=== PATIENT | male | born 1950 | race African-American/Black ===

== ENCOUNTER 2017-08-17 11:58 | Emergency (ER) | payer MEDICARE, BC ==
[~2017-08-17] VITALS: Ht 177.8 cm; Wt 69.8 kg
[~2017-08-17 11:58] MED LIST: ADVAIR HFA115 MCG/21 PO; ALBUTEROL SULFAT2 MG PO; ALBUTEROL2.5 MG/0.5 INH; ALBUTEROL2.5 MG/31 INH; ALDACTONE25 MG PO; ALLERGY MEDICAT25 MG PO; ASPIR 8181 MG PO; ASPIRIN325 PG; ATORVASTATIN CA40 MG PO; BENADRYL25 MG PO; BISACODYL5 MG PO; CALCIUM ACETAT667 MG; CARAFATE 1 GM TA1 G1 PO; CATAPRES0.1 MG PO; CEFUROXIME250 MG PO; CLONIDINE0.1 PO; COLACE100 MG PO; COREG3.125 MG PO; COUMADIN 2 MG TA2 M1 PO; COUMADIN 3 MG TA3 M1 PO; COUMADIN 5 MG TA5 M1; COUMADIN 5 MG TA5 M1 PO; CYCLOBENZAPRINE5 MG PO; DEMADEX20 MG PO; DOCUSATE SODIU100 MG PO; DULCOLAX5 MG PO; DUONEB 2.5-0.5 M3 ML INH; ENOXAPARIN60 MG/0.1; ENOXAPARIN60 MG/0.1 SUBQ; EPOGEN3000 UNIT/ IV; FENTANYL PA12 MCG/H1 TOP; FENTANYL PA25 MCG/HR TOP; HYDRALAZINE 2525 MG PO; HYDROCODONE-AP1 EAC6 PO; ISOSORBIDE MONO60 M1; ISOSORBIDE MONO60 M1 PO; LANTUS100 UNIT/M; LANTUS100 UNIT/M SUBQ; LASIX 40 MG TAB40 M2 PO; LASIX 80 MG TAB80 MG PO; LEVAQUIN 250 M250 MG PO; LEVAQUIN 500 M500 M1 PO; LIPITOR10 MG PO; LISINOPRIL5 MG PO; MAGNESIUM OXID400 MG PO; MELATONIN3 MG PO; MIDODRINE HCL 55 M1 PO; MULTIVITAMIN PO; NEPHROCAPS SOFT1 CAP PO; NORCO 5-325 TA1 EACH PO; NORVASC10 MG PO; NOVOLOG100 UNIT/1; NOVOLOG100 UNIT/1 SUBQ; NYAMYC15 GM TOP; OXYCODONE HCL 55 MG PO; OXYGEN MISCELL; OXYGEN NASAL; PACERONE 200 M200 M1 PO; PEPCID20 MG PO; PHENERGAN 25 MG25 M1 PO; PHOSLO667 MG PO; PREDNISONE 10 M10 MG PO; PREDNISONE 20 M20 M1 PO; PROTONIX40 M1 PO; REGLAN 10 MG TA10 MG PO; SEROQUEL 25 MG25 M2 PO; SINGULAIR 10 MG10 M1 PO; SYMBICORT80 MCG/4.1 INH; TOPROL XL100 MG PO; TYLENOL EXTRA500 MG PO; TYLENOL325 MG PO; VENTOLIN HFA 1818 GM PO; VITAMIN B-1100 M1 PO; VITAMIN D1000 UNI1 PO; XANAX 0.25 MG0.25 MG PO; ZOFRAN ODT4 MG PO
[2017-08-17 12:17] LABS: ABSOLUTE BASOPHILS 0.1 thou/uL (0.0-0.2); ABSOLUTE EOSINOPHILS 0.1 thou/uL (0.0-0.7); ABSOLUTE LYMPHOCYTES 0.7 thou/uL (0.8-5.3); ABSOLUTE MONOCYTES 0.7 thou/uL (0.0-1.2); ABSOLUTE NEUTROPHILS 3.6 thou/uL (1.6-8.1); BASOPHILS 1.4 %; EOSINOPHILS 1.9 %; HEMATOCRIT 35.9 % (42.0-52.0); HEMOGLOBIN 11.7 gm/dL (14.0-18.0); LYMPHOCYTES 14.3 %; MCH 33.5 pg (26.0-34.0); MCHC 32.5 g/dL (28.0-37.0); MCV 102.9 fL (80.0-100.0); MONOCYTES 13.4 %; MPV 8.6 fl. (7.2-11.1); NUCLEATED RBCS 0 /100WBC; PLATELET COUNT* 229 thou/uL (150-400); RBC 3.49 mil/uL (4.50-6.00); RDW-CV 19.1 % (10.5-14.5); WBC 5.2 thou/uL (4.0-11.0)
[2017-08-17 12:25] LABS: CALCIUM 9.1 mg/dL (8.5-10.1); CREATININE 2.9 mg/dL (0.6-1.3); POTASSIUM 4.2 mmol/L (3.5-5.1)
[2017-08-17 12:26] LABS: APTT 38.7 Seconds (25.0-31.3); INR 1.5
[2017-08-17 12:29] LABS: ALBUMIN 2.8 g/dL (3.4-5.0); TOTAL BILIRUBIN 0.4 mg/dL (<0.1-1.0); TOTAL PROTEIN 7.9 g/dL (6.4-8.2)
[2017-08-17 12:51] VITALS: BP 149/86
== END 2017-08-17 12:52 | disposition home or self-care (01) ==
LOC: M.ERS 11:58
PROVIDERS: Family Medicine
DX: Z48.01 Encounter for change or removal of surgical wound dressing (principal); J44.9 Chronic obstructive pulmonary disease, unspecified; E78.00 Pure hypercholesterolemia, unspecified; E11.9 Type 2 diabetes mellitus without complications; I50.9 Heart failure, unspecified; I10 Essential (primary) hypertension; Z79.4 Long term (current) use of insulin; Z88.0 Allergy status to penicillin

== ENCOUNTER → 2017-08-18 | Outpatient (CLI) | payer MEDICARE, BC | LOC: M.ULTRA 08-15 09:00 | DX: K76.0 Fatty (change of) liver, not elsewhere classified (principal); N26.1 Atrophy of kidney (terminal); K76.89 Other specified diseases of liver; I25.10 Atherosclerotic heart disease of native coronary artery without angina pectoris; I42.9 Cardiomyopathy, unspecified; N18.6 End stage renal disease; E11.9 Type 2 diabetes mellitus without complications; E78.00 Pure hypercholesterolemia, unspecified; I48.91 Unspecified atrial fibrillation; J15.6 Pneumonia due to other Gram-negative bacteria; J96.10 Chronic respiratory failure, unspecified whether with hypoxia or hypercapnia; E44.0 Moderate protein-calorie malnutrition; I13.2 Hypertensive heart and chronic kidney disease with heart failure and with stage 5 chronic kidney disease, or end stage renal disease; E11.22 Type 2 diabetes mellitus with diabetic chronic kidney disease; I50.23 Acute on chronic systolic (congestive) heart failure; J44.9 Chronic obstructive pulmonary disease, unspecified; E78.5 Hyperlipidemia, unspecified; E87.5 Hyperkalemia ==

== ENCOUNTER 2017-09-07 11:48 | Emergency (ER) | payer MEDICARE, BC ==
[~2017-09-07] VITALS: Ht 177.8 cm; Wt 70.1 kg
[2017-09-07 11:50] VITALS: BP 147/89
== END 2017-09-07 12:27 | disposition home or self-care (01) ==
LOC: M.ERS 11:48
DX: G97.52 Postprocedural hemorrhage of a nervous system organ or structure following other procedure (principal); J44.9 Chronic obstructive pulmonary disease, unspecified; I25.10 Atherosclerotic heart disease of native coronary artery without angina pectoris; E78.00 Pure hypercholesterolemia, unspecified; E11.22 Type 2 diabetes mellitus with diabetic chronic kidney disease; N18.6 End stage renal disease; I13.2 Hypertensive heart and chronic kidney disease with heart failure and with stage 5 chronic kidney disease, or end stage renal disease; Z99.2 Dependence on renal dialysis; Z79.4 Long term (current) use of insulin; Z88.0 Allergy status to penicillin; Y83.9 Surgical procedure, unspecified as the cause of abnormal reaction of the patient, or of later complication, without mention of misadventure at the time of the procedure; Y92.89 Other specified places as the place of occurrence of the external cause

== ENCOUNTER → 2017-09-15 | Outpatient (CLI) | payer MEDICARE, BC | LOC: M.CT 11:46 → M.RAD 11:46 → M.CT 13:00 | DX: M19.071 Primary osteoarthritis, right ankle and foot (principal); R91.1 Solitary pulmonary nodule; I70.0 Atherosclerosis of aorta; I77.819 Aortic ectasia, unspecified site; N62 Hypertrophy of breast; J43.8 Other emphysema; I25.10 Atherosclerotic heart disease of native coronary artery without angina pectoris; K76.89 Other specified diseases of liver; N20.0 Calculus of kidney; N18.6 End stage renal disease; I42.9 Cardiomyopathy, unspecified ==

== ENCOUNTER → 2017-10-13 | Outpatient (CLI) | payer MEDICARE, BC | LOC: M.LAB 08:52 → M.CT 11:00 | DX: J43.9 Emphysema, unspecified (principal); I71.2 Thoracic aortic aneurysm, without rupture; N18.6 End stage renal disease; K76.89 Other specified diseases of liver ==

== ENCOUNTER → 2017-11-15 | Outpatient (CLI) | payer MEDICARE, BC ==
[2017-11-15 10:32] LABS: ALBUMIN 2.8 g/dL (3.4-5.0); DIRECT BILIRUBIN 0.1 mg/dL (<0.1-0.3)
[2017-11-15 10:47] LABS: TOTAL BILIRUBIN 0.5 mg/dL (<0.1-1.0); TOTAL PROTEIN 8.1 g/dL (6.4-8.2)
== END ==
LOC: M.LAB 10:01
PROVIDERS: Nurse Practitioner
DX: I48.0 Paroxysmal atrial fibrillation (principal); Z79.899 Other long term (current) drug therapy; I13.2 Hypertensive heart and chronic kidney disease with heart failure and with stage 5 chronic kidney disease, or end stage renal disease; E11.22 Type 2 diabetes mellitus with diabetic chronic kidney disease; I50.9 Heart failure, unspecified; N18.6 End stage renal disease; J43.9 Emphysema, unspecified

== ENCOUNTER → 2018-05-23 | Outpatient (CLI) | payer MEDICARE, BC | LOC: M.RAD 11:00 | DX: I51.7 Cardiomegaly (principal); Z79.899 Other long term (current) drug therapy ==

== ENCOUNTER → 2018-07-20 | Outpatient (CLI) | payer MEDICARE | LOC: M.ULTRA 06:48 | DX: Z13.6 Encounter for screening for cardiovascular disorders (principal); I70.0 Atherosclerosis of aorta ==

== ENCOUNTER 2018-07-28 11:53 | Emergency (ER) | payer MEDICARE ==
[~2018-07-28] VITALS: Ht 177.8 cm; Wt 64.9 kg
[2018-07-28] MEDS ORDERED: RENAL CAPS SOFTG1 MG PO (12:01)
[2018-07-28] MEDS ORDERED: STOOL SOFTENER100 MG PO (12:03)
[2018-07-28] MEDS ORDERED: XANAX 0.25 MG0.25 MG PO (12:05)
[2018-07-28 12:58] LABS: HEMATOCRIT 33.2 % (42.0-52.0); MCH 34.3 pg (26.0-34.0); MCHC 33.3 g/dL (28.0-37.0); MPV 8.2 fl. (7.2-11.1); NUCLEATED RBCS 0 /100WBC; PLATELET COUNT* 192 thou/uL (150-400); RBC 3.22 mil/uL (4.50-6.00); RDW-CV 16.5 % (10.5-14.5); WBC 8.4 thou/uL (4.0-11.0)
[2018-07-28 13:06] LABS: CALCIUM 9.4 mg/dL (8.5-10.1); CREATININE 2.8 mg/dL (0.6-1.3)
[2018-07-28 13:08] LABS: APTT 49.7 Seconds (25.0-31.3); INR 1.8; PROTIME 17.9 Seconds (9.20-11.50)
[2018-07-28 13:18] LABS: ALBUMIN 2.6 g/dL (3.4-5.0); TOTAL BILIRUBIN 0.3 mg/dL (<0.1-1.0); TOTAL PROTEIN 8.1 g/dL (6.4-8.2)
[2018-07-28 13:20] LABS: ABSOLUTE LYMPHOCYTES 0.9 thou/uL (0.8-5.3); ABSOLUTE MONOCYTES 0.3 thou/uL (0.0-1.2); ABSOLUTE NEUTROPHILS 7.2 thou/uL (1.6-8.1); ATYPICAL LYMPHS 2 %; PLATELET ESTIMATE ADEQUATE
[2018-07-28 13:29] LABS: POTASSIUM 2.9 mmol/L (3.5-5.1)
[2018-07-28 14:10] VITALS: BP 124/76
== END 2018-07-28 14:11 | disposition home or self-care (01) ==
LOC: M.ERS 11:53
PROVIDERS: Emergency Medicine
DX: T82.838A Hemorrhage due to vascular prosthetic devices, implants and grafts, initial encounter (principal); J44.9 Chronic obstructive pulmonary disease, unspecified; I25.10 Atherosclerotic heart disease of native coronary artery without angina pectoris; E78.00 Pure hypercholesterolemia, unspecified; I13.2 Hypertensive heart and chronic kidney disease with heart failure and with stage 5 chronic kidney disease, or end stage renal disease; E11.22 Type 2 diabetes mellitus with diabetic chronic kidney disease; N18.6 End stage renal disease; I50.9 Heart failure, unspecified; Z99.2 Dependence on renal dialysis; Z79.4 Long term (current) use of insulin; Z88.0 Allergy status to penicillin; Z87.01 Personal history of pneumonia (recurrent); Y84.8 Other medical procedures as the cause of abnormal reaction of the patient, or of later complication, without mention of misadventure at the time of the procedure; Y92.89 Other specified places as the place of occurrence of the external cause

== ENCOUNTER → 2018-08-08 | Outpatient (CLI) | payer MEDICARE, BC ==
[~2018-08-08] VITALS: Ht 177.8 cm; Wt 65.1 kg
[~2018-08-08] MED LIST changes: -LIPITOR10 MG PO; +RENAL CAPS SOFTG1 MG PO; +STOOL SOFTENER100 MG PO
[2018-08-08 12:55] VITALS: BP 113/67
[2018-08-08 12:58] LABS: HEMATOCRIT 33.2 % (42.0-52.0); MCHC 33.1 g/dL (28.0-37.0); MCV 105.6 fL (80.0-100.0); MPV 8.6 fl. (7.2-11.1); RBC 3.14 mil/uL (4.50-6.00); RDW-CV 16.6 % (10.5-14.5); WBC 4.8 thou/uL (4.0-11.0)
[2018-08-08 13:06] LABS: CALCIUM 9.5 mg/dL (8.5-10.1); CREATININE 5.7 mg/dL (0.6-1.3); POTASSIUM 3.1 mmol/L (3.5-5.1)
[2018-08-08 13:08] LABS: APTT 59.8 Seconds (25.0-31.3); INR 2.4
[2018-08-08 13:10] LABS: ALBUMIN 2.5 g/dL (3.4-5.0); TOTAL BILIRUBIN 0.4 mg/dL (<0.1-1.0); TOTAL PROTEIN 7.8 g/dL (6.4-8.2)
[2018-08-08 16:00] VITALS: BP 117/72
[2018-08-08 16:15] VITALS: BP 128/71
--- NOTE | 2018-08-09 07:46 | OP ---
[address] [address] OPERATIVE REPORT Name: BING ALFONSO [id number] Admission: 08/08/18 Attend Phys: Tristin Priest DO Discharge: Date of : 46 Report #: [id number] THIS REPORT FOR: //name// CC: Tristin Kramer DATE OF SERVICE: 08/08/2018 PREOPERATIVE DIAGNOSES: End-stage renal disease with prolonged bleeding after hemodialysis. POSTOPERATIVE DIAGNOSES: End-stage renal disease with prolonged bleeding after hemodialysis. OPERATION: 1. Ultrasound-guided access to the right upper extremity fistula. 2. Right upper extremity fistulogram. 3. Right subclavian vein angioplasty. SURGEON: Tristin Priest DO. BACKPACKERS MANAGER: MAHIN Dalton. ANESTHESIA: Sedation with local. ESTIMATED BLOOD LOSS: 10 mL. FLUIDS: Less than 100 crystalloid. URINE OUTPUT: None. SPECIMENS: None. IMPLANTS: None. COMPLICATIONS: None. FINDINGS: His right upper extremity fistulogram demonstrated patent fistula circuit. There is really no significant anastomotic stenosis. There is really no significant stenosis within the main body of the fistula. There appeared to be mild to possibly moderate stenosis at the subclavian vein at the under section of the first rib and clavicle. Angioplasty of this, there is minimal waist and there is persistent mild residual stenosis. CLINICAL HISTORY: The patient is 68-year-old male with end-stage renal disease. He has been dialyzing through a transposed right brachiobasilic arteriovenous [facility] [address] [place] [address] OPERATIVE REPORT Name: BING ALFONSO Room: [facility] Diane#: [id number] Admission: 08/08/18 Attend Phys: Tristin Priest, Discharge: Date of : 46 Report #: [id number] fistula, has been now with some issues with prolonged bleeding after dialysis. He is therapeutic on anticoagulation for mechanical heart valve. Recommendations were made for fistulogram and possible intervention. DETAILS OF PROCEDURE: After informed consent was obtained, the patient was taken to the angio suite, placed on the angio bed in supine position. His right upper extremity was prepped and draped in usual sterile fashion. A full timeout was performed identifying correct patient and procedure. He was administered sedation by the nurse at my discretion. His right near the antecubital fossa infiltrated with local anesthetic and then accessed the fistula with a micropuncture needle using ultrasound guidance. These images were preserved. Then, using Seldinger technique, a microwire and micro sheath were placed and performed the right upper extremity fistulogram with the findings noted above. I then placed in a Bentson wire and a 6-Yakut sheath, isolated the stenosis in the subclavian vein and then angioplastied this with a 10 mm [place] balloon. Again there was minimal waist and just a persistent mild stenosis. It did not appear to be really hemodynamically significant. At this point, no real further significant stenosis identified. The 4-0 Monocryl pursestring suture was placed around the sheath. The wire and the sheath were removed. Manual pressure was held for a few minutes. Once hemostasis was assured, sterile dressing was applied. All sponge, sharp and instrument counts reported correct as x 2. He tolerated the procedure well and was transferred back to the recovery area in stable condition. We continued to use the fistula for dialysis needs. <ELECTRONICALLY SIGNED> By: Tristin Priest DO 08/09/18 0746 1549 1618Akalina Priest DO /nt
== END | disposition home or self-care (01) ==
LOC: M.INT 12:01
PROVIDERS: Surgery
DX: T82.838A Hemorrhage due to vascular prosthetic devices, implants and grafts, initial encounter (principal); I87.1 Compression of vein; I13.2 Hypertensive heart and chronic kidney disease with heart failure and with stage 5 chronic kidney disease, or end stage renal disease; E11.22 Type 2 diabetes mellitus with diabetic chronic kidney disease; N18.6 End stage renal disease; I50.9 Heart failure, unspecified; I42.9 Cardiomyopathy, unspecified; I25.10 Atherosclerotic heart disease of native coronary artery without angina pectoris; J44.9 Chronic obstructive pulmonary disease, unspecified; Z95.5 Presence of coronary angioplasty implant and graft; Z99.2 Dependence on renal dialysis; Z98.890 Other specified postprocedural states; Z79.899 Other long term (current) drug therapy; Z79.01 Long term (current) use of anticoagulants; Z95.2 Presence of prosthetic heart valve; Z87.891 Personal history of nicotine dependence; Z88.0 Allergy status to penicillin; Z79.4 Long term (current) use of insulin; Z79.891 Long term (current) use of opiate analgesic; Y83.8 Other surgical procedures as the cause of abnormal reaction of the patient, or of later complication, without mention of misadventure at the time of the procedure

== ENCOUNTER → 2018-08-17 | Outpatient (CLI) | payer MEDICARE, BC | LOC: M.NUC 06:41 → EDSTATUS 07:30 → M.NUC 07:30 | DX: K31.84 Gastroparesis (principal); R11.0 Nausea; R11.10 Vomiting, unspecified ==

== ENCOUNTER 2018-08-20 20:57 | Inpatient (IN) | payer MEDICARE, BC ==
[~2018-08-20] VITALS: Ht 177.8 cm; Wt 66.4 kg
[2018-08-20 20:59] VITALS: BP 111/71
[2018-08-20 21:24] LABS: ABSOLUTE BASOPHILS 0.1 thou/uL (0.0-0.2); ABSOLUTE EOSINOPHILS 0.1 thou/uL (0.0-0.7); ABSOLUTE LYMPHOCYTES 1.2 thou/uL (0.8-5.3); ABSOLUTE MONOCYTES 0.4 thou/uL (0.0-1.2); BASOPHILS 1.1 %; EOSINOPHILS 1.9 %; HEMATOCRIT 33.1 % (42.0-52.0); HEMOGLOBIN 10.7 gm/dL (14.0-18.0); LYMPHOCYTES 20.3 %; MCH 34.7 pg (26.0-34.0); MCHC 32.4 g/dL (28.0-37.0); MCV 106.9 fL (80.0-100.0); MONOCYTES 7.4 %; MPV 8.3 fl. (7.2-11.1); NUCLEATED RBCS 0 /100WBC; PLATELET COUNT* 227 thou/uL (150-400); POLYS 69.3 %; RBC 3.09 mil/uL (4.50-6.00); RDW-CV 16.7 % (10.5-14.5); WBC 5.8 thou/uL (4.0-11.0)
[2018-08-20 21:30] LABS: ANION GAP 15 mmol/L (7-16); BUN 34 mg/dL (7-18); CALCIUM 8.9 mg/dL (8.5-10.1); CHLORIDE 93 mmol/L (98-107); CO2 22 mmol/L (21-32); CREATININE 7.2 mg/dL (0.6-1.3); GLUCOSE 211 mg/dL (70-99); SODIUM 130 mmol/L (136-145)
[2018-08-20 21:30] LABS: BE -6.1 mmol/L (-2 to +3); PCO2 47.7 mmHg (35.0-45.0)
[2018-08-20 21:32] LABS: INR 3.4; PROTIME 34.2 Seconds (9.20-11.50)
[2018-08-20 21:34] LABS: pH 7.259 (7.340-7.450)
[2018-08-20 21:37] LABS: ALBUMIN 2.4 g/dL (3.4-5.0); ALKALINE PHOSPHATASE 118 U/L (46-116); SGOT 62 U/L (15-37); SGPT 36 U/L (30-65); TOTAL BILIRUBIN 0.3 mg/dL (<0.1-1.0); TOTAL PROTEIN 7.7 g/dL (6.4-8.2); TROPONIN-I LEVEL <0.06 ng/mL (<0.06)
[2018-08-20 21:39] LABS: POTASSIUM 4.5 mmol/L (3.5-5.1)
[2018-08-21 02:05] VITALS: BP 116/69
[2018-08-21 02:31] LABS: INFLUENZA A ANTIGEN None Detected (None Detect); INFLUENZA B ANTIGEN None Detected (None Detect)
[2018-08-21 03:00] VITALS: BP 126/69
[2018-08-21 08:00] VITALS: BP 128/70
[2018-08-21 09:43] LABS: HEMATOCRIT 26.9 % (42.0-52.0); HEMOGLOBIN 8.8 gm/dL (14.0-18.0); MCHC 32.6 g/dL (28.0-37.0); MCV 107.3 fL (80.0-100.0); MPV 8.2 fl. (7.2-11.1); RBC 2.51 mil/uL (4.50-6.00); RDW-CV 16.7 % (10.5-14.5)
[2018-08-21 09:51] LABS: CALCIUM 8.7 mg/dL (8.5-10.1); POTASSIUM 3.8 mmol/L (3.5-5.1)
--- NOTE | 2018-08-21 11:08 | EKG ---
[place] [id number] ELECTROCARDIOGRAM REPORT Name: BING ALFONSO Room: [address] ADM IN M.R.#: [id number] Admission: 08/20/18 Attend Phys: Johnnie Jeffrey Discharge: Date of : 46 Report #: [id number] THIS REPORT FOR: //name// [facility] ED Test Date: 2018-08-20 Test Time: 21:26:07 Pat Name: BING ALFONSO Department: Room: [facility] Gender: M Senior Software Development Engineer: BOBBI : 1950 Requested By: Sally Gonzalez Order Number: [id number] MD: Eugenio Alexandra Measurements Intervals [place] Rate: 85 P: -21 [place]: 188 QRS: -40 QRSD: 137 T: 122 QT: 433 QTc: 515 Interpretive Statements Sinus rhythm Left bundle branch block Baseline wander in lead(s) II,III,aVR,aVL,aVF Compared to ECG 05/27/2017 13:47:20 No significant changes Electronically Signed On 08-21-2018 11:08:39 SHOE REPAIRMAN by Eugenio Alexandra [email or web address] <ELECTRONICALLY SIGNED> By: Eugenio Alexandra MD, FACC 08/21/18 1108 25 25 Eugenio Alexandra MD, [facility] /EPI
[2018-08-21 13:44] VITALS: BP 133/80
[2018-08-21 17:13] VITALS: BP 100/61
[2018-08-21 20:00] VITALS: BP 106/65
[2018-08-22 00:38] VITALS: BP 126/72
[2018-08-22 04:00] VITALS: BP 101/62
[2018-08-22 05:34] LABS: HEMATOCRIT 26.4 % (42.0-52.0); HEMOGLOBIN 8.8 gm/dL (14.0-18.0); MCH 35.6 pg (26.0-34.0); MCHC 33.4 g/dL (28.0-37.0); MCV 106.6 fL (80.0-100.0); MPV 8.2 fl. (7.2-11.1); RBC 2.48 mil/uL (4.50-6.00); RDW-CV 16.1 % (10.5-14.5); WBC 4.9 thou/uL (4.0-11.0)
[2018-08-22 05:35] LABS: INR 3.6; PROTIME 36.3 Seconds (9.20-11.50)
[2018-08-22 06:14] LABS: ALBUMIN 2.2 g/dL (3.4-5.0); CALCIUM 9.1 mg/dL (8.5-10.1); CREATININE 4.3 mg/dL (0.6-1.3); MAGNESIUM 2.1 mg/dL (1.8-2.4); POTASSIUM 3.1 mmol/L (3.5-5.1); TOTAL BILIRUBIN 0.3 mg/dL (<0.1-1.0); TOTAL PROTEIN 6.1 g/dL (6.4-8.2)
[2018-08-22 08:00] VITALS: BP 105/62
--- NOTE | 2018-08-22 09:59 | CON ---
[address] [address] CONSULTATION Name: JEFF ALFONSO Room: [address] IN M.R.#: [id number] Admission: 08/20/18 Attend Phys: Johnnie Jeffrey Discharge: Date of : 46 Report #: [id number] THIS REPORT FOR: //name// CC: Tanya Meneses DATE OF SERVICE: 08/21/2018 NEPHROLOGY CONSULTATION CONSULTING PHYSICIAN: Jeff Meneses DO. REASON FOR NEPHROLOGY CONSULTATION: End-stage renal disease, for hemodialysis needs. REASON FOR ADMISSION: Confusion and weakness. HISTORY OF PRESENT ILLNESS: This is a 68-year-old male with past medical history of diabetes mellitus type 2, who has been on dialysis for 3 years; COPD with chronic hypoxia, on 3 liters of oxygen at home; congestive heart failure with ejection fraction of 20% back in 2017 and end-stage renal disease, on hemodialysis every Tuesday, Tuesday and Tuesday, who was brought to the Emergency Room because of generalized weakness and confusion. By the time he came to the hospital, his weakness still stayed, but his confusion has gone away. He did not miss any dialysis sessions; his last dialysis was on Tuesday. He is currently just weak. He has a right arm AV fistula. He does not make much urine. He goes to [facility] under the care of Dr. Rachel. ALLERGIES: PENICILLIN. REVIEW OF SYSTEMS: As mentioned above, weakness and confusion and confusion has resolved; otherwise, a 10-point review of systems was done and it was negative. PAST MEDICAL AND SURGICAL HISTORY: Includes COPD; end-stage renal disease, on hemodialysis every Tuesday, Tuesday and Tuesday. He has a right upper arm AV fistula; coronary artery disease, status post one stent; dyslipidemia; pneumonia with sepsis; mitral valve replacement; likely ischemic cardiomyopathy with ejection fraction of 20% back in 2017; diabetes type 2; hypertension and previous tracheostomy. HOME MEDICATIONS: Include magnesium oxide, amiodarone, pantoprazole, metoclopramide, warfarin, oxygen, midodrine, docusate, insulin glargine, furosemide, budesonide, acetaminophen, oxycodone, [place], clonidine, folic acid, alprazolam, atorvastatin [place] [address] CONSULTATION Name: JEFF ALFONSO Room: [address] IN [facility]#: [id number] Admission: 08/20/18 Attend Phys: Johnnie Jeffrey Discharge: Date of : 46 Report #: [id number] FAMILY HISTORY: Noncontributory to current admission. SOCIAL HISTORY: The patient reports not smoking, but he reports drinking 2 drinks of hard liquor every day. No illicit drug use reported. PHYSICAL EXAMINATION: VITAL SIGNS: His blood pressure is 128/70, respiratory rate is 18, pulse rate is 86, temperature 36.7 and pulse ox is 98% on 2 liters of oxygen by nasal cannula. GENERAL: He is awake, alert and oriented x 3. HEAD, EYES, EARS, NOSE AND THROAT: Mucous membranes are moist. NECK: There is no JVD. CHEST: Bilateral diminished breath sounds. CARDIOVASCULAR: S1, S2 normal. No murmurs. ABDOMEN: Soft, nondistended and nontender. Bowel sounds are present. EXTREMITIES: He has right upper arm AV fistula with good bruit and thrill. Lower extremities, there is no edema. NEUROLOGICAL FUNCTION. Gross neurologic function seems to be intact. PSYCHIATRIC: Mood at this point seems to be normal. LABORATORY DATA: Hemoglobin is 10.7, platelet count is 227,000. Sodium is 130 and potassium 4.5 and all other labs were reviewed. ABG was reviewed. IMAGING DATA: Neck CT, head CT, chest x-ray, chest CT and abdominal and pelvic CT were reviewed. ASSESSMENT: 1. End-stage renal disease, on hemodialysis every Tuesday, Tuesday and Tuesday. 2. Hyponatremia due to impaired free water clearance, sodium 130 on admission. 3. Anemia of chronic disease. Hemoglobin 10.7 on admission. 4. Confusion, has resolved. 5. Generalized weakness. 6. Combination of respiratory and metabolic acidosis. 7. Elevated AST and alkaline phosphatase. 8. 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 9. Chronic hypotension, use of midodrine as needed. PLAN: 1. Plan on dialysis today. The patient looks pretty euvolemic at this point, so we will try to bring him down to his dry weight. 2. Treatment for his weakness as per primary. He might need physical therapy. 3. I have stopped his morphine as well as magnesium oxide because of renal insufficiency. Sodium should get better with dialysis. [address] [place] [address] CONSULTATION Name: JEFF ALFONSO Room: [address] IN M.R.#: [id number] Admission: 08/20/18 Attend Phys: Johnnie Jeffrey Discharge: Date of : 46 Report #: [id number] Thank you for the consultation. We will continue to follow along with you for his dialysis needs. <ELECTRONICALLY SIGNED> By: Adela Molina MD 08/22/18 0959 0909 1051Abonilla Molina MD /nt
[2018-08-22 12:14] VITALS: BP 97/60
[2018-08-22 17:32] VITALS: BP 103/63
[2018-08-22 20:00] VITALS: BP 96/63
[2018-08-23 04:12] LABS: HEMATOCRIT 25.6 % (42.0-52.0); HEMOGLOBIN 8.5 gm/dL (14.0-18.0); MCH 35.4 pg (26.0-34.0); MCHC 33.2 g/dL (28.0-37.0); MCV 106.7 fL (80.0-100.0); MPV 8.3 fl. (7.2-11.1); RBC 2.4 mil/uL (4.50-6.00); WBC 4.8 thou/uL (4.0-11.0)
[2018-08-23 04:31] LABS: INR 2.5; PROTIME 25.1 Seconds (9.20-11.50)
[2018-08-23 04:35] LABS: CALCIUM 8.9 mg/dL (8.5-10.1); POTASSIUM 3.6 mmol/L (3.5-5.1)
[2018-08-23 07:50] VITALS: BP 105/64
[2018-08-23 15:30] VITALS: BP 105/63
[2018-08-23 20:30] VITALS: BP 91/58
[2018-08-24 06:20] LABS: ABSOLUTE BASOPHILS 0.1 thou/uL (0.0-0.2); ABSOLUTE EOSINOPHILS 0.1 thou/uL (0.0-0.7); ABSOLUTE LYMPHOCYTES 0.7 thou/uL (0.8-5.3); ABSOLUTE MONOCYTES 0.6 thou/uL (0.0-1.2); ABSOLUTE NEUTROPHILS 2.7 thou/uL (1.6-8.1); BASOPHILS 1.4 %; EOSINOPHILS 2.8 %; HEMATOCRIT 26.8 % (42.0-52.0); HEMOGLOBIN 8.8 gm/dL (14.0-18.0); LYMPHOCYTES 16.3 %; MCH 35.1 pg (26.0-34.0); MCHC 32.8 g/dL (28.0-37.0); MONOCYTES 14.6 %; MPV 8.4 fl. (7.2-11.1); NUCLEATED RBCS 0 /100WBC; PLATELET COUNT* 140 thou/uL (150-400); POLYS 64.9 %; RDW-CV 16.3 % (10.5-14.5); WBC 4.2 thou/uL (4.0-11.0)
[2018-08-24 06:24] LABS: INR 1.7; PROTIME 16.9 Seconds (9.20-11.50)
[2018-08-24 06:38] LABS: ALBUMIN 2.1 g/dL (3.4-5.0); CALCIUM 8.5 mg/dL (8.5-10.1); POTASSIUM 4.1 mmol/L (3.5-5.1); TOTAL BILIRUBIN 0.3 mg/dL (<0.1-1.0); TOTAL PROTEIN 6.4 g/dL (6.4-8.2)
[2018-08-24 06:39] LABS: CREATININE 3.5 mg/dL (0.6-1.3)
[2018-08-24 07:20] VITALS: BP 105/62
[2018-08-24 07:22] LABS: ESR (SEDRATE) 37 mm/hr (0-20)
[2018-08-24] MEDS ORDERED: NORCO 5-325 TA1 EACH PO (08:59)
[2018-08-24] MEDS ORDERED: XANAX 0.25 MG0.25 MG PO (08:59)
[2018-08-24] MEDS ORDERED: BENTYL 20 MG TA20 M1 PO (08:59)
[2018-08-24 10:16] VITALS: BP 105/62
[2018-08-24 13:13] VITALS: BP 105/62
--- NOTE | 2018-08-26 22:50 | CON ---
[address] [address] CONSULTATION Name: BING ALFONSO Room: [address] IN M.R.#: [id number] Admission: 08/20/18 Attend Phys: Johnnie Jeffrey Discharge: 08/24/18 Date of : 46 Report #: [id number] THIS REPORT FOR: //name// CC: Leilani Meneses DATE OF SERVICE: 08/23/2018 REFERRING PHYSICIAN: Dr. Indu Landeros REASON FOR CONSULTATION: Recurrent nausea and vomiting. IMPRESSION: 1. Recurrent nausea and vomiting with a history of gastroparesis, but now with tachygastria by recent gastric emptying scan. 2. End-stage renal disease requiring chronic hemodialysis. 3. Diabetes mellitus with complications. 4. Coronary artery disease, previous non-STEMI and history of congestive heart failure. RECOMMENDATIONS: Since the patient has continued to have problem with nausea and vomiting despite being on Reglan 10 mg q.i.d. a.c. and at bedtime and then dropping the dose down to 5 mg q.i.d. a.c. and at bedtime with his most recent gastric emptying scan revealed relatively fast emptying, we will discontinue the Reglan altogether and begin him on Bentyl 10 mg q.i.d. a.c. and at bedtime and titrate upwards as needed. I have discussed the plans with the patient as well and he is agreeable to the same. HISTORY OF PRESENT ILLNESS: The patient is a pleasant 68-year-old -[place] male who was admitted to the hospital because of problems with weakness and decreased mental status with decreased mobility. We were asked to see him because he has had problems with continued issues related to nausea and vomiting and has been followed by our practice for quite some time. He has had history of gastroparesis with his previous gastric emptying scan revealing up to 15% of retained food at 4 hours, but most recently he was seen in our office by our PA, Nakita Tellez, and underwent a gastric emptying scan on the , which revealed a relatively fast emptying at 1-2 hours and with no residual food noted at 3 and 4 hours. Despite the fact that his dosing was decreased on the Reglan, he continued to have problem with nausea and vomiting. It happens on a fairly daily basis. He denies any regurgitation or reflux issues. He feels he just gets the food down and he starts throwing back up. He has not had any problems with abdominal pain or any problem with his bowels or bowel frequency. His bowels are moving fine. He has undergone endoscopic studies [place] [address] CONSULTATION Name: BING ALFONSO Room: [address] IN M.R.#: [id number] Admission: 08/20/18 Attend Phys: Johnnie Jeffrey Discharge: 08/24/18 Date of : 46 Report #: [id number] the past and not been unrevealing. He has been in the hospital for further evaluation and treatment. ALLERGIES: Not that I know of. MEDICATIONS: Include Symbicort, acetaminophen, oxycodone just intermittently, clonidine, folic acid, alprazolam, amiodarone, pantoprazole once daily, metoclopramide 10 mg q.i.d. a.c. and at bedtime and now down to 5, warfarin, midodrine, docusate sodium, insulin, furosemide and atorvastatin. PAST MEDICAL HISTORY: Remarkable for coronary artery disease, he has history of CHF, he has history of chronic kidney disease and end-stage renal disease requiring chronic hemodialysis. He has a right upper extremity fistula. He has a history of gastroparesis, diabetes, hypertension and hyperlipidemia. He has had previous mitral valve replacement as well. SOCIAL HISTORY: The patient quit smoking over a year ago, previously had about a 53 pack year history. Drinks alcohol on a regular basis. FAMILY HISTORY: Negative. PHYSICAL EXAMINATION: GENERAL: Revealed appearing 68-year-old -[place] male who is awake and alert. CARDIOPULMONARY: Revealed a regular rate and rhythm. LUNGS: Clear. ABDOMEN: Soft and not distended. No rebound or guarding noted. LABORATORY DATA: His laboratory tests today revealed a white count of 4.8, hemoglobin 8.5, platelet count 138,000, MCV is 106.7 and RDW 16.0. His sodium 134, potassium 3.6, chloride 99, bicarbonate is 30, BUN 36 and creatinine 6.0. On admission, his bilirubin is 0.3, alkaline phosphatase is 92, AST 30 and ALT 29. His albumin is 2.2. The patient had a CT scan of the abdomen and pelvis without IV contrast yesterday, which revealed a prominent liver of about 17.5 with some cysts. Spleen appeared normal. Gallbladder and biliary system appeared normal. Pancreas appears normal. There was no evidence for any fluid within the abdominal cavity such as any ascites. His stomach, small and large bowel appeared to be unremarkable. No evidence for any ileus or any other issues. DISCUSSION: At the present time, the patient [place] [address] CONSULTATION Name: BING ALFONSO Room: [address] IN [facility].#: [id number] Admission: 08/20/18 Attend Phys: Johnnie Jeffrey Discharge: 08/24/18 Date of : 46 Report #: [id number] nausea and vomiting. We will make adjustments with his medications and monitor for response to the same. <ELECTRONICALLY SIGNED> By: Ascencion Monique DO 08/26/18 2250 1639 0527Ascencion Monique DO /nt
== END 2018-08-24 13:08 | DRG 291 ==
LOC: M.ERS 20:57 → M.TBA-ER 23:25 → M.2W 23:25 → M.3W 08-22 14:43
PROVIDERS: Emergency Medicine; Internal Medicine; Internal Medicine Gastroenterology; ADMIT Internal Medicine
PROC: 5A1D70Z Performance of Urinary Filtration, Intermittent, Less than 6 Hours Per Day (ICD-10-PCS; principal; 2018-08-21)
PROC: 5A1D70Z Performance of Urinary Filtration, Intermittent, Less than 6 Hours Per Day (ICD-10-PCS; 2018-08-23)
DX: I13.2 Hypertensive heart and chronic kidney disease with heart failure and with stage 5 chronic kidney disease, or end stage renal disease (principal); N18.6 End stage renal disease; E87.1 Hypo-osmolality and hyponatremia; E87.2 Acidosis; I50.9 Heart failure, unspecified; I42.9 Cardiomyopathy, unspecified; E78.00 Pure hypercholesterolemia, unspecified; E78.5 Hyperlipidemia, unspecified; D63.8 Anemia in other chronic diseases classified elsewhere; I71.2 Thoracic aortic aneurysm, without rupture; I95.9 Hypotension, unspecified; E11.22 Type 2 diabetes mellitus with diabetic chronic kidney disease; E87.6 Hypokalemia; J44.9 Chronic obstructive pulmonary disease, unspecified; I25.10 Atherosclerotic heart disease of native coronary artery without angina pectoris; Z95.5 Presence of coronary angioplasty implant and graft; Z95.2 Presence of prosthetic heart valve; Z88.0 Allergy status to penicillin; Z93.0 Tracheostomy status; I25.2 Old myocardial infarction; Z87.891 Personal history of nicotine dependence; Z82.49 Family history of ischemic heart disease and other diseases of the circulatory system; Z83.3 Family history of diabetes mellitus

== ENCOUNTER → 2018-09-14 | Outpatient (CLI) | payer MEDICARE, BC ==
[~2018-09-14] MED LIST changes: +ATROVENT HFA14 GM INH; +BASAGLAR K100 UNIT/1 SUBQ; +BENTYL 20 MG TA20 M1 PO; +LOPERAMIDE 2 MG2 M1 PO; +PREDNISONE 10 M10 M1 PO
== END ==
LOC: M.CT 10:00
DX: J43.9 Emphysema, unspecified (principal); J90 Pleural effusion, not elsewhere classified; J98.11 Atelectasis; R91.8 Other nonspecific abnormal finding of lung field

== ENCOUNTER → 2018-09-20 | Outpatient (CLI) | payer MEDICARE, BC ==
[~2018-09-20] MED LIST changes: +KEFLEX500 M1 PO; -MAGNESIUM OXID400 MG PO; +MAGOX 400400 MG PO
== END ==
LOC: M.RAD 10:50
DX: J44.9 Chronic obstructive pulmonary disease, unspecified (principal); Z95.4 Presence of other heart-valve replacement

== ENCOUNTER 2018-09-21 12:04 | Inpatient (IN) | payer MEDICARE, BC ==
[~2018-09-21] VITALS: Ht 172.7 cm; Wt 65.8 kg
[~2018-09-21 12:04] MED LIST changes: -ATROVENT HFA14 GM INH; -BASAGLAR K100 UNIT/1 SUBQ; -KEFLEX500 M1 PO; -LOPERAMIDE 2 MG2 M1 PO; -PREDNISONE 10 M10 M1 PO
[2018-09-21 12:13] VITALS: BP 110/62
[2018-09-21 12:36] LABS: ABSOLUTE BASOPHILS 0.1 thou/uL (0.0-0.2); ABSOLUTE EOSINOPHILS 0.1 thou/uL (0.0-0.7); ABSOLUTE LYMPHOCYTES 1.1 thou/uL (0.8-5.3); ABSOLUTE MONOCYTES 0.6 thou/uL (0.0-1.2); ABSOLUTE NEUTROPHILS 4.9 thou/uL (1.6-8.1); BASOPHILS 1.2 %; EOSINOPHILS 1.3 %; HEMATOCRIT 29.1 % (42.0-52.0); HEMOGLOBIN 9.5 gm/dL (14.0-18.0); LYMPHOCYTES 16.3 %; MCH 33.6 pg (26.0-34.0); MCHC 32.5 g/dL (28.0-37.0); MCV 103.2 fL (80.0-100.0); MONOCYTES 8.7 %; MPV 8.4 fl. (7.2-11.1); NUCLEATED RBCS 0 /100WBC; PLATELET COUNT* 226 thou/uL (150-400); POLYS 72.5 %; RBC 2.82 mil/uL (4.50-6.00); RDW-CV 17.5 % (10.5-14.5); WBC 6.7 thou/uL (4.0-11.0)
[2018-09-21 12:48] LABS: APTT 60.9 Seconds (25.0-31.3); INR 2.7; PROTIME 27.4 Seconds (9.20-11.50)
[2018-09-21] MEDS ORDERED: BASAGLAR K100 UNIT/1 SUBQ (12:48)
[2018-09-21] MEDS ORDERED: LOPERAMIDE 2 MG2 M1 PO (12:49)
[2018-09-21] MEDS ORDERED: ATROVENT HFA14 GM INH (12:50)
[2018-09-21] MEDS ORDERED: PREDNISONE 10 M10 M1 PO (12:51)
[2018-09-21 12:57] LABS: ALBUMIN 2.6 g/dL (3.4-5.0); ALKALINE PHOSPHATASE 142 U/L (46-116); ANION GAP 15 mmol/L (7-16); BUN 36 mg/dL (7-18); CALCIUM 9.7 mg/dL (8.5-10.1); CHLORIDE 98 mmol/L (98-107); CO2 26 mmol/L (21-32); GLUCOSE 254 mg/dL (70-99); LIPASE 154 U/L (73-393); MAGNESIUM 2.1 mg/dL (1.8-2.4); NT-PRO BRAIN NAT PEPTIDE 9744 pg/mL (<300); POTASSIUM 3.6 mmol/L (3.5-5.1); SGOT 17 U/L (15-37); SGPT 33 U/L (30-65); SODIUM 139 mmol/L (136-145); TOTAL BILIRUBIN 0.3 mg/dL (<0.1-1.0); TOTAL PROTEIN 7.6 g/dL (6.4-8.2); TROPONIN-I LEVEL <0.06 ng/mL (<0.06)
[2018-09-21 13:45] LABS: BE 0.6 mmol/L (-2 to +3); PCO2 VENOUS 37.4 mmHg (41.0-51.0); PO2 VENOUS 54.6 mmHg (35.0-45.0)
--- NOTE | 2018-09-21 15:01 | EKG ---
[place] [address] ELECTROCARDIOGRAM REPORT Name: BING ALFONSO WON Room: [place] [address] ADM IN M.R.#: [id number] Admission: 09/21/18 Attend Phys: Johnnie Jeffrey Discharge: Date of : 46 Report #: [id number] THIS REPORT FOR: //name// [facility] ED Test Date: 2018-09-21 Test Time: 12:13:03 Pat Name: BING ALFONSO Department: Room: [facility] Gender: Process Designer: Gonzalo HENRIQUEZ : 1950 Requested By: Manpreet George Order Number: [id number] MD: Arturo Mo Measurements Intervals [place] Rate: 84 P: 15 VT: 176 QRS: -30 QRSD: 116 T: 101 QT: 425 QTc: 503 Interpretive Statements Sinus rhythm LVH with IVCD and secondary repol abnrm Prolonged QT interval Compared to ECG 08/20/2018 21:26:07 Intraventricular conduction delay now present Left ventricular hypertrophy now present Early repolarization now present Prolonged QT interval now present Left bundle-branch block no longer present Electronically Signed On 09-21-2018 15:01:28 ACCOUNTS PAYABLE ADMINISTRATOR by Arturo Mo [email or web address] <ELECTRONICALLY SIGNED> By: Arturo Mo MD, [facility] 09/21/18 1501 1213 1213 Arturo Mo MD, [facility] /EPI
[2018-09-21 18:39] VITALS: BP 134/76
[2018-09-21 19:00] VITALS: BP 113/63
[2018-09-21 20:00] VITALS: BP 101/64
[2018-09-22 01:10] VITALS: BP 115/63
[2018-09-22 04:00] VITALS: BP 113/64
[2018-09-22 04:34] LABS: HEMOGLOBIN 8.7 gm/dL (14.0-18.0); MCH 32.9 pg (26.0-34.0); MCHC 32.3 g/dL (28.0-37.0); MCV 101.8 fL (80.0-100.0); MPV 8.6 fl. (7.2-11.1); NUCLEATED RBCS 0 /100WBC; PLATELET COUNT* 197 thou/uL (150-400); RBC 2.65 mil/uL (4.50-6.00); RDW-CV 17.3 % (10.5-14.5); WBC 9.6 thou/uL (4.0-11.0)
[2018-09-22 05:16] LABS: ALBUMIN 2.4 g/dL (3.4-5.0); CALCIUM 9.5 mg/dL (8.5-10.1); CREATININE 7.7 mg/dL (0.6-1.3); POTASSIUM 4.4 mmol/L (3.5-5.1); TOTAL BILIRUBIN 0.2 mg/dL (<0.1-1.0); TOTAL PROTEIN 7.2 g/dL (6.4-8.2)
[2018-09-22 05:44] LABS: ABSOLUTE LYMPHOCYTES 0.2 thou/uL (0.8-5.3); ABSOLUTE MONOCYTES 0.2 thou/uL (0.0-1.2); ABSOLUTE NEUTROPHILS 9.2 thou/uL (1.6-8.1); ANISOCYTOSIS Occasional; PLATELET ESTIMATE ADEQUATE; TOXIC GRANULATION 1+
[2018-09-22 08:00] VITALS: BP 113/62
--- NOTE | 2018-09-22 17:36 | 2DMMODE ---
[place] [address] 2 D/M-MODE ECHOCARDIOGRAM Name: NATYJEFF WON Room: [facility] ADM IN [facility]#: [id number] Admission: 09/21/18 Attend Phys: Jeff Meneses Discharge: Date of : 46 Date of Service: 09/22/18 1735 Report #: [id number] THIS REPORT FOR: //name// APPROVED REPORT Study performed: 09/22/2018 15:00:22 EXAM: Comprehensive 2D, Doppler, and color-flow Echocardiogram Patient Location: In-Patient Room #: [facility] Status: routine BSA: 1.78 HR: 93 bpm BP: 113/64 mmHg Rhythm: NSR Other Information Study Quality: Good Indications Dyspnea 2D Dimensions IVSd: 13.66 (7-11mm) LVOT Diam: 22.93 (18-24mm) LVDd: 54.95 mm PWd: 14.63 (7-11mm) Ascending Ao: 34.96 (22-36mm) LVDs: 41.97 (25-40mm) Aortic Root: 33.17 mm Volumes Left Atrial Volume (Systole) LA ESV Index: 41.50 mL/m2 Aortic Valve AoV Peak Case.: 1.81 m/s AO Peak Gr.: 13.09 mmHg LVOT Max P.82 mmHg AO Mean Gr.: 7.26 mmHg LVOT Mean P.30 mmHg LVOT Max V: 0.84 m/s AO V2 VTI: 29.40 cm LVOT Mean V: 0.51 m/s BREONNA (VTI): 1.97 cm2 LVOT V1 VTI: 14.03 cm Mitral Valve E/A Ratio: 0.85 MV Decel. Time: 165.12 ms MV E Max Case.: 1.35 m/[place] [address] 2 D/M-MODE ECHOCARDIOGRAM Name: JEFF ALFONSO Room: [place] [address] ADM IN .R.#: [id number] Admission: 09/21/18 Attend Phys: Jeff Meneses Discharge: Date of : 46 Date of Service: 09/22/18 1735 Report #: [id number] MV PHT: 47.88 ms MVA (PHT): 4.59 cm2 TDI E/Lateral E': 15.00 E/Medial E': 19.29 Medial E' Case.: 0.07 m/s Lateral E' Case.: 0.09 m/s Pulmonary Valve PV Peak Case.: 0.97 m/s PV Peak Gr.: 3.80 mmHg Left Ventricle The left ventricle is normal size. There is moderately severe diffuse hypokinesis. Moderate concentric left ventricular hypertrophy. Left ventricular systolic function is moderately decreased. LVEF is 30-35%. The left ventricular diastolic function is normal. Right Ventricle The right ventricle is normal size. The right ventricular systolic function is normal. Atria Left atrium is mild to moderately dilated. The right atrium size is normal. Aortic Valve Mild aortic valve sclerosis. No aortic regurgitation is present. No hemodynamically significant valvular aortic stenosis. Mitral Valve The mitral valve is normal in structure. There is a mechanical mitral valve. Trace mitral regurgitation. No evidence of mitral valve stenosis. Tricuspid Valve The tricuspid valve is normal in structure. Trace tricuspid regurgitation. Pulmonic Valve The pulmonary valve is normal in structure. Mild pulmonic regurgitation. Great Vessels The aortic root is normal in size. IVC is normal in size and collapses >50% [place] [address] 2 D/M-MODE ECHOCARDIOGRAM Name: NATYJEFF WON Room: [address] IN [facility]#: [id number] Admission: 09/21/18 Attend Phys: Jeff Meneses Discharge: Date of : 46 Date of Service: 09/22/18 1735 Report #: [id number] Pericardium There is no pericardial effusion. <Conclusion> The left ventricle is normal size. Moderate concentric left ventricular hypertrophy. LVEF is 30-35%. The right ventricle is normal size. Left atrium is mild to moderately dilated. Mild aortic valve sclerosis. No aortic regurgitation is present The mitral valve is normal in structure. The tricuspid valve is normal in structure. IVC is normal in size and collapses >50% with inspiration. There is no pericardial effusion. There is moderately severe diffuse hypokinesis. There is a mechanical mitral valve. No hemodynamically significant valvular aortic stenosis. <ELECTRONICALLY SIGNED> By: Jean-Pierre Garcia MD, FACC 09/22/18 1735 1735 1735 eJan-Pierre Garcia MD, FACC /INF
[2018-09-22 20:33] VITALS: BP 91/59
[2018-09-23] VITALS: BP 127/64
[2018-09-23 04:08] VITALS: BP 121/71
[2018-09-23 08:00] VITALS: BP 117/76
[2018-09-23 12:00] VITALS: BP 131/80
[2018-09-23 16:00] VITALS: BP 110/66
[2018-09-23 20:20] VITALS: BP 131/71
[2018-09-24] VITALS: BP 123/71
[2018-09-24 04:00] VITALS: BP 143/79
[2018-09-24 08:00] VITALS: BP 157/85
[2018-09-24] MEDS ORDERED: PREDNISONE 10 M10 MG PO (09:15)
[2018-09-24] MEDS ORDERED: KEFLEX500 M1 PO (09:15)
[2018-09-24 20:35] VITALS: BP 115/63
[2018-09-25 04:27] VITALS: BP 121/59
[2018-09-25 08:00] VITALS: BP 136/75
--- NOTE | 2018-09-25 09:52 | CON ---
[address] [address] CONSULTATION Name: NATYJEFF SHAHDOCK Room: [place] [address] ADM IN M.R.#: [id number] Admission: 09/21/18 Attend Phys: Johnnie Jeffrey Discharge: Date of : 46 Report #: [id number] THIS REPORT FOR: //name// CC: Tanya Meneses DATE OF SERVICE: 09/22/2018 CONSULTING PHYSICIAN: Jeff Meneses DO. REASON FOR NEPHROLOGY CONSULTATION: End-stage renal disease for dialysis needs. REASON FOR ADMISSION: Shortness of breath after dialysis. HISTORY OF PRESENT ILLNESS: This is a 68-year-old male who has past medical history of end-stage renal disease. He is on hemodialysis every Tuesday, Tuesday, Tuesday, history of diabetes mellitus type 2, COPD on 2 liters of oxygen at home, coronary artery disease, congestive heart failure, MVR, came in with trouble breathing, which started while dialysis day before yesterday. Chest x-ray showed some congestion. He also has a history of COPD, so he is also being treated for possible COPD exacerbation. He is still a little bit short of breath and his had also noted that his abdomen has been more distended in the last couple of days. He was seen in dialysis this morning. ALLERGIES: PENICILLINS. REVIEW OF SYSTEMS: As mentioned above in history of present illness, otherwise 10-point review of systems done is negative. HOME MEDICATIONS: Include dicyclomine, hydrocodone, alprazolam, midodrine, insulin glargine, loperamide, ipratropium, prednisone, clonidine, folic acid, magnesium oxide, amiodarone, pantoprazole, docusate, budesonide, acetaminophen, atorvastatin, furosemide, insulin aspart. PAST MEDICAL AND PAST SURGICAL HISTORY: Right upper arm fistula, COPD, coronary artery disease with stent, hyperlipidemia, pneumonia, diabetes mellitus type 2, hypertension, mitral valve replacement, cardiomyopathy, hypertension and he is on dialysis Tuesday, Tuesday and Tuesday; previous tracheostomy. FAMILY HISTORY: No history of any kidney disease in the family. SOCIAL HISTORY: He is a former smoker. He lives at home with his . He does not use illicit drugs. He does drink about 6 ounces of Bacardi every day. PHYSICAL EXAMINATION: VITAL SIGNS: Blood pressure is 113/64, pulse is 90, temperature 36.3, [place] [address] CONSULTATION Name: JEFF ALFONSO Room: [address] IN [facility]#: [id number] Admission: 09/21/18 Attend Phys: Johnnie Jeffrey Discharge: Date of : 46 Report #: [id number] 3 liters of oxygen by nasal cannula and his pulse ox is 100%. GENERAL: He is seen on dialysis. He is awake, alert, oriented x 3. He has mild tachypnea. HEAD, EYES, EARS, NOSE AND THROAT: Mucous membranes are moist. NECK: There is no JVD. CHEST: Bilateral diminished breath sounds. No crackles or wheezing. CARDIOVASCULAR: S1 and S2 normal. No murmurs heard. ABDOMEN: Slightly distended, obese and bowel sounds are diminished. EXTREMITIES: There is no lower extremity edema, symmetrical lower extremities. NEUROLOGICAL: Gross neurological function is intact. PSYCHIATRIC: Mood and affect seem to be normal. LABORATORY DATA: Hemoglobin 8.7, platelet count is 197. Sodium 135, potassium is 4.4 and CO2 is 23 and other labs are reviewed. IMAGING: Chest x-ray was reviewed. ASSESSMENT: 1. End-stage renal disease, on hemodialysis every Tuesday, Tuesday, Tuesday. 2. Admitted with dyspnea, acute respiratory failure and chronic respiratory failure, chronic obstructive pulmonary disease exacerbation versus some pulmonary vascular congestion. 3. Anemia of chronic kidney disease. Hemoglobin 8.7. 4. Hypertension. 5. Diabetes type 2. PLAN: 1. The patient was seen on dialysis, we will try to remove more fluid today and see if it helps with his breathing, we will try to aim for 3.5 liters removal if he tolerates it. 2. We will stop his magnesium standing. We will check his magnesium level tomorrow. Magnesium level was normal today. 3. We will give him Epogen for anemia at 10,000 units. Thank you for this consultation. We will continue to follow along with you for dialysis needs. <ELECTRONICALLY SIGNED> By: Adela Molina MD 09/25/18 0952 0930 0235Abonilla Molina MD /nt
[2018-09-25 16:45] VITALS: BP 91/58
[2018-09-25 20:45] VITALS: BP 103/62
[2018-09-26 08:05] VITALS: BP 129/74
[2018-09-26 09:22] VITALS: BP 129/74
== END 2018-09-26 16:30 | disposition home or self-care (01) | DRG 291 ==
LOC: M.ERS 12:04 → M.2W 13:09 → M.TBA-ER 13:09 → M.2W 18:41 → M.3W 09-25 18:12
PROVIDERS: Family Medicine; ADMIT Internal Medicine
PROC: 5A1D70Z Performance of Urinary Filtration, Intermittent, Less than 6 Hours Per Day (ICD-10-PCS; principal; 2018-09-22)
PROC: 5A1D70Z Performance of Urinary Filtration, Intermittent, Less than 6 Hours Per Day (ICD-10-PCS; 2018-09-25)
DX: I13.2 Hypertensive heart and chronic kidney disease with heart failure and with stage 5 chronic kidney disease, or end stage renal disease (principal); J96.20 Acute and chronic respiratory failure, unspecified whether with hypoxia or hypercapnia; I50.23 Acute on chronic systolic (congestive) heart failure; N18.6 End stage renal disease; J44.1 Chronic obstructive pulmonary disease with (acute) exacerbation; I25.10 Atherosclerotic heart disease of native coronary artery without angina pectoris; E11.22 Type 2 diabetes mellitus with diabetic chronic kidney disease; E78.5 Hyperlipidemia, unspecified; D63.1 Anemia in chronic kidney disease; I34.0 Nonrheumatic mitral (valve) insufficiency; Z88.0 Allergy status to penicillin; Z79.4 Long term (current) use of insulin; Z95.5 Presence of coronary angioplasty implant and graft; Z79.899 Other long term (current) drug therapy; Z79.01 Long term (current) use of anticoagulants; Z83.3 Family history of diabetes mellitus; Z82.49 Family history of ischemic heart disease and other diseases of the circulatory system; Z87.891 Personal history of nicotine dependence

== ENCOUNTER 2018-10-17 13:27 | Inpatient (IN) | payer MEDICARE, BC ==
[~2018-10-17] VITALS: Ht 177.8 cm; Wt 70.8 kg
[~2018-10-17 13:27] MED LIST changes: +ATROVENT HFA14 GM INH; +BASAGLAR K100 UNIT/1 SUBQ; +KEFLEX500 M1 PO; +LOPERAMIDE 2 MG2 M1 PO; +PREDNISONE 10 M10 M1 PO
[2018-10-17 13:58] VITALS: BP 100/57
[2018-10-17] MEDS ORDERED: XANAX 0.25 MG0.25 MG PO (14:09)
[2018-10-17] MEDS ORDERED: REGLAN 10 MG TA10 MG PO (14:09)
[2018-10-17] MEDS ORDERED: NORCO 5-325 TA1 EACH PO (14:11)
[2018-10-17 14:14] LABS: HEMOGLOBIN 9.9 gm/dL (14.0-18.0); MCH 32.7 pg (26.0-34.0); MCHC 32.1 g/dL (28.0-37.0); MPV 8.5 fl. (7.2-11.1); NUCLEATED RBCS 0 /100WBC; PLATELET COUNT* 225 thou/uL (150-400); RBC 3.04 mil/uL (4.50-6.00); RDW-CV 17.5 % (10.5-14.5)
[2018-10-17 14:31] LABS: ALBUMIN 2.3 g/dL (3.4-5.0); ALKALINE PHOSPHATASE 163 U/L (46-116); ANION GAP 15 mmol/L (7-16); BUN 30 mg/dL (7-18); CALCIUM 9.3 mg/dL (8.5-10.1); CHLORIDE 93 mmol/L (98-107); CO2 26 mmol/L (21-32); GLUCOSE 376 mg/dL (70-99); MAGNESIUM 2.6 mg/dL (1.8-2.4); POTASSIUM 4.1 mmol/L (3.5-5.1); SGOT 13 U/L (15-37); SGPT 24 U/L (30-65); SODIUM 134 mmol/L (136-145); TOTAL BILIRUBIN 0.2 mg/dL (<0.1-1.0); TOTAL PROTEIN 6.9 g/dL (6.4-8.2); TROPONIN-I LEVEL <0.06 ng/mL (<0.06)
[2018-10-17 14:37] LABS: INR 10.3
[2018-10-17 15:14] LABS: ABSOLUTE LYMPHOCYTES 0.2 thou/uL (0.8-5.3); ABSOLUTE MONOCYTES 0.5 thou/uL (0.0-1.2); ABSOLUTE NEUTROPHILS 9.3 thou/uL (1.6-8.1); ANISOCYTOSIS 1+
[2018-10-17 15:15] LABS: MACROCYTES Occasional; PLATELET ESTIMATE ADEQUATE
[2018-10-17] MEDS ORDERED: LANTUS100 UNIT/M SUBQ (17:18)
[2018-10-17] MEDS ORDERED: NOVOLOG100 UNIT/1 SUBQ (17:18)
[2018-10-17 17:55] VITALS: BP 97/58
[2018-10-17 18:31] VITALS: BP 142/68
[2018-10-17 19:58] LABS: PROTIME 104.7 Seconds (9.20-11.50)
[2018-10-17 20:01] LABS: INR 10.4
[2018-10-17 21:30] VITALS: BP 107/62
[2018-10-18] VITALS: BP 83/47
[2018-10-18 04:00] VITALS: BP 116/66
[2018-10-18 05:35] LABS: PROTIME 35.5 Seconds (9.20-11.50)
[2018-10-18 05:46] LABS: INR 3.5
[2018-10-18 12:24] VITALS: BP 93/57
[2018-10-18 15:50] VITALS: BP 118/68
--- NOTE | 2018-10-18 15:55 | EKG ---
[place] [address] ELECTROCARDIOGRAM REPORT Name: NATYBING WON Room: [address] ADM IN M.R.#: [id number] Admission: 10/17/18 Attend Phys: Johnnie Jeffrey Discharge: Date of : 46 Report #: [id number] THIS REPORT FOR: //name// [facility] ED Test Date: 2018-10-17 Test Time: 13:57:52 Pat Name: BING ALFONSO Department: Room: [facility] Gender: M Electric Range Preparer: GAVIN : 1950 Requested By: Maribel Augustin Order Number: [id number] MD: Jean-Pierre Garcia Measurements Intervals [place] Rate: 69 P: 31 NV: 182 QRS: -28 QRSD: 135 T: 167 QT: 430 QTc: 461 Interpretive Statements Sinus rhythm LEFT VENTRICULAR HYPERTROPHY with IVCD Compared to ECG 09/21/2018 12:13 no significant change Electronically Signed On 10-18-2018 15:54:52 CDT by Jean-Pierre Garcia [email or web address] <ELECTRONICALLY SIGNED> By: Jean-Pierre Garcia MD, [facility] 10/18/18 1554 1357 1357 Jean-Pierre Garcia MD, FACC /EPI
[2018-10-18 16:10] LABS: PROTIME 15.7 Seconds (9.20-11.50)
[2018-10-18 16:14] LABS: INR 1.5
[2018-10-18 20:10] VITALS: BP 98/57
[2018-10-19] VITALS: BP 119/59
[2018-10-19 02:14] LABS: ABSOLUTE LYMPHOCYTES 0.7 thou/uL (0.8-5.3); ABSOLUTE MONOCYTES 0.6 thou/uL (0.0-1.2); ABSOLUTE NEUTROPHILS 5.7 thou/uL (1.6-8.1); BASOPHILS 0.6 %; EOSINOPHILS 0.6 %; HEMATOCRIT 29.6 % (42.0-52.0); HEMOGLOBIN 9.6 gm/dL (14.0-18.0); LYMPHOCYTES 9.7 %; MCH 32.9 pg (26.0-34.0); MCHC 32.5 g/dL (28.0-37.0); MCV 101.3 fL (80.0-100.0); MONOCYTES 8.8 %; MPV 8.1 fl. (7.2-11.1); NUCLEATED RBCS 0 /100WBC; PLATELET COUNT* 175 thou/uL (150-400); POLYS 80.3 %; RBC 2.92 mil/uL (4.50-6.00); RDW-CV 17.4 % (10.5-14.5); WBC 7.1 thou/uL (4.0-11.0)
[2018-10-19 02:30] LABS: CALCIUM 8.8 mg/dL (8.5-10.1); INR 1.3; POTASSIUM 3.7 mmol/L (3.5-5.1); PROTIME 12.9 Seconds (9.20-11.50); TOTAL BILIRUBIN 0.2 mg/dL (<0.1-1.0); TOTAL PROTEIN 5.9 g/dL (6.4-8.2)
[2018-10-19 02:31] LABS: APTT 71.7 Seconds (25.0-31.3); CREATININE 4.4 mg/dL (0.6-1.3)
[2018-10-19 04:00] VITALS: BP 103/49
[2018-10-19 08:00] VITALS: BP 109/73
--- NOTE | 2018-10-19 10:14 | CON ---
[address] [address] CONSULTATION Name: NATYJEFF Room: [address] IN M.R.#: [id number] Admission: 10/17/18 Attend Phys: Johnnie Jeffrey Discharge: Date of : 46 Report #: [id number] THIS REPORT FOR: //name// CC: Tanya Meneses DATE OF SERVICE: 10/18/2018 NEPHROLOGY CONSULTATION CONSULTING PHYSICIAN: Jeff Meneses DO REASON FOR CONSULTATION: End-stage kidney disease. HISTORY OF PRESENT ILLNESS: A 68-year-old gentleman who was admitted with an elevated INR here, found to be over 10. He was given a dose of vitamin K. Denies any signs or symptoms of bleeding, and his INR this morning was 3.5. He is seen on hemodialysis, is tolerating treatment well and has no complaints at present time. No chest pain or shortness of breath. No nausea, vomiting or diarrhea. REVIEW OF SYSTEMS: Constitutional, psych, heme, eyes, ENT, respiratory, cardiac, GI, , endocrine, all negative except as documented above. PAST MEDICAL HISTORY: End-stage kidney disease, COPD, coronary artery disease, history of mitral valve replacement, diabetes, hypertension. FAMILY HISTORY: Positive for diabetes. SOCIAL HISTORY: No current tobacco use. MEDICATIONS: Reviewed. PHYSICAL EXAMINATION: VITAL SIGNS: Blood pressure 116/66, pulse 62, temperature 36.5, respirations 18. GENERAL: In no acute distress. EYES: Open. EARS: Externally normal. CARDIOVASCULAR: Regular rate. LUNGS: Diminished breath sounds. ABDOMEN: Soft. MUSCULOSKELETAL: Nontender. PSYCHIATRIC: Awake, alert. LABORATORY DATA: White cell count 10, hemoglobin 9.9, platelets 225. Sodium [facility] [address] [place] [address] CONSULTATION Name: JEFF ALFONSO Room: [address] IN [facility].#: [id number] Admission: 10/17/18 Attend Phys: Johnnie Jeffrey Discharge: Date of : 46 Report #: [id number] 134, potassium 4.1, chloride 93, bicarbonate 26, BUN 30, creatinine 7, glucose 376, calcium 9.3, magnesium 2.6, albumin 2.3. INR 3.5. ASSESSMENT AND PLAN: 1. End-stage kidney disease, on hemodialysis Tuesday, Tuesday and Tuesday at the [facility]. 2. Hyponatremia. 3. Elevated INR of 10.4, did receive a dose of vitamin K with improvement in his INRs down to 3.5. 4. Diabetes, type 2. 5. Chronic obstructive pulmonary disease. 6. Coronary artery disease. 7. History of mitral valve replacement. PLAN: 1. Continue maintenance dialysis. He is tolerating dialysis well today. Ultrafilter as tolerated. He does have some chronic hypotension and is on midodrine. Blood pressure is stable at present. 2. Blood sugar control per internal medicine. 3. We will follow for dialysis needs. Next dialysis will be on Tuesday. If any questions in the interim, please call. Thank you for requesting my opinion in the care and management of this patient. <ELECTRONICALLY SIGNED> By: Leilani Rachel MD 10/19/18 1014 1056 [id number] Rachel MD /nt
[2018-10-19 12:26] VITALS: BP 104/63
[2018-10-19 16:10] VITALS: BP 124/62
[2018-10-19 20:00] VITALS: BP 115/65
[2018-10-20] VITALS: BP 105/52
[2018-10-20 04:00] VITALS: BP 132/75
[2018-10-20 05:04] LABS: HEMOGLOBIN 9.1 gm/dL (14.0-18.0); MCH 32.7 pg (26.0-34.0); MCHC 32.6 g/dL (28.0-37.0); MCV 100.5 fL (80.0-100.0); MPV 7.9 fl. (7.2-11.1); RBC 2.79 mil/uL (4.50-6.00); RDW-CV 17.7 % (10.5-14.5); WBC 8.3 thou/uL (4.0-11.0)
[2018-10-20 05:28] LABS: CALCIUM 9.2 mg/dL (8.5-10.1); POTASSIUM 4.2 mmol/L (3.5-5.1)
[2018-10-20 05:30] LABS: CREATININE 6.7 mg/dL (0.6-1.3); INR 1.2; PROTIME 11.8 Seconds (9.20-11.50)
[2018-10-20 08:10] VITALS: BP 123/72
[2018-10-20 16:00] VITALS: BP 122/71
[2018-10-20 19:40] VITALS: BP 111/61
[2018-10-21] VITALS: BP 107/54
[2018-10-21 04:00] VITALS: BP 121/69
[2018-10-21 04:49] LABS: HEMATOCRIT 26.7 % (42.0-52.0); HEMOGLOBIN 8.7 gm/dL (14.0-18.0); MCH 33.2 pg (26.0-34.0); MCHC 32.7 g/dL (28.0-37.0); MCV 101.3 fL (80.0-100.0); MPV 8.5 fl. (7.2-11.1); RBC 2.63 mil/uL (4.50-6.00); RDW-CV 17.8 % (10.5-14.5); WBC 7.7 thou/uL (4.0-11.0)
[2018-10-21 05:00] LABS: INR 1.2; PROTIME 11.8 Seconds (9.20-11.50)
[2018-10-21 05:07] LABS: CALCIUM 8.7 mg/dL (8.5-10.1); POTASSIUM 4.8 mmol/L (3.5-5.1)
[2018-10-21 05:08] LABS: CREATININE 4.4 mg/dL (0.6-1.3)
[2018-10-21 08:42] VITALS: BP 154/60
[2018-10-21 12:04] VITALS: BP 132/61
[2018-10-21 16:17] VITALS: BP 132/72
[2018-10-21 19:50] VITALS: BP 141/77
[2018-10-22] VITALS: BP 130/80
[2018-10-22 04:00] VITALS: BP 134/74
[2018-10-22 05:02] LABS: HEMATOCRIT 24.6 % (42.0-52.0); HEMOGLOBIN 8.1 gm/dL (14.0-18.0); MCH 33.2 pg (26.0-34.0); MCHC 33.1 g/dL (28.0-37.0); MCV 100.4 fL (80.0-100.0); MPV 8.1 fl. (7.2-11.1); RBC 2.45 mil/uL (4.50-6.00); RDW-CV 17.9 % (10.5-14.5); WBC 7.9 thou/uL (4.0-11.0)
[2018-10-22 05:16] LABS: INR 1.4; PROTIME 13.9 Seconds (9.20-11.50)
[2018-10-22 05:40] LABS: ALBUMIN 1.8 g/dL (3.4-5.0); CALCIUM 9.3 mg/dL (8.5-10.1); PHOSPHORUS* 0.7 mg/dL (2.5-4.9); POTASSIUM 5.1 mmol/L (3.5-5.1)
[2018-10-22 05:47] LABS: CREATININE 6.1 mg/dL (0.6-1.3)
[2018-10-22 08:22] VITALS: BP 125/50
[2018-10-22 11:47] VITALS: BP 134/76
[2018-10-22 15:24] VITALS: BP 114/65
[2018-10-22 19:40] VITALS: BP 141/85
[2018-10-23] VITALS: BP 144/84
[2018-10-23 04:00] VITALS: BP 152/84
[2018-10-23 07:44] LABS: APTT 55.3 Seconds (25.0-31.3); INR 2.2; PROTIME 22.4 Seconds (9.20-11.50)
[2018-10-23 08:11] VITALS: BP 156/85
[2018-10-23 12:33] VITALS: BP 149/85
[2018-10-23 13:09] LABS: CREATININE 8.4 mg/dL (0.6-1.3)
[2018-10-23 13:13] LABS: POTASSIUM 6.4 mmol/L (3.5-5.1)
[2018-10-23 14:16] LABS: HEMATOCRIT 30.6 % (42.0-52.0); HEMOGLOBIN 9.5 gm/dL (14.0-18.0); MCH 32.3 pg (26.0-34.0); MCV 104.3 fL (80.0-100.0); MPV 8.4 fl. (7.2-11.1); NUCLEATED RBCS 0 /100WBC; RBC 2.93 mil/uL (4.50-6.00); RDW-CV 18.3 % (10.5-14.5)
[2018-10-23 14:18] LABS: PLATELET COUNT* 245 thou/uL (150-400)
[2018-10-23 15:38] LABS: BE -10.3 mmol/L (-2 to +3); PCO2 46.6 mmHg (35.0-45.0); PO2 113.6 mmHg (75.0-100.0)
[2018-10-23 15:41] LABS: pH 7.193 (7.340-7.450)
[2018-10-23 15:48] LABS: ALKALINE PHOSPHATASE 123 U/L (46-116); ANION GAP 12 mmol/L (7-16); BUN 45 mg/dL (7-18); CALCIUM 10.4 mg/dL (8.5-10.1); CHLORIDE 97 mmol/L (98-107); CO2 22 mmol/L (21-32); GLUCOSE 326 mg/dL (70-99); MAGNESIUM 1.7 mg/dL (1.8-2.4); POTASSIUM 6.4 mmol/L (3.5-5.1); SGOT 33 U/L (15-37); SGPT 31 U/L (30-65); SODIUM 131 mmol/L (136-145); TOTAL BILIRUBIN 0.3 mg/dL (<0.1-1.0); TOTAL PROTEIN 6.6 g/dL (6.4-8.2); TROPONIN-I LEVEL <0.06 ng/mL (<0.06)
[2018-10-23 16:06] LABS: ABSOLUTE EOSINOPHILS 0.3 thou/uL (0.0-0.7); ABSOLUTE LYMPHOCYTES 1.9 thou/uL (0.8-5.3); ABSOLUTE MONOCYTES 1.9 thou/uL (0.0-1.2); ABSOLUTE NEUTROPHILS 12.9 thou/uL (1.6-8.1)
[2018-10-23 16:07] LABS: ANISOCYTOSIS 1+; MACROCYTES Occasional; PLATELET ESTIMATE ADEQUATE
[2018-10-23 16:08] LABS: MICROCYTES Occasional
--- NOTE | 2018-10-23 16:55 | EKG ---
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: : 1950 Requested By: Jeff Meneses Order Number: [id number] Jazmin MD: Christian Parada Measurements Intervals [place] Rate: 114 P: 261 [place]: 131 QRS: -46 QRSD: 174 T: 112 QT: 381 QTc: 525 Interpretive Statements Wide-complex tachycardia Compared to ECG 10/17/2018 13:57:52 Left bundle-branch block now present Sinus rhythm no longer present Electronically Signed On 10-23-2018 16:54:55 CDT by Christian Parada [email or web address] <ELECTRONICALLY SIGNED> By: Christian Parada MD, [facility] 10/23/18 7341 1357 1357 Christian Parada MD, [facility] /EPI
[2018-10-23 20:00] VITALS: BP 108/59
[2018-10-23 22:00] VITALS: BP 105/52
[2018-10-24] VITALS (19 sets, daily range): BP systolic 96–141; BP diastolic 56–81
[2018-10-24 04:48] LABS: ABSOLUTE BASOPHILS 0.1 thou/uL (0.0-0.2); ABSOLUTE LYMPHOCYTES 0.5 thou/uL (0.8-5.3); ABSOLUTE MONOCYTES 1.1 thou/uL (0.0-1.2); ABSOLUTE NEUTROPHILS 10.2 thou/uL (1.6-8.1); BASOPHILS 0.4 %; EOSINOPHILS 0.1 %; HEMATOCRIT 25.2 % (42.0-52.0); HEMOGLOBIN 8.3 gm/dL (14.0-18.0); LYMPHOCYTES 4.4 %; MCH 32.7 pg (26.0-34.0); MCHC 32.8 g/dL (28.0-37.0); MCV 99.8 fL (80.0-100.0); MONOCYTES 9.3 %; MPV 8.2 fl. (7.2-11.1); NUCLEATED RBCS 0 /100WBC; POLYS 85.8 %; RBC 2.53 mil/uL (4.50-6.00); RDW-CV 17.9 % (10.5-14.5); WBC 11.9 thou/uL (4.0-11.0)
[2018-10-24 05:05] LABS: INR 2.4; PROTIME 24.5 Seconds (9.20-11.50)
[2018-10-24 05:10] LABS: PLATELET COUNT* 167 thou/uL (150-400)
[2018-10-24 05:58] LABS: MAGNESIUM 2.3 mg/dL (1.8-2.4); PHOSPHORUS* 2.1 mg/dL (2.5-4.9); POTASSIUM 5.8 mmol/L (3.5-5.1)
[2018-10-24 06:06] LABS: CREATININE 4.4 mg/dL (0.6-1.3)
[2018-10-25] VITALS (46 sets, daily range): BP systolic 112–148; BP diastolic 54–96
[2018-10-25 05:02] LABS: INR 2.5; PROTIME 25.5 Seconds (9.20-11.50)
[2018-10-25 05:15] LABS: ALBUMIN 1.9 g/dL (3.4-5.0); ANION GAP 8 mmol/L (7-16); BUN 17 mg/dL (7-18); CALCIUM 8.8 mg/dL (8.5-10.1); CHLORIDE 97 mmol/L (98-107); CHOLESTEROL 188 mg/dL (<200); CO2 30 mmol/L (21-32); CREATININE 3.9 mg/dL (0.6-1.3); GLUCOSE 130 mg/dL (70-99); HDL CHOLESTEROL 97 mg/dL (>40); LDL CHOLESTEROL 79 mg/dL (<100); PHOSPHORUS* 2.5 mg/dL (2.5-4.9); SODIUM 135 mmol/L (136-145); TC:HDL 1.9 Ratio (Not establshd); TRIGLYCERIDE 62 mg/dL (<150); VLDL 12 mg/dL (<40)
[2018-10-25 05:31] LABS: POTASSIUM 4.6 mmol/L (3.5-5.1)
[2018-10-25 06:40] LABS: SERUM ASSESSMENT Clear
[2018-10-26 00:01] VITALS: BP 140/87
[2018-10-26 04:33] LABS: INR 1.9; PROTIME 19.7 Seconds (9.20-11.50)
[2018-10-26 07:58] LABS: HEMATOCRIT 25.2 % (42.0-52.0); HEMOGLOBIN 8.1 gm/dL (14.0-18.0); MCH 32.5 pg (26.0-34.0); MCHC 32.1 g/dL (28.0-37.0); MCV 101.1 fL (80.0-100.0); NUCLEATED RBCS 0 /100WBC; PLATELET COUNT* 190 thou/uL (150-400); RBC 2.49 mil/uL (4.50-6.00); RDW-CV 18.3 % (10.5-14.5); WBC 6.1 thou/uL (4.0-11.0)
[2018-10-26 08:06] LABS: ALBUMIN 2.1 g/dL (3.4-5.0); CALCIUM 9.1 mg/dL (8.5-10.1); CREATININE 3.4 mg/dL (0.6-1.3); POTASSIUM 4.4 mmol/L (3.5-5.1); TOTAL BILIRUBIN 0.1 mg/dL (<0.1-1.0); TOTAL PROTEIN 5.5 g/dL (6.4-8.2)
[2018-10-26 08:12] VITALS: BP 144/75
[2018-10-26 08:36] LABS: ABSOLUTE LYMPHOCYTES 0.5 thou/uL (0.8-5.3); ABSOLUTE MONOCYTES 1.6 thou/uL (0.0-1.2); ANISOCYTOSIS 1+; ATYPICAL LYMPHS 2 %; METAMYELOCYTES 4 %; MYELOCYTES 1 %; PLATELET ESTIMATE ADEQUATE
[2018-10-26 11:46] VITALS: BP 138/67
[2018-10-26 15:53] VITALS: BP 145/65
[2018-10-27] VITALS (7 sets, daily range): BP systolic 102–150; BP diastolic 68–76
[2018-10-27 05:03] LABS: INR 2.1; PROTIME 21.5 Seconds (9.20-11.50)
[2018-10-27 07:58] LABS: HEMATOCRIT 24.7 % (42.0-52.0); HEMOGLOBIN 7.9 gm/dL (14.0-18.0); MCH 32.7 pg (26.0-34.0); MPV 8.6 fl. (7.2-11.1); NUCLEATED RBCS 0 /100WBC; PLATELET COUNT* 202 thou/uL (150-400); RBC 2.42 mil/uL (4.50-6.00); RDW-CV 18.4 % (10.5-14.5); WBC 6.2 thou/uL (4.0-11.0)
[2018-10-27 08:00] LABS: ALBUMIN 2.2 g/dL (3.4-5.0); CALCIUM 8.9 mg/dL (8.5-10.1); POTASSIUM 4.9 mmol/L (3.5-5.1); TOTAL BILIRUBIN 0.2 mg/dL (<0.1-1.0); TOTAL PROTEIN 5.6 g/dL (6.4-8.2)
[2018-10-27 08:02] LABS: CREATININE 5.8 mg/dL (0.6-1.3)
[2018-10-27 08:32] LABS: ABSOLUTE BASOPHILS 0.1 thou/uL (0.0-0.2); ABSOLUTE EOSINOPHILS 0.1 thou/uL (0.0-0.7); ABSOLUTE LYMPHOCYTES 0.6 thou/uL (0.8-5.3); ABSOLUTE MONOCYTES 0.9 thou/uL (0.0-1.2); ABSOLUTE NEUTROPHILS 4.5 thou/uL (1.6-8.1); PLATELET ESTIMATE ADEQUATE
[2018-10-27 08:33] LABS: ANISOCYTOSIS 1+; POIKILOCYTOSIS 1+
[2018-10-27] MEDS ORDERED: ONDANSETRON HCL4 M2 PO (14:04)
[2018-10-27] MEDS ORDERED: COUMADIN 5 MG TA5 M1 PO (14:09)
[2018-10-27] MEDS ORDERED: NOVOLOG100 UNIT/1 PO (14:17)
[2018-10-27] MEDS ORDERED: MELATONIN5 M1 PO (14:21)
[2018-10-27] MEDS ORDERED: NEPHROCAPS SOFT1 CAP PO (14:24)
[2018-10-27] MEDS ORDERED: ORAL ANALGESIC9 GM TOP (14:29)
[2018-10-27] MEDS ORDERED: SENOKOT-S TABL1 EACH PO (14:31)
[2018-10-28] VITALS: BP 130/57
[2018-10-28 04:00] VITALS: BP 140/71
[2018-10-28 05:26] LABS: INR 2.3; PROTIME 23.4 Seconds (9.20-11.50)
[2018-10-28 08:00] VITALS: BP 122/74
[2018-10-28 11:09] LABS: ALBUMIN 2.2 g/dL (3.4-5.0); POTASSIUM 5.3 mmol/L (3.5-5.1); TOTAL BILIRUBIN 0.2 mg/dL (<0.1-1.0)
[2018-10-28 11:10] LABS: CREATININE 3.8 mg/dL (0.6-1.3)
[2018-10-28 11:58] LABS: ABSOLUTE BASOPHILS 0.1 thou/uL (0.0-0.2); ABSOLUTE EOSINOPHILS 0.1 thou/uL (0.0-0.7); ABSOLUTE LYMPHOCYTES 0.7 thou/uL (0.8-5.3); ABSOLUTE MONOCYTES 1.1 thou/uL (0.0-1.2); ABSOLUTE NEUTROPHILS 5.6 thou/uL (1.6-8.1); BASOPHILS 1.4 %; EOSINOPHILS 0.9 %; HEMATOCRIT 27.8 % (42.0-52.0); LYMPHOCYTES 9.7 %; MCH 32.6 pg (26.0-34.0); MCHC 32.4 g/dL (28.0-37.0); MCV 100.7 fL (80.0-100.0); MONOCYTES 14.6 %; MPV 8.2 fl. (7.2-11.1); NUCLEATED RBCS 0 /100WBC; PLATELET COUNT* 234 thou/uL (150-400); POLYS 73.4 %; RBC 2.76 mil/uL (4.50-6.00); RDW-CV 17.5 % (10.5-14.5); WBC 7.7 thou/uL (4.0-11.0)
[2018-10-28 15:21] VITALS: BP 153/85
[2018-10-28 20:00] VITALS: BP 139/67
[2018-10-29] VITALS: BP 167/79
[2018-10-29 04:00] VITALS: BP 168/84
[2018-10-29 05:18] LABS: INR 3.2; PROTIME 32.1 Seconds (9.20-11.50)
[2018-10-29 08:00] VITALS: BP 117/62
[2018-10-29 11:26] VITALS: BP 112/78
[2018-10-29 16:29] VITALS: BP 166/88
[2018-10-29 20:00] VITALS: BP 141/58
[2018-10-30] VITALS: BP 130/72
[2018-10-30 03:50] VITALS: BP 155/85
[2018-10-30 08:50] VITALS: BP 166/77
[2018-10-30 09:18] LABS: INR 3.4
[2018-10-30] MEDS ORDERED: ANECREAM530 GM TOP (13:51)
[2018-10-30] MEDS ORDERED: BENADRYL25 MG PO (13:52)
[2018-10-30 16:00] VITALS: BP 105/65
== END 2018-10-30 18:30 | DRG 177 ==
LOC: M.ERS 13:27 → M.2W 15:43 → M.TBA-ER 15:43 → M.2W 18:02 → M.ICU 10-23 14:30 → M.2W 10-26 21:13
PROVIDERS: Family Medicine; Internal Medicine; Internal Medicine Nephrology; Personal Emergency Response Attendant; Registered Nurse; ADMIT Internal Medicine
PROC: 5A1D70Z Performance of Urinary Filtration, Intermittent, Less than 6 Hours Per Day (ICD-10-PCS; principal; 2018-10-18)
PROC: 5A1D70Z Performance of Urinary Filtration, Intermittent, Less than 6 Hours Per Day (ICD-10-PCS; 2018-10-20)
PROC: 5A09357 Assistance with Respiratory Ventilation, Less than 24 Consecutive Hours, Continuous Positive Airway Pressure (ICD-10-PCS; 2018-10-23)
PROC: 5A2204Z Restoration of Cardiac Rhythm, Single (ICD-10-PCS; 2018-10-23)
PROC: 5A09357 Assistance with Respiratory Ventilation, Less than 24 Consecutive Hours, Continuous Positive Airway Pressure (ICD-10-PCS; 2018-10-24)
PROC: 5A1D70Z Performance of Urinary Filtration, Intermittent, Less than 6 Hours Per Day (ICD-10-PCS; 2018-10-24)
PROC: 5A1D70Z Performance of Urinary Filtration, Intermittent, Less than 6 Hours Per Day (ICD-10-PCS; 2018-10-27)
PROC: 5A1D70Z Performance of Urinary Filtration, Intermittent, Less than 6 Hours Per Day (ICD-10-PCS; 2018-10-30)
DX: J15.6 Pneumonia due to other Gram-negative bacteria (principal); N18.6 End stage renal disease; I50.23 Acute on chronic systolic (congestive) heart failure; I13.2 Hypertensive heart and chronic kidney disease with heart failure and with stage 5 chronic kidney disease, or end stage renal disease; I42.9 Cardiomyopathy, unspecified; D68.59 Other primary thrombophilia; E87.1 Hypo-osmolality and hyponatremia; I47.2 Ventricular tachycardia; J44.0 Chronic obstructive pulmonary disease with (acute) lower respiratory infection; J69.0 Pneumonitis due to inhalation of food and vomit; E11.65 Type 2 diabetes mellitus with hyperglycemia; Y95 Nosocomial condition; D53.9 Nutritional anemia, unspecified; J15.9 Unspecified bacterial pneumonia; E87.5 Hyperkalemia; E78.5 Hyperlipidemia, unspecified; I95.89 Other hypotension; I44.7 Left bundle-branch block, unspecified; I25.10 Atherosclerotic heart disease of native coronary artery without angina pectoris; E11.22 Type 2 diabetes mellitus with diabetic chronic kidney disease; Z95.5 Presence of coronary angioplasty implant and graft; Z95.2 Presence of prosthetic heart valve; Z99.2 Dependence on renal dialysis; Z87.891 Personal history of nicotine dependence; Z79.01 Long term (current) use of anticoagulants; Z79.4 Long term (current) use of insulin; Z79.899 Other long term (current) drug therapy; Z88.0 Allergy status to penicillin; Z83.3 Family history of diabetes mellitus; Z82.49 Family history of ischemic heart disease and other diseases of the circulatory system

== ENCOUNTER → 2018-11-16 | Outpatient (CLI) | payer MEDICARE, BC ==
[~2018-11-16] MED LIST changes: +ANECREAM530 GM TOP; +MELATONIN5 M1 PO; +NOVOLOG100 UNIT/1 PO; +ONDANSETRON HCL4 M2 PO; +ORAL ANALGESIC9 GM TOP; +SENOKOT-S TABL1 EACH PO
== END ==
LOC: M.CT 11:00
DX: I71.2 Thoracic aortic aneurysm, without rupture (principal); J43.2 Centrilobular emphysema; K76.89 Other specified diseases of liver; J90 Pleural effusion, not elsewhere classified; I25.10 Atherosclerotic heart disease of native coronary artery without angina pectoris; N28.1 Cyst of kidney, acquired; R91.1 Solitary pulmonary nodule

== ENCOUNTER → 2018-11-21 | Outpatient (CLI) | payer MEDICARE, BC | LOC: M.RAD 10:41 | DX: I13.2 Hypertensive heart and chronic kidney disease with heart failure and with stage 5 chronic kidney disease, or end stage renal disease (principal); E11.22 Type 2 diabetes mellitus with diabetic chronic kidney disease; I50.22 Chronic systolic (congestive) heart failure; N18.6 End stage renal disease; I25.5 Ischemic cardiomyopathy; J44.9 Chronic obstructive pulmonary disease, unspecified; E78.00 Pure hypercholesterolemia, unspecified; E11.9 Type 2 diabetes mellitus without complications; I25.10 Atherosclerotic heart disease of native coronary artery without angina pectoris; Z79.01 Long term (current) use of anticoagulants ==

== ENCOUNTER 2019-05-09 10:04 | Observation (INO) | payer MEDICARE, BC ==
[~2019-05-09] VITALS: Ht 177.8 cm; Wt 79.4 kg
[2019-05-09 10:05] VITALS: BP 106/62
[2019-05-09 11:04] LABS: ABSOLUTE BASOPHILS 0.1 thou/uL (0.0-0.2); ABSOLUTE EOSINOPHILS 0.1 thou/uL (0.0-0.7); ABSOLUTE LYMPHOCYTES 0.7 thou/uL (0.8-5.3); ABSOLUTE MONOCYTES 0.8 thou/uL (0.0-1.2); ABSOLUTE NEUTROPHILS 5.8 thou/uL (1.6-8.1); BASOPHILS 1.1 %; EOSINOPHILS 1.8 %; HEMATOCRIT 39.1 % (42.0-52.0); HEMOGLOBIN 12.5 gm/dL (14.0-18.0); LYMPHOCYTES 9.4 %; MCV 93.9 fL (80.0-100.0); MONOCYTES 10.3 %; MPV 8.4 fl. (7.2-11.1); NUCLEATED RBCS 0 /100WBC; PLATELET COUNT* 288 thou/uL (150-400); POLYS 77.4 %; RBC 4.17 mil/uL (4.50-6.00); RDW-CV 20.2 % (10.5-14.5); WBC 7.5 thou/uL (4.0-11.0)
[2019-05-09 11:19] LABS: APTT 53.7 Seconds (25.0-31.3); INR 1.9; PROTIME 19.5 Seconds (9.20-11.50)
[2019-05-09 11:22] LABS: CALCIUM 10.1 mg/dL (8.5-10.1); CREATININE 3.4 mg/dL (0.6-1.3); POTASSIUM 3.8 mmol/L (3.5-5.1)
[2019-05-09 11:26] LABS: ALBUMIN 3.1 g/dL (3.4-5.0); TOTAL BILIRUBIN 0.4 mg/dL (<0.1-1.0); TOTAL PROTEIN 9.7 g/dL (6.4-8.2)
[2019-05-09 11:36] LABS: ANISOCYTOSIS 2+; PLATELET ESTIMATE ADEQUATE; POLYCHROMASIA 1+
--- NOTE | 2019-05-09 15:13 | EKG ---
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 : 1950 Requested By: Manpreet George Order Number: [id number] MD: Jean-Pierre Garcia Measurements Intervals [place] Rate: 78 P: -4 [place]: 169 QRS: -30 QRSD: 133 T: 95 QT: 470 QTc: 536 Interpretive Statements Sinus rhythm Left bundle branch block Compared to ECG 10/23/2018 13:57:59 heart rate has decreased intraventricular conduction delay has diminished Electronically Signed On 05-09-2019 15:13:10 CDT by Jean-Pierre Garcia [email or web address] <ELECTRONICALLY SIGNED> By: Jean-Pierre Garcia MD, [facility] 05/09/19 1513 1015 1015 Jean-Pierre Garcia MD, [facility] /EPI
[2019-05-09 17:08] VITALS: BP 103/67
[2019-05-09 17:30] VITALS: BP 122/76
[2019-05-09 20:00] VITALS: BP 97/55
[2019-05-10] VITALS: BP 113/65
[2019-05-10 04:00] VITALS: BP 102/72; BP 109/72; BP 111/73
[2019-05-10 04:02] VITALS: BP 109/72
[2019-05-10 04:04] VITALS: BP 102/72
[2019-05-10 05:19] LABS: HEMATOCRIT 36.5 % (42.0-52.0); HEMOGLOBIN 11.3 gm/dL (14.0-18.0); MCH 28.9 pg (26.0-34.0); MCHC 31.1 g/dL (28.0-37.0); MCV 92.8 fL (80.0-100.0); RBC 3.93 mil/uL (4.50-6.00); RDW-CV 20.1 % (10.5-14.5); WBC 8.7 thou/uL (4.0-11.0)
[2019-05-10 05:29] LABS: INR 1.9; PROTIME 18.7 Seconds (9.20-11.50)
[2019-05-10 05:36] LABS: CALCIUM 10.1 mg/dL (8.5-10.1); MAGNESIUM 2.5 mg/dL (1.8-2.4); POTASSIUM 4.6 mmol/L (3.5-5.1)
[2019-05-10 05:37] LABS: CREATININE 5.3 mg/dL (0.6-1.3)
[2019-05-10 08:00] VITALS: BP 102/64
[2019-05-10 12:48] VITALS: BP 102/64
== END 2019-05-10 14:06 | disposition home or self-care (01) ==
LOC: M.ERS 10:04 → M.TBA-ER 11:20 → M.2W 17:14
PROVIDERS: Family Medicine; ADMIT Internal Medicine
DX: E87.8 Other disorders of electrolyte and fluid balance, not elsewhere classified (principal); E86.9 Volume depletion, unspecified; I95.9 Hypotension, unspecified; E11.22 Type 2 diabetes mellitus with diabetic chronic kidney disease; N18.6 End stage renal disease; I50.22 Chronic systolic (congestive) heart failure; J44.9 Chronic obstructive pulmonary disease, unspecified; I25.10 Atherosclerotic heart disease of native coronary artery without angina pectoris; E11.43 Type 2 diabetes mellitus with diabetic autonomic (poly)neuropathy; K31.84 Gastroparesis; E11.40 Type 2 diabetes mellitus with diabetic neuropathy, unspecified; E44.1 Mild protein-calorie malnutrition; E78.00 Pure hypercholesterolemia, unspecified; Z79.899 Other long term (current) drug therapy; Z79.01 Long term (current) use of anticoagulants; Z99.2 Dependence on renal dialysis; Z79.4 Long term (current) use of insulin; Z99.81 Dependence on supplemental oxygen

== ENCOUNTER → 2019-07-27 | Outpatient (CLI) | payer MEDICARE ==
[~2019-07-27] VITALS: Ht 177.8 cm; Wt 71.1 kg
[2019-07-27 11:28] LABS: HEMATOCRIT 45.9 % (42.0-52.0); HEMOGLOBIN 14.8 gm/dL (14.0-18.0); MCH 30.3 pg (26.0-34.0); MCHC 32.2 g/dL (28.0-37.0); MPV 8.6 fl. (7.2-11.1); RBC 4.88 mil/uL (4.50-6.00); RDW-CV 21.7 % (10.5-14.5); WBC 4.9 thou/uL (4.0-11.0)
[2019-07-27 11:37] LABS: CALCIUM 9.6 mg/dL (8.5-10.1); CREATININE 4.8 mg/dL (0.6-1.3); POTASSIUM 4.3 mmol/L (3.5-5.1)
[2019-07-27 11:40] VITALS: BP 113/80
[2019-07-27 11:41] LABS: APTT 44.6 Seconds (25.0-31.3); INR 2.3; PROTIME 22.6 Seconds (9.20-11.50)
[2019-07-27 11:42] LABS: ALBUMIN 3.3 g/dL (3.4-5.0); TOTAL BILIRUBIN 0.5 mg/dL (<0.1-1.0); TOTAL PROTEIN 9.5 g/dL (6.4-8.2)
[2019-07-27 12:52] VITALS: BP 121/74
--- NOTE | 2019-07-28 08:01 | OP ---
[address] [address] OPERATIVE REPORT Name: BING ALFONSO [id number] Admission: 07/27/19 Attend Phys: Zach Bocanegra MD Discharge: Date of : 46 Report #: [id number] THIS REPORT FOR: //name// CC: Leilani Bocanegra DATE OF SERVICE: 07/27/2019 PREOPERATIVE DIAGNOSES: 1. End-stage renal disease. 2. Poor flow rates right arm arteriovenous fistula. POSTOPERATIVE DIAGNOSES: 1. End-stage renal disease. 2. Poor flow rates right arm arteriovenous fistula. PROCEDURE: 1. Fistulogram, right upper extremity. 2. Drug-coated balloon angioplasty of central venous stenosis. 3. Plain old balloon angioplasty of arterial inflow stenosis. SURGEON: Zach Bocanegra M.D. HVAC SERVICE MANAGER: Horace Lerner. COMPLICATIONS: None. ESTIMATED BLOOD LOSS: Minimal. ANESTHESIA: Local sedation. COMPLICATIONS: None. INDICATIONS FOR PROCEDURE: The patient is a very pleasant 69-year-old -Ivorian male with end-stage renal disease, on dialysis. He has a right upper extremity brachiocephalic AV fistula versus brachiobasilic transposed AV fistula. It is difficult to tell. He has had difficulty with his flow volumes recently. I have been asked to perform fistulogram. Informed consent was obtained from the patient with risks including but not limited to bleeding, infection, need for further surgery, pain, , heart attack, stroke, steal syndrome. The patient understood these risks and was agreeable to proceed. DESCRIPTION OF PROCEDURE: The patient was taken to the angio suite, placed in supine position. After adequate sedation was initiated, timeout was performed. The patient's right arm was prepped and [place] [address] OPERATIVE REPORT Name: BING ALFONSO Room: [facility]#: [id number] Admission: 07/27/19 Attend Phys: Zach Bocanegra MD Discharge: Date of : 46 Report #: [id number] accessed the fistula in antegrade fashion in the access zone. I used Seldinger technique to exchange out for a 7-Hungarian sheath. I performed fistulogram with the following findings. FINDINGS: 1. Access zone and the venous outflow of the fistula widely patent. 2. Tight stenosis, approximately 80%, of the central venous system at the confluence of the subclavian and internal jugular veins. 3. Long segment 3 cm stenosis of the arterial limb of the fistula. 4. After intervention, there is widely patent flow through the stomach areas. I used a wire and catheter across the stenosis and central veins without difficulty. I ballooned them with 8-mm balloon. There was still quite a bit of residual stenosis. I prepped a Lutonix drug-coated balloon according to director of sustainable design's instructions. I placed it over the lesion and deployed it for the recommended treatment length of time. Completion imaging showed much improved blood flow through this area. The balloon was a 10 mm x 60 E-Luminexx drug-coated balloon. I then reversed my sheath and passed a wire across the stenosis on the arterial limb. I ballooned this area with a 6 and then an 8 mm balloon. Completion imaging showed excellent result with much improved blood flow through this area and no residual stenosis. The patient tolerated the procedure well. He had a much improved thrill within the fistula within the completion of the procedure. He was taken alert and awake to recovery room in good condition. All needle and instrument counts were correct at the end of the case. Okay to use the fistula for dialysis. <ELECTRONICALLY SIGNED> By: Tristin Priest DO 07/28/19 0801 1239 1301Rzakiya Bocanegra MD /nt
== END | disposition home or self-care (01) ==
LOC: M.INT 09:57
PROVIDERS: Surgery Vascular Surgery
DX: T82.590A Other mechanical complication of surgically created arteriovenous fistula, initial encounter (principal); E11.22 Type 2 diabetes mellitus with diabetic chronic kidney disease; N18.6 End stage renal disease; I25.10 Atherosclerotic heart disease of native coronary artery without angina pectoris; I25.2 Old myocardial infarction; I42.9 Cardiomyopathy, unspecified; E78.00 Pure hypercholesterolemia, unspecified; I50.22 Chronic systolic (congestive) heart failure; J44.9 Chronic obstructive pulmonary disease, unspecified; Z98.890 Other specified postprocedural states; Z79.899 Other long term (current) drug therapy; Z87.01 Personal history of pneumonia (recurrent); Z79.01 Long term (current) use of anticoagulants; Z95.2 Presence of prosthetic heart valve; Z99.2 Dependence on renal dialysis; Y83.8 Other surgical procedures as the cause of abnormal reaction of the patient, or of later complication, without mention of misadventure at the time of the procedure

== ENCOUNTER → 2019-08-09 | Outpatient (CLI) | payer MEDICARE | LOC: M.RAD 10:10 | DX: J84.10 Pulmonary fibrosis, unspecified (principal); I48.91 Unspecified atrial fibrillation ==

== ENCOUNTER → 2019-08-28 | Outpatient (CLI) | payer MEDICARE ==
--- NOTE | 2019-08-28 17:46 | 2DMMODE ---
[place] [address] 2 D/M-MODE ECHOCARDIOGRAM Name: BING ALFONSO Room: [facility]#: [id number] Admission: 08/28/19 Attend Phys: Eugenio Alexandra MD Discharge: Date of : 46 Date of Service: 08/28/19 1745 Report #: [id number] THIS REPORT FOR: cc: Tanya Kramer Maggie M. DO Liston, Michael J. MD [facility] ~ APPROVED REPORT Study performed: 08/28/2019 09:11:29 EXAM: Comprehensive 2D, Doppler, and color-flow Echocardiogram Patient Location: Out-Patient BSA: 1.88 HR: 85 bpm BP: 110/60 mmHg Other Information Study Quality: Good Indications Mitral Valve Disease 2D Dimensions IVSd: 12.53 (7-11mm) LVOT Diam: 20.58 (18-24mm) LVDd: 59.03 mm PWd: 12.32 (7-11mm) Ascending Ao: 31.76 (22-36mm) LVDs: 47.53 (25-40mm) Aortic Root: 26.66 mm Volumes Left Atrial Volume (Systole) LA ESV Index: 29.40 mL/m2 Aortic Valve AoV Peak Case.: 1.25 m/s AO Peak Gr.: 6.22 mmHg LVOT Max P.14 mmHg AO Mean Gr.: 3.77 mmHg LVOT Mean P.98 mmHg LVOT Max V: 0.73 m/s AO V2 VTI: 18.43 cm LVOT Mean V: 0.45 m/s BREONNA (VTI): 1.93 cm2 LVOT V1 VTI: 10.67 cm Mitral Valve MV Peak Gr.: 5.79 [place] [address] 2 D/M-MODE ECHOCARDIOGRAM Name: BING ALFONSO [id number] Admission: 08/28/19 Attend Phys: Eugenio Alexandra MD Discharge: Date of : 46 Date of Service: 08/28/19 1745 Report #: [id number] Mean Gr.: 2.56 mmHg E/A Ratio: 0.79 MV Decel. Time: 238.27 ms MV E Max Case.: 0.82 m/s MV PHT: 69.10 ms MVA (PHT): 3.18 cm2 TDI E/Lateral E': 10.25 E/Medial E': 13.67 Medial E' Case.: 0.06 m/s Lateral E' Case.: 0.08 m/s Pulmonary Valve PV Peak Case.: 0.89 m/s PV Peak Gr.: 3.16 mmHg Tricuspid Valve RAP Estimate: 5.00 mmHg TR Peak Gr.: 9.79 mmHg RVSP: 19.79 mmHg PA Pressure: 19.79 mmHg Left Ventricle Left ventricle is mildly dilated. There is global left ventricular hypokinesis. Mild concentric left ventricular hypertrophy. Left ventricular systolic function is moderate to severely decreased. LVEF is 25-30%. Transmitral Doppler flow pattern suggests restrictive physiology. Right Ventricle The right ventricle is normal size. The right ventricular systolic function is normal. Atria Left atrium is mildly dilated. The right atrium size is normal. Aortic Valve Aortic valve is mildly calcified. No aortic regurgitation is present. There is no aortic valvular stenosis. Mitral Valve There is a mechanical mitral valve. There is no mitral valve regurgitation noted. No evidence of mitral valve stenosis. Tricuspid Valve The tricuspid valve is normal in structure. Trace tricuspid [place] [address] 2 D/M-MODE ECHOCARDIOGRAM Name: BING ALFONSO [id number] Admission: 08/28/19 Attend Phys: Eugenio Alexandra MD Discharge: Date of : 46 Date of Service: 08/28/19 1745 Report #: [id number] Pulmonic Valve The pulmonary valve is normal in structure. There is no pulmonic valvular regurgitation. Great Vessels The aortic root is normal in size. IVC is normal in size and collapses >50% with inspiration. Pericardium There is no pericardial effusion. <Conclusion> Left ventricle is mildly dilated. Mild concentric left ventricular hypertrophy. Left ventricular systolic function is moderate to severely decreased. LVEF is 25-30%. Transmitral Doppler flow pattern suggests restrictive physiology. There is global left ventricular hypokinesis. Left atrium is mildly dilated. Aortic valve is mildly calcified. There is a mechanical mitral valve. There is no mitral valve regurgitation noted. No evidence of mitral valve stenosis. Trace tricuspid regurgitation. <ELECTRONICALLY SIGNED> By: Christian Parada MD, FACC 08/28/19 [phone] Christian Parada MD, FACC /INF
== END ==
LOC: M.CRD 09:00
DX: I35.8 Other nonrheumatic aortic valve disorders (principal); Z95.2 Presence of prosthetic heart valve

== ENCOUNTER 2019-10-03 09:57 | Emergency (ER) | payer MEDICARE ==
[~2019-10-03] VITALS: Ht 180.3 cm; Wt 70.3 kg
[2019-10-03] MEDS ORDERED: NEURONTIN100 MG PO (10:09)
[2019-10-03] MEDS ORDERED: IPRAT-ALBUT 0.5-3 ML INH (10:10)
[2019-10-03 11:58] VITALS: BP 131/75
== END 2019-10-03 12:00 | disposition home or self-care (01) ==
LOC: M.ERS 09:57
DX: T82.898A Other specified complication of vascular prosthetic devices, implants and grafts, initial encounter (principal); J44.9 Chronic obstructive pulmonary disease, unspecified; I25.10 Atherosclerotic heart disease of native coronary artery without angina pectoris; E78.00 Pure hypercholesterolemia, unspecified; E11.22 Type 2 diabetes mellitus with diabetic chronic kidney disease; N18.6 End stage renal disease; I50.22 Chronic systolic (congestive) heart failure; Z79.4 Long term (current) use of insulin; Z99.2 Dependence on renal dialysis; Z87.01 Personal history of pneumonia (recurrent); Z88.0 Allergy status to penicillin; Y84.8 Other medical procedures as the cause of abnormal reaction of the patient, or of later complication, without mention of misadventure at the time of the procedure; Y92.89 Other specified places as the place of occurrence of the external cause

== ENCOUNTER 2019-10-03 18:40 | Emergency (ER) | payer MEDICARE ==
[~2019-10-03] VITALS: Ht 180.3 cm; Wt 68.5 kg
[~2019-10-03 18:40] MED LIST changes: +IPRAT-ALBUT 0.5-3 ML INH; +NEURONTIN100 MG PO
[2019-10-03 19:29] VITALS: BP 104/55
== END 2019-10-03 19:29 | disposition still patient (30) ==
LOC: M.ERS 18:40
DX: T82.838A Hemorrhage due to vascular prosthetic devices, implants and grafts, initial encounter (principal); J44.9 Chronic obstructive pulmonary disease, unspecified; I50.22 Chronic systolic (congestive) heart failure; I25.10 Atherosclerotic heart disease of native coronary artery without angina pectoris; E78.00 Pure hypercholesterolemia, unspecified; E11.22 Type 2 diabetes mellitus with diabetic chronic kidney disease; N18.6 End stage renal disease; Z99.2 Dependence on renal dialysis; Z95.5 Presence of coronary angioplasty implant and graft; Z79.4 Long term (current) use of insulin; Z88.0 Allergy status to penicillin; Z87.01 Personal history of pneumonia (recurrent); Y84.8 Other medical procedures as the cause of abnormal reaction of the patient, or of later complication, without mention of misadventure at the time of the procedure; Y92.89 Other specified places as the place of occurrence of the external cause

== ENCOUNTER → 2019-10-11 | Outpatient (CLI) | payer MEDICARE | LOC: M.CT 12:50 | DX: K02.9 Dental caries, unspecified (principal); I71.2 Thoracic aortic aneurysm, without rupture; R91.8 Other nonspecific abnormal finding of lung field; R90.82 White matter disease, unspecified; M47.819 Spondylosis without myelopathy or radiculopathy, site unspecified ==

== ENCOUNTER 2019-10-25 10:15 | Inpatient (IN) | payer MEDICARE ==
[~2019-10-25] VITALS: Ht 177.8 cm; Wt 67.9 kg
[2019-10-25 10:21] VITALS: BP 109/68
[2019-10-25] MEDS ORDERED: AMIODARONE HCL400 MG PO (10:42)
[2019-10-25] MEDS ORDERED: ALPRAZOLAM XR3 MG PO (10:42)
[2019-10-25] MEDS ORDERED: FLEXERIL PO (10:42)
[2019-10-25] MEDS ORDERED: CLINDAGEL75 ML PO (10:42)
[2019-10-25] MEDS ORDERED: SENOKOT-S1 TA2 PO (10:43)
[2019-10-25] MEDS ORDERED: MIDODRINE HCL 55 M1 PO (10:43)
[2019-10-25] MEDS ORDERED: MIRALAX119 GM PO (10:43)
[2019-10-25 11:45] LABS: ABSOLUTE BASOPHILS 0.1 thou/uL (0.0-0.2); ABSOLUTE EOSINOPHILS 0.1 thou/uL (0.0-0.7); ABSOLUTE LYMPHOCYTES 0.7 thou/uL (0.8-5.3); ABSOLUTE MONOCYTES 0.9 thou/uL (0.0-1.2); ABSOLUTE NEUTROPHILS 3.6 thou/uL (1.6-8.1); BASOPHILS 1.1 %; EOSINOPHILS 1.1 %; HEMATOCRIT 32.6 % (42.0-52.0); HEMOGLOBIN 10.3 gm/dL (14.0-18.0); LYMPHOCYTES 13.1 %; MCH 29.4 pg (26.0-34.0); MCHC 31.5 g/dL (28.0-37.0); MCV 93.2 fL (80.0-100.0); MONOCYTES 16.4 %; MPV 8.2 fl. (7.2-11.1); NUCLEATED RBCS 0 /100WBC; PLATELET COUNT* 241 thou/uL (150-400); POLYS 68.3 %; RBC 3.49 mil/uL (4.50-6.00); RDW-CV 19.9 % (10.5-14.5); WBC 5.3 thou/uL (4.0-11.0)
[2019-10-25 11:54] LABS: INR 2.2; PROTIME 22.2 Seconds (9.20-11.50)
[2019-10-25 12:10] LABS: CALCIUM 8.8 mg/dL (8.5-10.1)
[2019-10-25 12:13] LABS: POTASSIUM 2.9 mmol/L (3.5-5.1)
[2019-10-25 12:26] LABS: ALBUMIN 2.8 g/dL (3.4-5.0); TOTAL BILIRUBIN 0.4 mg/dL (<0.1-1.0); TOTAL PROTEIN 7.6 g/dL (6.4-8.2)
[2019-10-25 13:37] LABS: INFLUENZA A ANTIGEN Negative (Negative)
[2019-10-25 13:40] VITALS: BP 109/65
[2019-10-25 15:19] LABS: BE 1.8 mmol/L (-2 to +3); PCO2 45.7 mmHg (35.0-45.0); pH 7.391 (7.340-7.450)
[2019-10-25 15:22] LABS: PO2 168.1 mmHg (75.0-100.0)
--- NOTE | 2019-10-25 15:27 | EKG ---
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: nnamdi : 1950 Requested By: Reid Loza Order Number: [id number] MD: Eugenio Alexandra Measurements Intervals [place] Rate: 84 P: -25 [place]: 161 QRS: -50 QRSD: 131 T: 125 QT: 427 QTc: 505 Interpretive Statements Sinus rhythm nonspecific intraventricular conduction defect nonspecific st changes left axis late transition Compared to ECG 05/09/2019 10:15:11 No significant changes Electronically Signed On 10-25-2019 15:26:04 CDT by Eugenio Alexandra [email or web address] <ELECTRONICALLY SIGNED> By: Eugenio Alexandra MD, [facility] 10/25/19 1526 1022 1022 Eugenio Alexandra MD, [facility] /EPI
[2019-10-25 15:47] VITALS: BP 134/68
[2019-10-25 16:00] VITALS: BP 130/70
[2019-10-25 20:00] VITALS: BP 101/63
[2019-10-26] VITALS: BP 109/66
[2019-10-26 04:30] VITALS: BP 127/69
[2019-10-26 05:03] LABS: ABSOLUTE EOSINOPHILS 0.1 thou/uL (0.0-0.7); ABSOLUTE LYMPHOCYTES 0.7 thou/uL (0.8-5.3); ABSOLUTE MONOCYTES 0.8 thou/uL (0.0-1.2); ABSOLUTE NEUTROPHILS 2.5 thou/uL (1.6-8.1); BASOPHILS 1.1 %; EOSINOPHILS 1.5 %; HEMATOCRIT 29.4 % (42.0-52.0); HEMOGLOBIN 9.3 gm/dL (14.0-18.0); LYMPHOCYTES 16.8 %; MCH 29.9 pg (26.0-34.0); MCHC 31.7 g/dL (28.0-37.0); MCV 94.2 fL (80.0-100.0); MONOCYTES 18.6 %; MPV 8.1 fl. (7.2-11.1); NUCLEATED RBCS 0 /100WBC; PLATELET COUNT* 185 thou/uL (150-400); RBC 3.12 mil/uL (4.50-6.00); RDW-CV 19.9 % (10.5-14.5); WBC 4.1 thou/uL (4.0-11.0)
[2019-10-26 05:26] LABS: ALBUMIN 2.4 g/dL (3.4-5.0); CALCIUM 8.8 mg/dL (8.5-10.1); TOTAL BILIRUBIN 0.3 mg/dL (<0.1-1.0); TOTAL PROTEIN 6.9 g/dL (6.4-8.2)
[2019-10-26 05:30] LABS: POTASSIUM 4.2 mmol/L (3.5-5.1)
[2019-10-26 08:00] VITALS: BP 92/62
[2019-10-26 12:20] VITALS: BP 90/60
[2019-10-26 22:55] VITALS: BP 93/54
[2019-10-27 04:00] VITALS: BP 130/77
[2019-10-27 05:10] LABS: BE 6.6 mmol/L (-2 to +3); PCO2 44.3 mmHg (35.0-45.0); PO2 66.4 mmHg (75.0-100.0); pH 7.464 (7.340-7.450)
[2019-10-27 08:00] VITALS: BP 84/46
[2019-10-27 10:43] LABS: ABSOLUTE EOSINOPHILS 0.1 thou/uL (0.0-0.7); ABSOLUTE LYMPHOCYTES 0.5 thou/uL (0.8-5.3); ABSOLUTE MONOCYTES 0.7 thou/uL (0.0-1.2); ABSOLUTE NEUTROPHILS 2.9 thou/uL (1.6-8.1); BASOPHILS 0.9 %; EOSINOPHILS 1.8 %; HEMATOCRIT 28.3 % (42.0-52.0); HEMOGLOBIN 8.9 gm/dL (14.0-18.0); LYMPHOCYTES 11.6 %; MCH 29.3 pg (26.0-34.0); MCHC 31.3 g/dL (28.0-37.0); MCV 93.4 fL (80.0-100.0); MONOCYTES 16.3 %; MPV 8.2 fl. (7.2-11.1); NUCLEATED RBCS 0 /100WBC; PLATELET COUNT* 168 thou/uL (150-400); POLYS 69.4 %; RBC 3.03 mil/uL (4.50-6.00); RDW-CV 19.8 % (10.5-14.5); WBC 4.2 thou/uL (4.0-11.0)
[2019-10-27 11:00] LABS: ALBUMIN 2.6 g/dL (3.4-5.0); CALCIUM 7.9 mg/dL (8.5-10.1); POTASSIUM 4.3 mmol/L (3.5-5.1); TOTAL BILIRUBIN 0.5 mg/dL (<0.1-1.0); TOTAL PROTEIN 6.7 g/dL (6.4-8.2)
[2019-10-27 11:01] LABS: CREATININE 3.9 mg/dL (0.6-1.3)
[2019-10-27 11:18] VITALS: BP 84/46
[2019-10-27 11:19] VITALS: BP 84/46
[2019-10-27 12:10] VITALS: BP 97/61
[2019-10-27] MEDS ORDERED: AMOXICILLIN500 M1 PO (12:54)
[2019-10-27] MEDS ORDERED: AZITHROMYCIN500 MG PO (12:56)
[2019-10-27 13:04] VITALS: BP 84/46
--- NOTE | 2019-10-29 09:31 | CON ---
[address] [address] CONSULTATION Name: NATYBING Room: [address] IN M.R.#: [id number] Admission: 10/25/19 Attend Phys: Johnnie Jeffrey Discharge: 10/27/19 Date of : 46 Report #: [id number] THIS REPORT FOR: //name// cc: Tanya Kramer Maggie M. DO ~ THIS REPORT FOR: //name// CC: Tanya Meneses DATE OF SERVICE: 10/26/2019 NEPHROLOGY CONSULTATION CONSULTING PHYSICIAN: Dr. Meneses. REASON FOR NEPHROLOGY CONSULTATION: End-stage renal disease, for maintenance hemodialysis. REASON FOR ADMISSION: Shortness of breath. HISTORY OF PRESENT ILLNESS: The patient is a 69-year-old male with past medical history of ESRD on Tuesday, Tuesday and Tuesday hemodialysis at [facility], was sent over from Dr. Kramer's clinic because of shortness of breath. He was found to have a right upper lobe pneumonia, COVID-19 was ruled out negative and positive for flu B. His symptoms are better today and he is also due for dialysis today. ALLERGIES: PENICILLIN. REVIEW OF SYSTEMS: As mentioned in history of present illness, otherwise 10-point review of systems are negative. HOME MEDICATIONS: Include magnesium, budesonide, metoclopramide, insulin aspart, glargine, warfarin, gabapentin, ipratropium, albuterol, clindamycin, midodrine, senna, docusate, amiodarone, metoprolol, furosemide, warfarin, alprazolam, cyclobenzaprine, polyethylene glycol, atorvastatin and calcium. PAST MEDICAL AND SURGICAL HISTORY: Includes COPD, ESRD on hemodialysis, right upper arm AV fistula, coronary artery disease, dyslipidemia, pneumonia, mechanical mitral valve replacement, cardiomyopathy, chronic systolic congestive heart failure, ejection fraction 30% in 09/2018, diabetes mellitus, essential hypertension, and previous tracheostomy, , coronary artery disease, anemia, and hyperlipidemia. FAMILY HISTORY: [place] history [place] [address] CONSULTATION Name: NATYBING WON Room: [address] IN [facility].#: [id number] Admission: 10/25/19 Attend Phys: Johnnie Jeffrey Discharge: 10/27/19 Date of : 46 Report #: [id number] SOCIAL HISTORY: Former smoker, does not use recreational drugs and does drink alcohol daily 1 cup of rum. PHYSICAL EXAMINATION: VITAL SIGNS: Blood pressure is 127/69, respiratory rate is 16, pulse rate 81, temperature is 36.8, and pulse ox on 4 liters of oxygen by nasal cannula 100% pulse ox. GENERAL: He is awake and alert and oriented x 3, eating breakfast. HEAD AND EYES: Atraumatic, normocephalic. EARS, NOSE, AND THROAT: Normal ears and nose. Mucous membranes are moist. NECK: No JVD. CHEST: Bilateral diminished breath sounds. No crackles or wheezing. CARDIOVASCULAR: S1, S2 normal. No murmurs. ABDOMEN: Soft, nondistended, and nontender. EXTREMITIES: Lower extremities, there is no lower extremity edema. NEUROLOGICAL: Gross neurological function is intact. PSYCHIATRIC: Mood and affect seem to be normal. DIALYSIS ACCESS: Right arm AV fistula with good bruit and thrill. LABORATORY DATA: Hemoglobin is 9.3, sodium is 136, and potassium 4.4. Other labs are reviewed. IMAGING: Chest x-ray was reviewed. ASSESSMENT: 1. End-stage renal disease, on hemodialysis every Tuesday, Tuesday, and Tuesday. 2. Shortness of breath, influenza B positive, COVID-19 negative and he has right upper lobe pneumonia. He is being treated for that by primary team. 3. Hypertension. 4. Anemia of chronic kidney disease. PLAN: 1. He will be dialyzed today according to his regular schedule. 2. Epogen will be given to help with anemia. 3. PPE used with N95 mask, face shield, gowns and gloves. 4. We will continue to follow with you. Discussed with the patient, the patient's nurse, and Dr. Meneses. <ELECTRONICALLY SIGNED> By: Adela Molina MD 10/29/19 0931 0958 [id number] Molina MD /nt
== END 2019-10-27 14:10 | disposition home health service (06) | DRG 177 ==
LOC: M.ERS 10:15 → M.TBA-ER 12:17 → M.ORTHSURG 12:17 → M.2W 10-26 23:03
PROVIDERS: Emergency Medicine Emergency Medical Services; ADMIT Internal Medicine; ATTEND Internal Medicine
DX: J10.08 Influenza due to other identified influenza virus with other specified pneumonia (principal); E43 Unspecified severe protein-calorie malnutrition; J15.6 Pneumonia due to other Gram-negative bacteria; N18.6 End stage renal disease; N17.9 Acute kidney failure, unspecified; I50.22 Chronic systolic (congestive) heart failure; I43 Cardiomyopathy in diseases classified elsewhere; I13.2 Hypertensive heart and chronic kidney disease with heart failure and with stage 5 chronic kidney disease, or end stage renal disease; J44.0 Chronic obstructive pulmonary disease with (acute) lower respiratory infection; E11.22 Type 2 diabetes mellitus with diabetic chronic kidney disease; D63.1 Anemia in chronic kidney disease; M06.9 Rheumatoid arthritis, unspecified; E78.00 Pure hypercholesterolemia, unspecified; I25.10 Atherosclerotic heart disease of native coronary artery without angina pectoris; E78.5 Hyperlipidemia, unspecified; Z68.21 Body mass index [BMI] 21.0-21.9, adult; Z95.5 Presence of coronary angioplasty implant and graft; Z95.2 Presence of prosthetic heart valve; Z99.2 Dependence on renal dialysis; Z79.899 Other long term (current) drug therapy; Z79.01 Long term (current) use of anticoagulants; Z79.4 Long term (current) use of insulin; Z88.0 Allergy status to penicillin; Z87.891 Personal history of nicotine dependence; Z99.81 Dependence on supplemental oxygen; Z03.818 Encounter for observation for suspected exposure to other biological agents ruled out

== ENCOUNTER 2019-10-27 17:03 | Inpatient (IN) | payer MEDICARE ==
[~2019-10-27] VITALS: Ht 177.8 cm; Wt 75.5 kg
[~2019-10-27 17:03] MED LIST changes: +ALPRAZOLAM XR3 MG PO; +AMIODARONE HCL400 MG PO; +AMOXICILLIN500 M1 PO; +AZITHROMYCIN500 MG PO; +CLINDAGEL75 ML PO; +FLEXERIL PO; +MIRALAX119 GM PO; +SENOKOT-S1 TA2 PO
[2019-10-27 17:04] VITALS: BP 105/62
[2019-10-27 18:08] LABS: ABSOLUTE BASOPHILS 0.1 thou/uL (0.0-0.2); ABSOLUTE EOSINOPHILS 0.1 thou/uL (0.0-0.7); ABSOLUTE LYMPHOCYTES 0.4 thou/uL (0.8-5.3); ABSOLUTE MONOCYTES 0.8 thou/uL (0.0-1.2); ABSOLUTE NEUTROPHILS 4.2 thou/uL (1.6-8.1); BASOPHILS 1.1 %; HEMATOCRIT 28.2 % (42.0-52.0); HEMOGLOBIN 8.9 gm/dL (14.0-18.0); LYMPHOCYTES 6.6 %; MCH 29.9 pg (26.0-34.0); MCHC 31.6 g/dL (28.0-37.0); MCV 94.5 fL (80.0-100.0); MONOCYTES 13.9 %; MPV 8.5 fl. (7.2-11.1); NUCLEATED RBCS 0 /100WBC; PLATELET COUNT* 181 thou/uL (150-400); POLYS 77.4 %; RBC 2.99 mil/uL (4.50-6.00); RDW-CV 20.1 % (10.5-14.5); WBC 5.4 thou/uL (4.0-11.0)
[2019-10-27 18:15] LABS: INR 1.7; PROTIME 17.4 Seconds (9.20-11.50)
[2019-10-27 18:19] LABS: BE -1.3 mmol/L (-2 to +3); PCO2 41.1 mmHg (35.0-45.0); PO2 118.7 mmHg (75.0-100.0)
[2019-10-27 18:29] LABS: CALCIUM 8.3 mg/dL (8.5-10.1); CREATININE 4.3 mg/dL (0.6-1.3); POTASSIUM 4.5 mmol/L (3.5-5.1)
[2019-10-27 18:39] LABS: ALBUMIN 2.7 g/dL (3.4-5.0); TOTAL BILIRUBIN 0.3 mg/dL (<0.1-1.0); TOTAL PROTEIN 6.3 g/dL (6.4-8.2)
[2019-10-27 18:42] LABS: ANISOCYTOSIS 2+; PLATELET ESTIMATE ADEQUATE
[2019-10-27 20:17] VITALS: BP 115/78
--- NOTE | 2019-10-27 20:25 | NUR ---
REPORT CALLED TO LILIAN AT 2015.
[2019-10-27 20:39] VITALS: BP 115/78
[2019-10-27 21:15] VITALS: BP 112/69
[2019-10-27 23:35] VITALS: BP 105/65
[2019-10-28 04:00] VITALS: BP 107/65
--- NOTE | 2019-10-28 05:15 | NUR ---
RECEIVED REPORT FROM ASSEMBLER METAL FURNITURE MELANIA AT 2039. PT ARRIVED TO UNIT AT 2049. NURSING ASSESSMENT COMPLETED. SR ON GEAR REPAIR SUPERVISOR. PT VOICED NO CONCERNS THIS SHIFT. DENIES PAIN. AAOX4, AWAKE WATCHING TV AFTER ARRIVAL TO UNIT. HOURLY ROUNDING COMPLETED. HIGH FALL PRECAUTIONS IN PLACE. CALL LIGHT WITHIN REACH.
[2019-10-28 09:39] LABS: ALBUMIN 2.8 g/dL (3.4-5.0); CALCIUM 8.5 mg/dL (8.5-10.1); CREATININE 5.1 mg/dL (0.6-1.3); POTASSIUM 4.6 mmol/L (3.5-5.1); TOTAL BILIRUBIN 0.5 mg/dL (<0.1-1.0); TOTAL PROTEIN 7.6 g/dL (6.4-8.2)
[2019-10-28 09:52] LABS: HEMATOCRIT 31.1 % (42.0-52.0); HEMOGLOBIN 9.8 gm/dL (14.0-18.0); MCH 29.6 pg (26.0-34.0); MCHC 31.6 g/dL (28.0-37.0); MCV 93.8 fL (80.0-100.0); MPV 8.9 fl. (7.2-11.1); RBC 3.32 mil/uL (4.50-6.00); RDW-CV 20.2 % (10.5-14.5); WBC 5.4 thou/uL (4.0-11.0)
[2019-10-28 15:51] VITALS: BP 100/63
[2019-10-28 20:00] VITALS: BP 111/67
[2019-10-29 00:10] VITALS: BP 114/66
[2019-10-29 04:34] VITALS: BP 104/67
[2019-10-29 05:52] LABS: ABSOLUTE EOSINOPHILS 0.1 thou/uL (0.0-0.7); ABSOLUTE LYMPHOCYTES 0.8 thou/uL (0.8-5.3); ABSOLUTE MONOCYTES 0.7 thou/uL (0.0-1.2); ABSOLUTE NEUTROPHILS 2.6 thou/uL (1.6-8.1); BASOPHILS 0.3 %; HEMATOCRIT 24.6 % (42.0-52.0); LYMPHOCYTES 18.1 %; MCH 29.7 pg (26.0-34.0); MCHC 32.3 g/dL (28.0-37.0); MCV 91.8 fL (80.0-100.0); MONOCYTES 17.1 %; MPV 7.6 fl. (7.2-11.1); NUCLEATED RBCS 0 /100WBC; PLATELET COUNT* 169 thou/uL (150-400); POLYS 62.5 %; RBC 2.68 mil/uL (4.50-6.00); RDW-CV 19.3 % (10.5-14.5); WBC 4.2 thou/uL (4.0-11.0)
[2019-10-29 06:08] LABS: ALBUMIN 2.2 g/dL (3.4-5.0); CALCIUM 8.4 mg/dL (8.5-10.1); POTASSIUM 4.8 mmol/L (3.5-5.1); TOTAL BILIRUBIN 0.3 mg/dL (<0.1-1.0); TOTAL PROTEIN 6.2 g/dL (6.4-8.2)
[2019-10-29 06:15] LABS: CREATININE 6.8 mg/dL (0.6-1.3)
--- NOTE | 2019-10-29 06:32 | NUR ---
Shift uneventful. Pt is aox4, running 1st degree AV block w/ BBB on telemetry, respirations are even and unlabored on 2 L NC.
[2019-10-29 08:00] VITALS: BP 104/59
--- NOTE | 2019-10-29 10:21 | NUR ---
CM left VM for Pt's . Pt discharged on 10/26, went home fell and returned to the hospital on 10/26. CM to speak with to confirm dispo. Pt is current with [facility] BS and will need H&P, and flowsheets faxed at mi [phone]. CM faxed info to [facility] from weekend dc, along with covid test results. Awaiting call back from .
--- NOTE | 2019-10-29 10:58 | EKG ---
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: : 1950 Requested By: Indu Landeros Order Number: [id number] Jazmin MD: Jean-Pierre Garcia Measurements Intervals [place] Rate: 95 P: 9 [place]: 176 QRS: -43 QRSD: 138 T: 108 QT: 406 QTc: 511 Interpretive Statements Sinus rhythm Left bundle branch block Compared to ECG 10/25/2019 10:22:34 Left bundle-branch block now present Electronically Signed On 10-29-2019 10:56:50 CDT by Jean-Pierre Garcia [email or web address] <ELECTRONICALLY SIGNED> By: Jean-Pierre Garcia MD, [facility] 10/29/19 1056 1706 1706 Jean-Pierre Garcia MD, [facility] /EPI
[2019-10-29 20:00] VITALS: BP 102/62
[2019-10-30] VITALS (8 sets, daily range): BP systolic 85–124; BP diastolic 54–71
--- NOTE | 2019-10-30 06:12 | NUR ---
ASSUMED CARE OF PT AFTER REPORT AT 1930. PT A&OX4. VSS. PHYSICAL ASSESSMENT COMPLETED AND CHARTED. PT ON AT 2.5L NC. PT TRACING SR/1ST DEG/BBB ON TELE. PT UP WITH 2 ASSIST. PT COMPLAINED OF RIGHT KNEE PAIN-MED GIVEN PER SEP. PT WITH EPISODE OF BP 85/54-DR GOULD MADE AWARE. MAINTAINED OF DROPLET PRECAUTION FOR FLU. FALL PRECAUTION IN PLACE. CALL LIGHT WITHIN REACH.
[2019-10-30 06:16] LABS: ABSOLUTE LYMPHOCYTES 0.5 thou/uL (0.8-5.3); ABSOLUTE MONOCYTES 0.6 thou/uL (0.0-1.2); ABSOLUTE NEUTROPHILS 2.1 thou/uL (1.6-8.1); BASOPHILS 1.2 %; EOSINOPHILS 1.5 %; HEMATOCRIT 24.9 % (42.0-52.0); LYMPHOCYTES 14.6 %; MCH 29.7 pg (26.0-34.0); MCHC 32.1 g/dL (28.0-37.0); MCV 92.7 fL (80.0-100.0); MONOCYTES 18.8 %; MPV 8.2 fl. (7.2-11.1); NUCLEATED RBCS 0 /100WBC; PLATELET COUNT* 167 thou/uL (150-400); POLYS 63.9 %; RBC 2.69 mil/uL (4.50-6.00); RDW-CV 19.1 % (10.5-14.5); WBC 3.3 thou/uL (4.0-11.0)
[2019-10-30 06:20] LABS: INR 1.5; PROTIME 15.1 Seconds (9.20-11.50)
[2019-10-30 06:37] LABS: ALBUMIN 2.2 g/dL (3.4-5.0); CALCIUM 8.5 mg/dL (8.5-10.1); POTASSIUM 4.2 mmol/L (3.5-5.1); TOTAL BILIRUBIN 0.2 mg/dL (<0.1-1.0); TOTAL PROTEIN 6.5 g/dL (6.4-8.2)
[2019-10-30 06:41] LABS: CREATININE 4.3 mg/dL (0.6-1.3)
--- NOTE | 2019-10-30 09:09 | CON ---
[address] [address] CONSULTATION Name: BING ALFONSO Room: [address] IN M.R.#: [id number] Admission: 10/27/19 Attend Phys: Indu Landeros MD Discharge: Date of : 46 Report #: [id number] THIS REPORT FOR: //name// cc: COREY Johnson family physician/PCP COREY Johnson family physician/PCP ~ THIS REPORT FOR: //name// CC: COREY physician/PCP Indu Landeros DATE OF SERVICE: 10/29/2019 NEPHROLOGY CONSULTATION CONSULTING PHYSICIAN: Indu Landeros MD REASON FOR NEPHROLOGY CONSULTATION: ESRD, for hemodialysis needs. REASON FOR ADMISSION: Fall. HISTORY OF PRESENT ILLNESS: This is a 69-year-old male with past medical history of end-stage renal disease, on hemodialysis every Tuesday, Tuesday and Tuesday, last dialysis was on Tuesday here at [facility] when he was admitted for pneumonia, was diagnosed with right upper lobe pneumonia along with flu B infection. COVID-19 was ruled out at that time and he was offered rehab, but he refused and ended up going home on Tuesday itself, but ended up coming to the hospital on the , which was day before yesterday after he had a fall at home. The patient is agreeable to physical therapy and occupational therapy now. His breathing is actually better from last time. He was seen eating his breakfast this morning. ALLERGIES: PENICILLIN. REVIEW OF SYSTEMS: As mentioned in history of present illness. He has not been having any nausea or vomiting. He is on oxygen, currently at rest, weakness, otherwise 10-point review of systems done, negative. HOME MEDICATIONS: Include magnesium oxide, metoclopramide, NovoLog insulin, Lantus, Neurontin, ipratropium, albuterol, midodrine, Senokot, amiodarone, pantoprazole, warfarin, furosemide, budesonide and formoterol, alprazolam, cyclobenzaprine, polyethylene glycol, amoxicillin, azithromycin, atorvastatin. PAST MEDICAL AND SURGICAL HISTORY: Includes COPD; ESRD, on hemodialysis every Tuesday, Tuesday and Tuesday; right upper arm AV fistula; coronary artery disease, he has had 1 stent; dyslipidemia; pneumonia with sepsis; chronic systolic congestive heart failure, ejection fraction of 30% in 09/2018; [place] [address] CONSULTATION Name: BING ALFONSO Room: [address]#: [id number] Admission: 10/27/19 Attend Phys: Indu Landeros MD Discharge: Date of : 46 Report #: [id number] mechanical mitral valve replacement; diabetes mellitus; orthostatic hypotension; previous tracheostomy; rheumatoid arthritis; pulmonary hypertension; anemia. FAMILY HISTORY: Heart disease and hypertension. SOCIAL HISTORY: He is a former smoker. Uses alcohol every day, a glasses of rum. No recreational drug use.. PHYSICAL EXAMINATION: VITAL SIGNS: Blood pressure is 104/67, pulse rate is 82, temperature 36.7, respiratory rate is 18, pulse ox is 96% on 2 liters of oxygen by nasal cannula. GENERAL: He is awake and alert and oriented x3. HEAD AND EYES: Atraumatic, normocephalic. Normal conjunctivae. EARS, NOSE, AND THROAT: Normal ears and nose. Mucous membranes are moist. NECK: There was no JVD. CHEST: Bilaterally diminished breath sounds. No crackles heard. CARDIOVASCULAR: S1, S2 normal. No murmurs. ABDOMEN: Soft, obese, nondistended, nontender. EXTREMITIES: There is no lower extremity edema. DIALYSIS ACCESS: He has a right arm AV fistula with good bruit and thrill. NEUROLOGICAL FUNCTION: He has generalized weakness. PSYCHIATRIC: Mood and affect seems to be normal. LABORATORY DATA: WBC 4.2, hemoglobin is 8.0, platelet count is 169. Sodium was 132, potassium is 4.8. Other labs are reviewed. IMAGING: Knee x-ray, pelvic x-ray and chest x-ray and head CT were reviewed. ASSESSMENT: 1. End-stage renal disease, on hemodialysis every Tuesday, Tuesday, Tuesday. 2. The patient came in with a fall and will be getting physical therapy and occupational therapy. 3. Recent right upper lobe pneumonia and flu B infection. Coronavirus-19 infection was ruled out. 4. Anemia of chronic kidney disease. 5. Chronic systolic congestive heart failure, ejection fraction of 30%. He is currently compensated. 6. Chronic obstructive pulmonary disease history and the primary team is managing that. 7. History of diabetes mellitus. Primary team is managing that. 8. History of hyperlipidemia. 9. History of pulmonary hypertension. PLAN: The patient will be dialyzed today because it is his regular dialysis day and I will continue Epogen to [place] [address] CONSULTATION Name: BING ALFONSO Room: [address] IN M.R.#: [id number] Admission: 10/27/19 Attend Phys: Indu Landeros MD Discharge: Date of : 46 Report #: [id number] Maintain hemodialysis diet. Thank you for this consultation. We will continue to follow along with you for dialysis needs. Discussed with the patient. <ELECTRONICALLY SIGNED> By: Adela Molina MD 10/30/19 0909 [id number] Molina MD /nt
--- NOTE | 2019-10-30 13:12 | NUR ---
ASSUMED PT CARE AT 0730, PT RESTING IN BED, A&OX4, SATTING 99% ON 2 L, TRACING SR W/ A 1ST DEGREE AND BBB ON PRINTING SHOP SUPERVISOR. PT C/O PAIN TO RT KNEE RATED AT A 7, TYLENOL GIVEN W/ NO RELIEF. NON-PHARM MEASURES USED W/ SOME RELIEF. PT TO SEE ST FOR SWALLOW STUDY TODAY. PT IN ISO FOR FLU B. HAS A FISTULA IN PLACE IN [place] WITH THRILL AND BRUIT NOTED. PT GOAL IS TO DECREASE RT KNEE PAIN, WORK W/ THERAPIES AND HAVE REHAB CONSULT. AM ASSESSMENT CHARTED, MEDS PER MAR, BED IN LOW POSITION, BED ALARM ON, CALL LIGHT W/IN REACH, WILL CONTINUE POC.
[2019-10-30] MEDS ORDERED: ROCEPHIN 11 GM/1001 IVPB (14:51)
--- NOTE | 2019-10-30 18:37 | NUR ---
NO ACUTE CHANGES THROUGHOUT SHIFT, PT HAD NO MORE C/O PAIN THROUGHOUT SHIFT AND WORKED W/ PT TODAY AND WAS UP TO CHAIR FOR ALL MEALS. SEEN BY REHAB AND WILL DC TO INPATIENT REHAB TOMORROW. MEDS PER MAR, WILL CONTINUE POC.
[2019-10-31] VITALS: BP 132/75
[2019-10-31 04:00] VITALS: BP 110/71
--- NOTE | 2019-10-31 04:26 | NUR ---
ASSUMED CARE OF PT AFTER REPORT AT 1930. PT A&OX4. VSS. PHYSICAL ASSESSMENT COMPLETED AND CHARTED. PT ON O2 AT 2L NC. PT TRACING SR/1ST DEG/BBB ON TELE. PT UP WITH 2 ASSIST TO BSC. PT DENIES ANY PAIN OR DISCOMFORT. MAINTAINED ON DROPLET PRECAUTION FOR FLU. PT ABLE TO SLEEP WELL ON BED. FALL PRECAUTIONS IN PLACE. CALL LIGHT WITHIN REACH.
[2019-10-31 06:47] LABS: HEMATOCRIT 24.7 % (42.0-52.0); HEMOGLOBIN 7.9 gm/dL (14.0-18.0); MCH 29.3 pg (26.0-34.0); MCHC 31.9 g/dL (28.0-37.0); MCV 91.9 fL (80.0-100.0); MPV 8.3 fl. (7.2-11.1); RBC 2.68 mil/uL (4.50-6.00); RDW-CV 19.3 % (10.5-14.5); WBC 4.2 thou/uL (4.0-11.0)
[2019-10-31 07:12] LABS: ALBUMIN 2.1 g/dL (3.4-5.0); CALCIUM 8.6 mg/dL (8.5-10.1); POTASSIUM 5.1 mmol/L (3.5-5.1); TOTAL BILIRUBIN 0.3 mg/dL (<0.1-1.0); TOTAL PROTEIN 6.3 g/dL (6.4-8.2)
[2019-10-31 08:01] VITALS: BP 107/69
[2019-10-31] MEDS ORDERED: CEFDINIR300 MG PO (09:08)
--- NOTE | 2019-10-31 09:10 | NUR ---
Pt medically stable to dc to acute rehab. Updated vocational rehabilitation consultant, Pt's dialysis schedule will need to be changed and Pt should be able to go up to acute rehab later today.
[2019-10-31 13:20] VITALS: BP 119/68
[2019-10-31 13:25] VITALS: BP 119/68
--- NOTE | 2019-10-31 13:49 | NUR ---
ASSUMED PT CARE AT 0730, PT RESTING IN BED AND HAD NO C/O PAIN. PT WENT TO DIALYSIS AT APPROX 0830 AND CAME BACK AT APPROX 1300, THEY TOOK OFF O.5 L. PT IS AWAITING DISCHARGE TO REHAB. AM ASSESSMENT CHARTED, MEDS PER MAR, BED IN LOW POSITION, CALL LIGHT W/IN REACH, WILL CONTINUE POC.
--- NOTE | 2019-10-31 15:50 | NUR ---
DISCHARGE ORDERS RECEIVED, DISCHARGE INSTRUCTIONS, CARE NOTES, SCRIPTS AND F/U APPTS. GIVEN TO PT. PT COMMUNICATES UNDERSTANDING OF DISCHARGE TEACHING. IV AND KILN REMOVER REMOVED, PT DISCHARGED W/ ALL BELONGINGS AND PAPERWORK VIA BED W/ NURSING STAFF TO REHAB UPSTAIRS. REPORT GIVEN TO KELVIN US.
== END 2019-10-31 15:50 | DRG 177 ==
LOC: M.ERS 17:03 → M.2W 19:07 → M.TBA-ER 19:07 → M.2W 21:27
PROVIDERS: Internal Medicine; Personal Emergency Response Attendant; ADMIT Internal Medicine
PROC: 5A1D70Z Performance of Urinary Filtration, Intermittent, Less than 6 Hours Per Day (ICD-10-PCS; 2019-10-29)
PROC: 5A1D70Z Performance of Urinary Filtration, Intermittent, Less than 6 Hours Per Day (ICD-10-PCS; principal; 2019-10-31)
DX: J15.6 Pneumonia due to other Gram-negative bacteria (principal); E43 Unspecified severe protein-calorie malnutrition; N18.6 End stage renal disease; J96.11 Chronic respiratory failure with hypoxia; I42.9 Cardiomyopathy, unspecified; I50.22 Chronic systolic (congestive) heart failure; E87.2 Acidosis; N17.9 Acute kidney failure, unspecified; R65.10 Systemic inflammatory response syndrome (SIRS) of non-infectious origin without acute organ dysfunction; I13.2 Hypertensive heart and chronic kidney disease with heart failure and with stage 5 chronic kidney disease, or end stage renal disease; D68.59 Other primary thrombophilia; J44.9 Chronic obstructive pulmonary disease, unspecified; I25.10 Atherosclerotic heart disease of native coronary artery without angina pectoris; Z95.5 Presence of coronary angioplasty implant and graft; Z87.01 Personal history of pneumonia (recurrent); E78.00 Pure hypercholesterolemia, unspecified; Z95.4 Presence of other heart-valve replacement; E11.22 Type 2 diabetes mellitus with diabetic chronic kidney disease; M06.9 Rheumatoid arthritis, unspecified; I27.20 Pulmonary hypertension, unspecified; E78.5 Hyperlipidemia, unspecified; I95.1 Orthostatic hypotension; D63.1 Anemia in chronic kidney disease; I48.91 Unspecified atrial fibrillation; Z79.899 Other long term (current) drug therapy; Z79.4 Long term (current) use of insulin; Z79.01 Long term (current) use of anticoagulants; Z79.2 Long term (current) use of antibiotics; Z88.0 Allergy status to penicillin; Z72.89 Other problems related to lifestyle; Z99.2 Dependence on renal dialysis; Z82.49 Family history of ischemic heart disease and other diseases of the circulatory system; Z87.891 Personal history of nicotine dependence; Z68.23 Body mass index [BMI] 23.0-23.9, adult; Z03.818 Encounter for observation for suspected exposure to other biological agents ruled out

== ENCOUNTER 2019-10-31 13:08 | Inpatient (IN) | payer MEDICARE ==
[~2019-10-31] VITALS: Ht 177.8 cm; Wt 68.5 kg
[~2019-10-31 13:08] MED LIST changes: +CEFDINIR300 MG PO; +ROCEPHIN 11 GM/1001 IVPB
--- NOTE | 2019-10-31 17:14 | NUR ---
PT ARRIVED FROM ABOUT 1630. NO IV. PT STABLE. ON 2LO2, ALSO ON AT HOME. ADMISSION COMPLETE. RESTING IN BED. ON PRECAUTIONS FOR POSITIVE FLU B SWAB. ON RENAL/CARB CONTROL DIET. ACCU CHECK. LIMB ALERT ON RIGHT ARM DUE TO FISTULA. DIALYSIS WILL BE TUES, THURS AND SAT. DENIED PAIN. DENIED NAUSEA. FALL PRECAUTIONS IN PLACE. CALL LIGHT WITHIN REACH. WILL CONTINUE TO MONITOR.
[2019-10-31 20:20] VITALS: BP 106/69
[2019-11-01 07:45] VITALS: BP 132/72
--- NOTE | 2019-11-01 08:42 | NUR ---
Pt discharged to acute rehab yesterday
--- NOTE | 2019-11-01 10:52 | NUR ---
Nutrition: Pt admitted to rehabwith debility. H/o ESRD on HD, COPD, RA, CHF. Usual wt is around 155# but fluctuates R/T dialysis. Today's wt is 166#. Renal/CHO ciet. Pt usually eats well. He does like Nepro oral supplements with his dialysis. Labs: BG 127, BUN 31, cr 6, GFR 11, alb 2.1, prealb 18.4, Hgb 7.9. No nutrition interventions needed today. Pt is at low risk. Will follow weekly.
--- NOTE | 2019-11-01 16:43 | NUR ---
Pt lives at home with . Pt has hx of living at [place] [facility] [place]. Pt has RW. Pt has dialysis MWF at [facility]. Pt is current with [facility]. SW to continue to follow to assist with safe dc planning and speaking with pt and pt as needed.
--- NOTE | 2019-11-01 17:58 | NUR ---
PATIENT CURRENTLY GETTING DIALYSIS. PATIENT HAS WORKED WITH THERAPIES TODAY. PATIENT HAS GOOD APPETITE. PATIENT HAD COMPLAINTS OF JOINT PAIN THIS AM, TYLENOL GIVEN.
[2019-11-01 20:32] VITALS: BP 137/80
[2019-11-02 04:56] LABS: HEMATOCRIT 24.9 % (42.0-52.0); MCH 29.9 pg (26.0-34.0); MCHC 32.2 g/dL (28.0-37.0); MCV 92.6 fL (80.0-100.0); MPV 8.3 fl. (7.2-11.1); RBC 2.69 mil/uL (4.50-6.00); RDW-CV 18.9 % (10.5-14.5); WBC 4.3 thou/uL (4.0-11.0)
[2019-11-02 05:15] LABS: INR 1.3; PROTIME 13.5 Seconds (9.20-11.50)
[2019-11-02 05:17] LABS: CREATININE 2.7 mg/dL (0.6-1.3); POTASSIUM 4.1 mmol/L (3.5-5.1)
--- NOTE | 2019-11-02 05:40 | NUR ---
ASSUMED CARES AT 1920. ALERT AND ORIENTED. PLEASANT. C/O PAIN TO RIGHT KNEE. TYLENOL GIVEN. DIALYSIS COMPLETED AT 2014. BELLA FISTULA WITH DRESSING IN PLACE. O2 2L NC. ANURIA. SLEPT MOST OF THE NIGHT. CALL LIGHT IN REACH AND BED ALARM ON.
[2019-11-02 07:41] VITALS: BP 123/70
[2019-11-02 08:35] VITALS: BP 123/70
--- NOTE | 2019-11-02 16:24 | NUR ---
PATIENT RESTING UP IN CHAIR. PATIEN TIS UP WITH MODERATE ASSIST WITH GAIT BELT AND WALKER FOR TRANSFERS. PATIENT HAS HAD COMPLAINTS OF KNEE/JOINT PAIN, TREATED WITH TYLENOL. PATIENT HAD COMPLAINTS OF SORE THROAT, NON-MEDICATED LOZENGES PROVIDED. PATIENT HAS EXCELLENT APPETITE. PATIENT DENIES ANY NEEDS AT THIS TIME. CALL LIGHT WITHIN REACH. CHAIR ALARM ON.
[2019-11-02 20:36] VITALS: BP 131/78
--- NOTE | 2019-11-03 03:39 | NUR ---
ASSUMED CARE AT 1930. PATIENT RESTING IN BED. O2 2L/NC. FLUID RESTRICTION OBSERVED. TURNS WITH MAX ASSIST. RT ARM EDEMATOUS NEAR ELBOW. RT WRIST RADIAL PULSE PRESENT. ELEVATED ON PILLOW. PHYSICIAN NOTIFIED BY PREVIOUS SHIFT. BRUIT HEARD, THRILL PALPATED. DENIES PAIN. TAKES PILLS WHOLE WITH WATER. HAS BEEN SLEEPING AT TIMES. NO C/O PAIN,. HOURLY ROUNDS CONTINUE. BED ALARM ON. CALL LITE IN REACH.
[2019-11-03 05:05] LABS: HEMATOCRIT 23.7 % (42.0-52.0); HEMOGLOBIN 7.5 gm/dL (14.0-18.0); MCH 29.4 pg (26.0-34.0); MCHC 31.8 g/dL (28.0-37.0); MCV 92.6 fL (80.0-100.0); MPV 8.6 fl. (7.2-11.1); RBC 2.55 mil/uL (4.50-6.00); RDW-CV 18.8 % (10.5-14.5); WBC 4.8 thou/uL (4.0-11.0)
[2019-11-03 05:16] LABS: ALBUMIN 2.4 g/dL (3.4-5.0); CALCIUM 8.4 mg/dL (8.5-10.1); POTASSIUM 4.6 mmol/L (3.5-5.1)
[2019-11-03 05:18] LABS: CREATININE 4.3 mg/dL (0.6-1.3)
--- NOTE | 2019-11-03 05:51 | NUR ---
SLEPT MUCH OF NIGHT. ASSISTED WITH TURNS. NO C/O PAIN. HOURLY ROUNDS CONTINUE. BED ALARM ON. CALL LITE IN REACH. RT ARM UP ON PILLOW THROUGH SHIFT.
--- NOTE | 2019-11-03 17:13 | NUR ---
ASSESSMENT COMPLETED DOCUMENTED THIS MORNING, 02 SAT 88-90% ON 2LPM/NC....INCREASED TO 3LPM/NC AND INCREASED TO 94%. INCREASED HUGHES AND BILATERAL WHEEZES NOTED. TOLERATING THERAPY WELL WITH SLOW PROGRESSION. ABD SOFT AND SLIGHTLY DISTENDED, MILD FACIAL EDEMA NOTED. PATIENT TAKEN TO DIALYSIS INHOUSE AT 1400, EDEMA MUCH LESS NOTICEABLE AND BREATHING IS MUCH LESS DYSPNEIC WITH ACTIVITY.
[2019-11-03 20:18] VITALS: BP 112/63
--- NOTE | 2019-11-03 23:13 | NUR ---
ASSUMED CARE AT 1930. PATIENT RESTING IN BED. JUST GOT BACK FROM DIALYSIS. DRESSING TO RUE D/I. THRILL AND BRUIT PRESENT. ASSISTED WITH TURNS. TAKES PILLS WHOLE WITH WATER. O2 3L/NC. DOES NOT VOID. SOA WITH EXERTION. WAS WATCHING A BOXING MATCH FROM 1974 UNTIL AFTER 2129. RT ARM SWELLING IMPROVED FROM YESTERDAY. MEDICATED FOR PAIN WITH APAP. SEE SEP. HOURLY ROUNDS CONTINUE. BED ALARM ON. CALL LITE IN REACH.
--- NOTE | 2019-11-04 05:58 | NUR ---
SLEPT MOST OF THE NIGHT WITH THE TV ON LOUDLY IN ROOM. ASSISTED WITH TURNS. NO C/O PAIN. HOURLY ROUNDS CONTINUE. BED ALARM ON. CALL LITE IN REACH.
[2019-11-04 07:19] LABS: ALBUMIN 2.5 g/dL (3.4-5.0); CALCIUM 8.3 mg/dL (8.5-10.1); POTASSIUM 4.8 mmol/L (3.5-5.1); TOTAL BILIRUBIN 0.3 mg/dL (<0.1-1.0); TOTAL PROTEIN 6.3 g/dL (6.4-8.2)
[2019-11-04 07:20] LABS: CREATININE 2.8 mg/dL (0.6-1.3)
[2019-11-04 07:43] LABS: HEMATOCRIT 24.8 % (42.0-52.0); HEMOGLOBIN 7.9 gm/dL (14.0-18.0); MCHC 31.7 g/dL (28.0-37.0); MCV 91.5 fL (80.0-100.0); RBC 2.71 mil/uL (4.50-6.00); RDW-CV 18.8 % (10.5-14.5); WBC 4.8 thou/uL (4.0-11.0)
[2019-11-04 08:29] VITALS: BP 108/58
[2019-11-04 08:48] LABS: INR 1.4; PROTIME 14.4 Seconds (9.20-11.50)
--- NOTE | 2019-11-04 18:38 | NUR ---
ASSESSMENT COMPLETED DOCUMENTED THIS MORNING. HAS BEEN UP IN RECLINER AT THE BEDSIDE MOST OF THE DAY AND TOLERATING WELL. BECOMES QUITE DYSPNEIC WITH MINIMAL ACTIVITY. LARGE BM X 1 TODAY.
[2019-11-04 19:15] VITALS: BP 112/64
--- NOTE | 2019-11-04 22:38 | NUR ---
ASSUMED CARE AT 1930. PATIENT RESTING IN BED. ASSISTED WITH TURNS. O2 3L/NC. VOICE RASPY BUT UNDERSTANDABLE. TAKES PILLS WHOLE WITH WATER. CHOCOLATE PUDDING FOR HS SNACK. SHUNT TO RUE WITH POSITIVE BRUIT AND THRILL. SOA WITH EXERTION. C/O SOA AT 2200, WAS 97% OXYGEN TUBING READJUSTED, AND HE FELT BETTER. HOURLY ROUNDS CONTINUE. BED ALARM ON. CALL LITE IN REACH.
--- NOTE | 2019-11-05 05:11 | NUR ---
HAS NOT REALLY SLEPT MUCH DURING THIS SHIFT. AROUND 2300 STILL C/O SOA. RT CALLED, GAVE BREATHING TREATMENT WITH SOME RELIEF. PATIENT WAS PURSING HIS LIPS, BUT WAS NOT FORCEFULLY EXHALING, WITH THE END RESULT OF NOT BLOWING OFF ENOUGH CO2. SPO2 96-97. REINFORCED PURSED LIP BREATHING AND COMPLETELY EXHALING WITH EACH BREATH. AFTER ABOUT 5 MINUTES PATIENT STATES FEELING BETTER. PATIENT STATES THAT HE CANNOT BREATHE ON HIS SIDE, AND HAS REFUSED TO TURN. HE LIKES HIS LEGS UP BECAUSE HE DOES NOT SLIDE DOWN IN BED. O2 WAS INCREASED TO 4L/NC PER RT WITH BREATHING TREATMENT. RT REASSESSED PATIENT AROUND MIDNIGHT, NO FURTHER RECOMMENDATIONS. ALSO GIVEN ICE CHIPS FOR C/O HOARSE VOICE, WHICH IS FROM [place] IN 2015. FREQUENT OBSERVATION THROUGH REST OF SHIFT. HE STATES HE IS BREATHING BETTER. MEDICATED FOR WRIST PAIN WITH RELIEF. BED ALARM ON. CALL LITE IN REACH.
[2019-11-05 07:43] LABS: HEMATOCRIT 24.6 % (42.0-52.0); HEMOGLOBIN 7.8 gm/dL (14.0-18.0); MCH 28.9 pg (26.0-34.0); MCHC 31.7 g/dL (28.0-37.0); MPV 8.3 fl. (7.2-11.1); RBC 2.71 mil/uL (4.50-6.00); RDW-CV 18.8 % (10.5-14.5); WBC 6.7 thou/uL (4.0-11.0)
[2019-11-05 07:54] VITALS: BP 112/79
[2019-11-05 07:55] LABS: ALBUMIN 2.7 g/dL (3.4-5.0); CALCIUM 8.6 mg/dL (8.5-10.1); CREATININE 4.7 mg/dL (0.6-1.3); POTASSIUM 4.9 mmol/L (3.5-5.1)
[2019-11-05 17:00] LABS: HEMATOCRIT 27.6 % (42.0-52.0); HEMOGLOBIN 8.6 gm/dL (14.0-18.0); MCH 29.1 pg (26.0-34.0); MCHC 31.2 g/dL (28.0-37.0); MCV 93.3 fL (80.0-100.0); MPV 8.8 fl. (7.2-11.1); NUCLEATED RBCS 0 /100WBC; RBC 2.96 mil/uL (4.50-6.00); RDW-CV 18.7 % (10.5-14.5); WBC 9.2 thou/uL (4.0-11.0)
[2019-11-05 17:01] LABS: PLATELET COUNT* 382 thou/uL (150-400)
[2019-11-05 17:38] LABS: ALBUMIN 3.2 g/dL (3.4-5.0); CALCIUM 8.9 mg/dL (8.5-10.1); CREATININE 5.2 mg/dL (0.6-1.3); TOTAL BILIRUBIN 0.5 mg/dL (<0.1-1.0); TOTAL PROTEIN 7.7 g/dL (6.4-8.2)
[2019-11-05 17:40] LABS: POTASSIUM 5.9 mmol/L (3.5-5.1)
[2019-11-05 17:53] LABS: ABSOLUTE LYMPHOCYTES 1.2 thou/uL (0.8-5.3); ABSOLUTE MONOCYTES 0.6 thou/uL (0.0-1.2); ABSOLUTE NEUTROPHILS 7.4 thou/uL (1.6-8.1); ANISOCYTOSIS 1+; MACROCYTES Occasional; PLATELET ESTIMATE INCREASED
[2019-11-05 17:54] LABS: POLYCHROMASIA Occasional
--- NOTE | 2019-11-05 18:51 | NUR ---
PT A&OX3 C/O SOA. NOC SHIFT REPORTS THIS PT DID NOT SLEEP MOST OF NIGHT. EDEMA NOTED TO R ARM UPON ASSUMING CARE OF THIS PT. PT BEGAN SHIFT ON 4L BY NC. CXR THIS SHIFT RESULTS PULMONARY EDEMA, PHYSICIAN AWARE. FLUID RESTRICTION OF [address] BOLANOS. PO PREDNISONE ORDERED WELL AND ADDITIOTNAL LABS. RT CONTACTED WITH REVISED DUONEB ORDER AND PRN ORDER FOR BIPAP. PT O2 BUMPED TO 6L DIRECTED. PT FOUND TO BE IN DISTRESS BY RT AND BIPAP APPLIED AT APPROX 1645. PT UPDATED BY PHONE. 1650 DR BOLANOS UPDATED BY PHONE. NEPHROLOGY CONTACTED REGARDING THIS PT AND DIALYSIS SESSION HAS BEEEN ARRANGED FOR THIS EVENING TO RELIEVE FLUID OVERLOAD. PT TO CONTINUE REGULAR DIALYSIS SCHEDULE TOMORROW. CRITICAL LACTIC OF 5.4 REPORTED TO PHYSICIAN XEROX MACHINE ASSEMBLER. 1900, MORTGAGE LOAN COORDINATOR AT PT BEDSIDE. PT RESTS IN ROOM WITH STEVE LIGHT IN REACH. WILL CONTINUE TO MONITOR.
[2019-11-05 22:00] VITALS: BP 119/63
--- NOTE | 2019-11-05 22:37 | NUR ---
PT DIALYSIS COMPLETED THIS EVENING, 3L TAKEN OFF PER DIALYSIS NURSE. PT NODS HEAD YES WHEN ASKED IF HE CAN BREATHE A LITTLE EASIER. DRSG INTACT TO BELLA DIALYSIS FISTULA, R ARM REMAINS EDEMATOUS. BIPAP ON AND OPERATING. HS ACCUCHECK 94. NSG SUP NOTIFIED OF NEED FOR IV TO ADMINISTER ABX. PO MEDS GIVEN WITHOUT DIFFICULTY. WILL CONTINUE TO MONITOR AND PROVIDE CARES NEEDED.
--- NOTE | 2019-11-06 05:26 | NUR ---
PT SLEPT FAIRLY WELL OVERNIGHT WITH BIPAP AFTER DIALYSIS FINISHED. NSG SUP PLACED IV LEFT EJ SL, ABX GIVEN ORDERED. HS ACCUCHECK 94. R ARM REMAINS EDEMATOUS, DRSG TO DIALYSIS FISTULA CHANGED WHILE THIS NURSE AT [facility]UNCH DUE TO OOZING PER OTHER RN-DRSG CDI AT THIS TIME. PT USING CALL LITE, REQUESTING BIPAP MASK REMOVED AND O2 NC PLACED ON PT 4L-SAT 95%. AFTER A SHORT TIME PT USING CALL LITE TO REQUEST BIPAP MASK PLACED BACK ON HE FEELS BREATHING BECOMING MORE DIFFICULT. BIPAP ON AND SATS 96% PT TURNED AND REPOSITIONED HE WOULD ALLOW FOR SKIN CARE AND COMFORT. AM LABS. CALL LITE IN EASY REACH, BED ALARM ON FOR SAFETY.
[2019-11-06 06:50] LABS: ABSOLUTE LYMPHOCYTES 0.3 thou/uL (0.8-5.3); ABSOLUTE MONOCYTES 0.2 thou/uL (0.0-1.2); ABSOLUTE NEUTROPHILS 4.9 thou/uL (1.6-8.1); BASOPHILS 0.8 %; EOSINOPHILS 0.1 %; HEMATOCRIT 24.9 % (42.0-52.0); LYMPHOCYTES 6.1 %; MCH 29.4 pg (26.0-34.0); MCHC 32.3 g/dL (28.0-37.0); MCV 91.3 fL (80.0-100.0); MONOCYTES 3.6 %; MPV 8.5 fl. (7.2-11.1); NUCLEATED RBCS 0 /100WBC; POLYS 89.4 %; RBC 2.73 mil/uL (4.50-6.00); RDW-CV 18.5 % (10.5-14.5); WBC 5.5 thou/uL (4.0-11.0)
[2019-11-06 06:51] LABS: PLATELET COUNT* 269 thou/uL (150-400)
[2019-11-06 06:59] LABS: ALBUMIN 2.8 g/dL (3.4-5.0); CALCIUM 8.7 mg/dL (8.5-10.1); PHOSPHORUS* 4.2 mg/dL (2.5-4.9); TOTAL BILIRUBIN 0.4 mg/dL (<0.1-1.0); TOTAL PROTEIN 7.8 g/dL (6.4-8.2)
[2019-11-06 08:10] VITALS: BP 132/74
--- NOTE | 2019-11-06 18:04 | NUR ---
PT A&OX4 VSS. IV ACCESS TO L EJ, DRESSING C/D/I. PT ACCUCHECK, INSULIN ADMINISTERED INDICATED. PT ON 3L O2 BY BERTHA, DENIES SOA. NO ACUTE DISTRESS NOTED. EDEMA NOTED TO BELAL, PRESENT UPON ASSUMING CARE AT BEGINNING OF SHIFT. PT UP MAX ASSIST W/GAIT BELT AND WALKER TO TRANSFER. PT EDUCATED REGARDING FLUID RESTRICTION. PT TO DIALYSIS TODAY REGULARLY SCHEDULED. PT COMPLETED THERAPIES PRIOR TO LEAVINGN UNIT FOR DIALYSIS. [facility] CONTACTED FACILITY FOR PT UPDATE AND INFO REGARDING FUTURE DC PLANS. CAN BE REACHED AT [phone] FOR COORDINATION OF DC PLAN. PT RESTING IN ROOM, HOB ELEVATED AND CALL LIGHT IN REACH. WILL CONTINUE TO MONITOR.
[2019-11-06 19:50] VITALS: BP 101/62
--- NOTE | 2019-11-07 02:27 | NUR ---
ASSUMED CARE @ 1939-.AWAKE IN BED W/ HOB UP. ON HIS TABLET.02 3L/NC. BED ALARM PUT ON @ 1939.SALINE LOCK LEFT JUGULAR AREA W/ GOOD BLOOD RETURN @ 1999 & FLUSHES GOOD.ON HOURLY ROUNDS.STRAP CUTTING MACHINE OPERATOR doing ODD HOUR ROUNDS.
--- NOTE | 2019-11-07 05:15 | NUR ---
SLEPT LATE @ 0000- & SLEEPING GOOD ALL NIGHT.TOOK ALL ERICK.PUDDING HS SNACK.ORAL FLUIDS LIMITED.
[2019-11-07 06:42] LABS: HEMATOCRIT 21.2 % (42.0-52.0); MCH 28.8 pg (26.0-34.0); MCHC 31.8 g/dL (28.0-37.0); MCV 90.5 fL (80.0-100.0); MPV 7.9 fl. (7.2-11.1); RBC 2.34 mil/uL (4.50-6.00); RDW-CV 18.1 % (10.5-14.5); WBC 5.8 thou/uL (4.0-11.0)
[2019-11-07 06:49] LABS: HEMOGLOBIN 6.7 gm/dL (14.0-18.0)
[2019-11-07 06:54] LABS: CALCIUM 8.4 mg/dL (8.5-10.1); CREATININE 2.9 mg/dL (0.6-1.3); POTASSIUM 3.4 mmol/L (3.5-5.1)
--- NOTE | 2019-11-07 07:58 | NUR ---
LAB CALLED @ 0647 FOR CRITICAL RESULT FOR HGB-6.7-SENT MESSAGE TO YOU CALL MD @ 0701.DR GOULD SENT NOTE @ 0702- THAT HE GOT THE MESSAGE FOR LOW HGB.
[2019-11-07 08:00] VITALS: BP 112/63
--- NOTE | 2019-11-07 18:33 | NUR ---
AM ASSESSMENT AND VITAL SIGNS COMPLETED DOCUMENTED. PT HAS BEEN PLEASANT AND COOPERATIVE. PT WORKED WITH ALL THERPIES, NO DIALYSIS TODAY. PT HAS BEEN COMPLIANT WITH THE FLUID RESTRICTION THIS SHIFT. FALL PRECAUTIONS AND HOURLY ROUNDING CONTINUE.
--- NOTE | 2019-11-07 20:15 | NUR ---
ASSISTED TO BEDSIDE COMMODE WITH CGA, GAITBELT, WALKER, CUEING. HAD A LARGE SOFT UNFORMED BM. PATIENT DOES OWN JEYSON CARE. TOOK MEDICATIONS WHOLE ALL AT ONCE WITH WATER. LEFT EXTERNAL JUGULAR SALINE LOCK INTACT WITHOUT EDEMA OR S/S OF INFECTION. 02 NASAL CANNULA AT 3 LITERS. SHORTNESS OF BREATH WITH EXERTION. HAS A SOFT VOICE. CALL LIGHT WITHIN REACH. SNACK PROVIDED.
[2019-11-07 20:33] VITALS: BP 126/69
--- NOTE | 2019-11-08 05:27 | NUR ---
RESTED ON/OFF. TYLENOL GIVEN FOR COMPLAINT OF LEFT WRIST PAIN WITH RELIEF. HOURLY ROUNDING IN PROGRESS.
[2019-11-08 07:33] VITALS: BP 114/67
[2019-11-08 08:34] LABS: HEMOGLOBIN 7.4 gm/dL (14.0-18.0); MCH 29.7 pg (26.0-34.0); MCHC 32.1 g/dL (28.0-37.0); MCV 92.3 fL (80.0-100.0); MPV 7.9 fl. (7.2-11.1); RBC 2.49 mil/uL (4.50-6.00); RDW-CV 19.2 % (10.5-14.5); WBC 6.6 thou/uL (4.0-11.0)
[2019-11-08 08:48] LABS: ALBUMIN 2.8 g/dL (3.4-5.0); CALCIUM 8.6 mg/dL (8.5-10.1); PHOSPHORUS* 2.4 mg/dL (2.5-4.9); POTASSIUM 3.5 mmol/L (3.5-5.1)
[2019-11-08 08:49] LABS: CREATININE 4.6 mg/dL (0.6-1.3)
--- NOTE | 2019-11-08 14:39 | NUR ---
Team conference held yesterday. SW called pt to review team conference summary and plan for reteam next Tuesday. Pt did not answer so SW left detailed message requesting call back with any questions or comments. SW to continue to follow to assist with safe dc planning.
--- NOTE | 2019-11-08 16:45 | NUR ---
ASSUMMED CARE OF PT AT 0730, PT ALERT AND ORIENTED, PT TRANSFERS WITH ASSIST OF 1, GB WALKER, IV PATENT IN LEFT JUGULAR, PT C/O PAIN IN RIGHT KNEE, MEDICATED PER ORDER, RUE EDEMATOUS, US ORDERED BUT AWAITING PT TO COMPLETE DIALYSIS, PT IN DIALYSIS THIS PM, SPOUSE CONCERNED ABOUT PT HOARSENESS AND REQUESTING TESTING BEING DONE, PHYSICIAN DISCUSSED WITH AND STATED THAT PT HAS APPT SCHEDULED IN NOVEMBER WITH ENT PHYSICIAN. PARTICIPATED IN ALL THERAPIES, HOURLY ROUDNING COMPLETED, ASSESSMENT COMPLETE WILL CONTINUE TO MONITOR.
[2019-11-08 20:00] VITALS: BP 122/68
--- NOTE | 2019-11-09 05:22 | NUR ---
PT A&O, VSS ON 2-3L O2 BY NC. MEDS GIVEN ORDERED. UP TO BSC WITH MODERATE ASSIST. NO C/O PAIN. PT REPORTED HIS IV GOT PULLED, THEN MENTIONED CHEST DISCOMFORT. EKG DONE AND NEW IV INSERTED. XANAX GIVEN FOR ANXIETY. PT SLEEPING THROUGH THE NIGHT ON HOURLY ROUNDINGS. [facility].
[2019-11-09 08:00] VITALS: BP 123/68
--- NOTE | 2019-11-09 10:55 | EKG ---
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[id number] Requested By: Order Number: [id number] Reading MD: Eugenio Alexandra Measurements Intervals [place] Rate: 81 P: 26 DE: 163 QRS: -29 QRSD: 127 T: 115 QT: 428 QTc: 497 Interpretive Statements Sinus rhythm nonspecific st changes late transition left axis Compared to ECG 10/27/2019 17:06:03 No significant changes Electronically Signed On 11-09-2019 10:53:42 CDT by Eugenio Alexandra [email or web address] <ELECTRONICALLY SIGNED> By: Eugenio Alexandra MD, FACMeghan 11/09/19 1053 38 Eugenio Alexandra MD, [facility] /EPI
--- NOTE | 2019-11-09 18:57 | NUR ---
ASSUMMED CARE OF PT AT 0730, PT ALERT AND ORIENTED, PT TRANSFERS WITH ASSIST OF 1, GB WALKER, NO VOID THIS SHIFT, PT RIGHT ARM REMAINS EDEMATOUS, VASCULAR HERE TO SEE PT AND WILL DO FISTULOGRAM NEXT WEEK, GD BRUIT/THRILL IN RIGHT ARM FISTULA, EATING WELL, FLUID RESTRICTION MAINTAINED, C/O WRIST PAIN, MEDICATED PER ORDER, PARTICIPATED IN ALL THERAPIES, HOURLY ROUNDING COMPLETED, ASSESSMENT COMPLETE, WILL CONTINUE TO MONITOR.
[2019-11-09 20:28] VITALS: BP 146/72
--- NOTE | 2019-11-10 05:15 | NUR ---
PATIENT SLEPT WELL DURING THIS SHIFT. PT ASSISTED WITH TURNS. PT DENIES PAIN. PT WITH ANTIBIOTICS INFUSING IN LT UPPER ARM PER DR ORDER. PT ASSISTED FROM CHAIR TO BED WITH USE OF GAIT BELT AND PIVOT. FREQUENTLY USED ITEMS AND CALL LIGHT WITHIN REACH. SIDERAILS UPX3 AND BED ALARM ON. WILL CONTINUE TO MONITOR.
[2019-11-10 08:30] VITALS: BP 145/70
[2019-11-10 09:58] LABS: HEMATOCRIT 25.6 % (42.0-52.0)
[2019-11-10 10:11] LABS: ALBUMIN 2.8 g/dL (3.4-5.0); CALCIUM 8.8 mg/dL (8.5-10.1); CREATININE 5.1 mg/dL (0.6-1.3); POTASSIUM 4.4 mmol/L (3.5-5.1)
--- NOTE | 2019-11-10 17:09 | NUR ---
ALERT AND ORIENTED X4. UP WITH 1 ASSIST, GAIT BELT, AND WALKER. NO C/O PAIN. CURRENTLY IN DAILYSIS. RIGHT ARM REMAINS SWOLLEN. BRUITT AND THRILL HEARD FROM FISTULA AREA RIGHT ARM. IV SALINE LOCKED TO LEFT ARM. REMAINS ON 1500ML FLUID RESTRICTION. VOICE REMAINS HOARSE SOUNDING. REMAINS ON O2 AT 3L/NC. C/O TINGLING TO BILATERAL HANDS. USES CALL LIGHT WITHIN REACH. FALL PRECAUTIONS IN PLACE. BED ALARM AND CHAIR ALARM USED.
[2019-11-10 20:30] VITALS: BP 114/57
--- NOTE | 2019-11-11 01:19 | NUR ---
ASSUMED CARE @ 1911-11/09-SAT.BEING TRANSFERED ON HIS BED FROM DIALYSIS TO HIS ROOM @ THIS TIME.HOB UP.O2 ON @ 3L/NCBED ALARM PUT ON @ 1911.DINNER SERVED BY SPECIALTY TRIMMER.ORAL FLUIDS RESTRICTED TO 1L/DAY.SALINE LOCK LUE-UNABLE TO FLUSH.CLOTTED. ATTEMPTED TO RE-INSERT BY 2 RN'S & NURSING CABIN WORKER.OTHER RN USED VEIN FINDER BUT UNABLE TO RE-START.AT 2239,DR LAI-RACHID DR-USED ULTRASOUND & ABLE TO START W/ #20 GAUGE NEEDLE LEFT ANTECUBITAL AREA.IV ROCEPHIN INFUSED LATE @ 2245.IV VANCOMYCIN INFUSED LATE @ 2329.SALINE LOCK HAS GOOD BLOOD RETURN.ON HOURLY ROUNDS.SPECIALTY TRIMMER DOING ODD HOUR ROUNDS.
--- NOTE | 2019-11-11 05:47 | NUR ---
SLEPT LATE @ -SUN & SLEEPING GOOD ALL NIGHT.TOOK ALL ERICK.PUDDING HS SNACK.
[2019-11-11 09:30] VITALS: BP 105/61
--- NOTE | 2019-11-11 17:58 | NUR ---
ALERT AND ORIENTED. UP WITH 1 ASSIST, GAIT BELT AND WALKER. DENIES NEED FOR PAIN MEDICATION. IV PATENT LEFT ARM. HAS FISTULA FOR DIALYSIS TO RIGHT UPPER ARM. RIGHT ARM REMAINS SWOLLEN AND DR AND DIALYSIS NURSE AWARE. O2 SAT ON 3L/NC OF O2 REMAINS GREATER THAN 90%. CONTINUES TO BE ON 1000ML FLUID RESTRICTION /24HOURS. CONTINUES ON IV ANTIBIODICS. USES CALL LIGHT WHEN NEEDING ASSIST. FALL PRECAUTIONS IN PLACE. BED ALARM AND CHAIR ALARM USED.
[2019-11-11 19:32] VITALS: BP 119/67
--- NOTE | 2019-11-12 01:50 | NUR ---
ASSUMED CARE @ 1919-11/10-SUN.AWAKE IN BED W/ HOB UP & RUE UP ON PILLOW. WATCHING TV.BED ALARM PUT ON @ 1919.02 ON @ 2L/NC.ORAL FLUIDS LIMITED. SALINE LOCK LEFT AC-HAS NO BLOOD RETURN @ 2099 BUT FLUSHED GOOD.SLEEPING @ -11/11-MON.BUT AWAKE @ 0100.FOUND SHAKING HANDS.CLAIMS BOTH WRISTS ARE ACHING.SEE PAIN MANAGEMENT @ 0129.O2 SAT @ 0-88 TO 89%.O2 INCREASED TO 3L/NC.APPEARS ANXIOUS ALSO.PRN XANAX 0.25 MG ORAL GIVEN @ 0132.PINK BEHIND EARS.PADDED O2 TUBING BEHIND EARES @ 0134.ON HOURLY ROUNDS.
--- NOTE | 2019-11-12 05:17 | NUR ---
SLEEPING @ 0000-11/11-TUESDAY & 0230-AFTER TAKING PRN TYLENOL & PRN XANAX @ 0132.TOOK ERICK PUDDING X3 DURING NIGHT.ASSIST OF 2 PERSONS TO USE BSC @ 0400. HAD EXTRA LARGE BM X1.ABLE TO DO TOILET HYGIENE AFTER BM.FINALLY SLEEPING @ 0500.
[2019-11-12 08:57] VITALS: BP 111/56
[2019-11-12 09:10] LABS: INR 1.3; PROTIME 13.3 Seconds (9.20-11.50)
--- NOTE | 2019-11-12 18:47 | NUR ---
ALERT AND ORIENTED X4. UP WITH 1 ASSIST, GAIT BELT AND WALKER. DENIES NEED FOR PAIN MEDICATION. FISTULA RIGHT ARM HAS BRUIT AND THRILL. RIGHT ARM REMAINS SWOLLEN. FISTULA GRAM SCHEDULED FOR [facility]. AT [address] REMAINS ON O2 AT 3L/NC TO KEEP O2 SAT IN 90'S. HAS IV IN LEFT AC. REMAINS ON 100ML FLUID RESTRICTION. USING CALL LIGHT WHEN NEEDING ASSIST. DOES NOT VOID, ON DIALYSIS. FALL PRECAUTIONS IN PLACE. BED ALARM AND CHAIR ALARM USED.
[2019-11-12 19:15] VITALS: BP 114/61
--- NOTE | 2019-11-13 01:56 | NUR ---
ASSUMED CARE AT 1930. PATIENT RESTING IN CHAIR UNTIL AROUND 2199. PATIENT STATES THAT HE PREFERRED THE RECLINER UNTIL THEN BECAUSE HE WAS BREATHING BETTER IN THE RECLINER. O2 3L/NC. RT CALLED TO PUT PATIENT ON BIPAP AT HS, SHE STATED THAT HE ONLY GOES ON IT IF SOA. NO SOA NOTED. SPO2 CHECKED WHILE SLEEPING, WAS 97-98% ON 3L. TAKES PILLS WHOLE WITH WATER. IV TO LT AC INTACT. [facility] HAS POSITIVE THRILL AND BRUIT. GIVEN TWO CHOCOLATE PUDDINGS FOR HS SNACK. REFUSES TURNS HE STATES HE BREATHES BETTER IN SEMI JACOME'S POSITIO. HOURLY ROUNDS CONTINUE. BED ALARM ON. CALL LITE IN REACH.
--- NOTE | 2019-11-13 05:31 | NUR ---
SLEPT MOST OF THE NIGHT. NO SOA NOTED. NO C/O PAIN. NO NEED FOR BIPAP THIS SHIFT. O2 MAINTAINED AT 3L/NC. HOURLY ROUNDS CONTINUE. BED ALARM ON. CALL LITE IN REACH.
[2019-11-13 07:27] LABS: HEMATOCRIT 25.3 % (42.0-52.0)
[2019-11-13 07:37] LABS: INR 1.4; PROTIME 13.8 Seconds (9.20-11.50)
[2019-11-13 07:51] LABS: ALBUMIN 2.7 g/dL (3.4-5.0); CALCIUM 8.9 mg/dL (8.5-10.1); MAGNESIUM 2.1 mg/dL (1.8-2.4); POTASSIUM 5.9 mmol/L (3.5-5.1)
[2019-11-13 07:52] LABS: CREATININE 6.8 mg/dL (0.6-1.3)
[2019-11-13 08:00] VITALS: BP 114/61
--- NOTE | 2019-11-13 11:01 | NUR ---
SW called and spoke with pt in preparation for team conference tomorrow. Pt said that "if he can't walk, he can't come home". Pt thinks that pt should be retested for COVID because of pt long standing pnuemonia. SW said that SW will present information to team and SW will follow up with pt after team conference. SW to continue to follow to assist with safe dc planning.
--- NOTE | 2019-11-13 16:46 | NUR ---
ASSUMMED CARE OF PT AT 0730, PT ALERT AND ORIENTED, PT TRANSFERS WITH ASSIST OF 1, GB WALKER, C/O FATIGUE THIS SHIFT, DENIES PAIN, RIGHT ARM REMAINS SWOLLEN, O2 ON AT 3L, GD BRUIT AND THRILL TO SHUNT RIGHT UPPER EXTREMITY, PT TO HAVE FISTULAGRAM TOMORROW AM, NPO AFTER MIDNIGHT, SALINE LOCK PATENT IN LEFT AC, DIALYSIS THIS PM, PARTICIPATED IN ALL THERAPIES, HOURLY ROUNDING COMPLETED, ASSESSMENT COMPLETE, WILL CONTINUE TO MONITOR.
[2019-11-13 17:00] VITALS: BP 116/75
[2019-11-13 19:15] VITALS: BP 138/76
--- NOTE | 2019-11-13 20:00 | NUR ---
IN SEMI-JACOME'S IN BED. 02 NASAL CANNULA AT 3 LITERS. DRESSING OVER RIGHT ARM SHUNT DRY/INTACT. SHORTNESS OF BREATH WITH EXERTION. PATIENT REMINDED OF NPO STATUS AFTER MIDNIGHT. SNACK PROVIDED. CALL LIGHT WITHIN REACH.
--- NOTE | 2019-11-14 04:44 | NUR ---
RESTED ON/OFF. NPO FOR FISTULAGRAM. HOURLY ROUNDING IN PROGRESS.
[2019-11-14 06:36] LABS: INR 1.4; PROTIME 14.4 Seconds (9.20-11.50)
[2019-11-14 08:00] VITALS: BP 115/64
--- NOTE | 2019-11-14 10:56 | OP ---
[address] [address] OPERATIVE REPORT Name: BING ALFONSO Room: [address] IN M.R.#: [id number] Admission: 10/31/19 Attend Phys: Shay Estrada MD Discharge: Date of : 46 Report #: [id number] THIS REPORT FOR: //name// cc: Tanya Kramer Maggie M. DO ~ THIS REPORT FOR: //name// CC: Tanya Estrada DATE OF SERVICE: 11/14/2019 PREOPERATIVE DIAGNOSES: 1. End-stage renal disease. 2. Elevated pressures with bleeding through AV fistula, right upper extremity. POSTOPERATIVE DIAGNOSES: 1. End-stage renal disease. 2. Elevated pressures with bleeding through AV fistula, right upper extremity. PROCEDURES: 1. Right upper extremity fistulogram. 2. Drug-coated balloon angioplasty, central venous stenosis. 3. Central venogram. FINDINGS 1. Arterial anastomosis, widely patent. 2. Access another fistula, widely patent. 3. Basilic vein outflow, widely patent. 4. Central venous stenosis identified at the confluence of the jugular and subclavian veins. 5. After intervention, there is widely patent flow through the stenotic area. SURGEON: Zach Bocanegra MD SKIP MINER BLASTING: LUCERO Devi COMPLICATIONS: None. ESTIMATED BLOOD LOSS: 10 mL. 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 He has an AV fistula in right upper extremity. This appears to be a basilic vein transposition. He has been having elevated pressures of dialysis with bleeding. We have been asked to perform an urgent fistulogram to fix these issues around to dialyze. Informed [address] [address] OPERATIVE REPORT Name: BING ALFONSO Room: [address] IN [facility].#: [id number] Admission: 10/31/19 Attend Phys: Shay Estrada MD Discharge: Date of : 46 Report #: [id number] consent was obtained from the patient with risks including but not limited to bleeding, infection, need for further surgery, pain, , heart attack, stroke and steal syndrome. The patient understood these risks and was agreeable to proceed. DESCRIPTION OF PROCEDURE: The patient was taken to the angio suite, placed in supine position. After adequate sedation was initiated, right arm was prepped and draped in usual sterile fashion, timeout was performed. I accessed AV fistula without incident in an antegrade fashion using a micropuncture. I used Seldinger technique to exchange out for a MicroSheath. I performed fistulogram with findings as noted above. I performed reflux fistulogram by compressing the outflow to identify the arterial anastomosis. I then used Seldinger technique to upsize to the 7-Uzbek sheath. I carefully across the stenosis within the central venous structures using a Glidewire. After across the stenosis successfully, I angioplastied this area with an 8 mm balloon. There was still significant residual stenosis. I then chose to use a drug-coated balloon. I opened a 10 x 60 Lutonix balloon. I prepped the balloon according to technical programs manager's instructions. I advanced and placed it over the area of stenosis. I deployed the balloon for the recommended treatment length of time. Completion imaging showed still some residual stenosis in this area. I opened a 12 mm balloon and angioplastied this area with a 12 mm balloon as well. Completion imaging showed excellent result with much improved blood flow through this area. The patient's thrill was now no longer pulsatile. I removed the sheath, we placed a Monocryl stitch in the skin. There was no bleeding or hematoma. The patient tolerated the procedure well and was taken alert and awake to recovery room in good condition. Okay for the patient to use the fistula for dialysis. I would recommend a repeat fistulogram in 3 months. <ELECTRONICALLY SIGNED> By: Zach Bocanegra MD 11/14/19 1056 [id number] Bocanegra MD /nt
--- NOTE | 2019-11-14 11:13 | NUR ---
AM ASSESSMENT AND VITAL SIGNS COMPLETED DOCUMENTED. PT HAD A FISTULAGRAM WITH ANGIOPLASTY THIS AM. PT RETURNED TO ROOM FOLLOWING PROCEDURE, THERAPY RESUMED.
--- NOTE | 2019-11-14 16:05 | NUR ---
SW spoke with pt to review team conference summary and plan for pt to dc home with on Tuesday and offered family training on Tuesday. Pt expressed continued concern for pt fall risk, covid possibility because of long standing pneumonia, and pt care at home. But pt ultimately agreed to attend family training on Saturday 11/18 at 1 pm and will then determine pt able to dc home with or if alternate dc plan needs to be arranged. SW to continue to follow to assist with safe dc planning.
[2019-11-14 19:00] VITALS: BP 104/54
--- NOTE | 2019-11-15 03:01 | NUR ---
ASSUMED CARE @ 1944-.APPEARS SLEEPING IN RECLINER W/ O2 ON @ 3L/NC. CHAIR ALARM ALREAdy on @ 1944.HOB UP IN BED.BED ALARM PUT ON @ 2104.ORAL FLUIDS LIMITED.PRN THROAT LOZENGE ONE LOZENGE GIVEN @ 2219-PER PT'S REQUEST. 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
[2019-11-15 05:23] LABS: INR 1.5; PROTIME 14.8 Seconds (9.20-11.50)
--- NOTE | 2019-11-15 05:27 | NUR ---
SLEEPING @ 1945 WHILE IN RECLINER.THEN,SLEEPING SINCE 2319 & SLEPT FROM 0200. AWAKE ONCE @ 0000-11/14--ON HIS TABLET.TOOK PUDDINGS X4 HS SNACKS.
[2019-11-15 05:38] LABS: ALBUMIN 2.7 g/dL (3.4-5.0); CALCIUM 8.8 mg/dL (8.5-10.1); PHOSPHORUS* 2.7 mg/dL (2.5-4.9)
[2019-11-15 05:39] LABS: CREATININE 5.6 mg/dL (0.6-1.3)
[2019-11-15 08:00] VITALS: BP 108/60
--- NOTE | 2019-11-15 17:59 | NUR ---
AN ASSESSMENT AND VITAL SIGNS COMPLETED DOCUMENTED. PT IS ABLE TO TRANSFER WITH MIN ASSIST, AMBULATES SHORT DISTANCES WITH A WALKER AND FREQUENT REST PERIODS TO CATCH HIS BREATH. PT COMPLETED DIALYSIS THIS AFTERNOON, TOLERATED WELL AND HAD 3 LITERS REMOVED. FALL PRECAUTIONS AND HOURLY ROUNDING CONTINUE.
[2019-11-15 20:00] VITALS: BP 97/64
--- NOTE | 2019-11-16 01:48 | NUR ---
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
[2019-11-16 04:47] LABS: INR 1.5; PROTIME 15.5 Seconds (9.20-11.50)
--- NOTE | 2019-11-16 05:08 | NUR ---
AWAKE @ 0200 & C/O SOB.O2 PRONGS IN PLACE ON PT'S NOSE.O2 SAT-92 TO 99%.SLEPT LATE @ 0400 & SLEEPING GOOD AFTER 0400.TOOK ERICK.PUDDINGS X3 HS SNACKS.
[2019-11-16 07:00] VITALS: BP 108/66
--- NOTE | 2019-11-16 14:32 | NUR ---
RECEIVED REPORT FROM BARNEYRN AT 1230. PATIENT IN CHAIR SLEEPING. CHAIR ALARM ON AND CALL LIGHT IN REACH.
--- NOTE | 2019-11-16 16:24 | NUR ---
Pt called and expressed continued concern for pt return home and requested SW to fax referral for SNF to [facility]. SW spoke with pt who said he wants to dc home. SW requested pt to attend family training on Tuesday and to keep dc options open. After family training on Tuesday, pt, pt and team will discuss safe dc planning and determine if pt ready to dc home or if possible for more rehab days for dc home or if SNF is necessary. SW to continue to follow.
--- NOTE | 2019-11-16 19:01 | NUR ---
PATIENT A&OX 4. UP WITH ASSISTX1, WALKER AND GAIT BELT. PATIENT IS ON DIALYSIS WITH RUE FISTULA. ARM IS SWOLLEN. PATIENT HAD 1 LARGE UNFORMED BM. PT ON FLUID RESTRICTION. PATIENT HAS NO URINE OUTPUT. CALL LIGHT IN REACH.
[2019-11-16 19:40] VITALS: BP 118/60; BP 176/76
[2019-11-17 04:55] LABS: HEMOGLOBIN 7.4 gm/dL (14.0-18.0)
[2019-11-17 05:00] LABS: INR 1.5; PROTIME 15.5 Seconds (9.20-11.50)
[2019-11-17 05:20] LABS: ALBUMIN 2.5 g/dL (3.4-5.0); CALCIUM 8.6 mg/dL (8.5-10.1); CREATININE 5.6 mg/dL (0.6-1.3); PHOSPHORUS* 2.9 mg/dL (2.5-4.9); POTASSIUM 4.9 mmol/L (3.5-5.1)
--- NOTE | 2019-11-17 05:36 | NUR ---
ASSUMED CARES AT 1920. ALERT AND ORIENTED. O2 4L NC. MIN ASSIST WITH GAIT BELT AND WALKER. ANURIA. BELLA FISTULA +/+. C/O ITCHINESS TO ARMS/LEGS. BENADRYL ORDER OBTAINED. TYLENOL GIVEN FOR ANKLE PAIN. THIS AM PT AGAIN FEELING SOA BUT PT HAD JUST RECEIVED NEB TX. O2 SATS 98%. XANAX GIVEN. SLEPT LITTLE. CALL LIGHT IN REACH AND BED ALARM ON.
[2019-11-17 07:00] VITALS: BP 96/60
[2019-11-17 20:32] VITALS: BP 160/64
[2019-11-18 04:22] LABS: HEMATOCRIT 26.1 % (42.0-52.0); HEMOGLOBIN 8.1 gm/dL (14.0-18.0); MCH 28.6 pg (26.0-34.0); MCHC 30.9 g/dL (28.0-37.0); MCV 92.6 fL (80.0-100.0); MPV 7.8 fl. (7.2-11.1); RBC 2.81 mil/uL (4.50-6.00); RDW-CV 19.1 % (10.5-14.5); WBC 5.2 thou/uL (4.0-11.0)
[2019-11-18 04:33] LABS: INR 1.6; PROTIME 16.3 Seconds (9.20-11.50)
[2019-11-18 04:48] LABS: CALCIUM 8.8 mg/dL (8.5-10.1); MAGNESIUM 1.8 mg/dL (1.8-2.4); POTASSIUM 4.5 mmol/L (3.5-5.1)
[2019-11-18 04:50] LABS: CREATININE 3.3 mg/dL (0.6-1.3)
[2019-11-18 07:30] VITALS: BP 102/57
[2019-11-18 19:00] VITALS: BP 112/64
[2019-11-19 02:00] VITALS: BP 108/63
--- NOTE | 2019-11-19 05:30 | NUR ---
PATIENT HAS SLEPT OFF AND ON DURING THE NIGHT. VSS ON 3L 02 VIA NASAL CANNULA. PATIENT WOKE UP AND HAD C/O CHEST PAIN 6/10 AND SOA. EKG DONE AND AND PAN PUSHER NOTIFIED. NEW ORDER GIVEN FOR PORTABLE CHEST X-RAY. RESPIRATORY ALSO CALLED AND PATIENT GIVEN BREATHING TREATMENT. PATIENT VS-108/63, PULSE-87, RESP-22 AND SPO2 100% ON 3L 02 VIA NASAL CANNULA. PATIENT GIVEN XANAX AND TYLENOL. PATIENT FEELING MUCH BETTER AFTER BREATHING TREATMENT GIVEN FROM RESPIRATORY. PATIENT SITTING IN SEMI FOWLERS POSITION AND COMFORTABLE AT THIS TIME. DIALYSIS FISTULA IN RIGHT UPPER ARM-GOOD THRILL AND BRUIT NOTED. FALL PRECAUTIONS IN PLACE AND HOURLY ROUNDS MADE. WILL CONTINUE WITH THERAPY AND NURSING TO MONITOR.
[2019-11-19 07:29] LABS: HEMATOCRIT 24.3 % (42.0-52.0); HEMOGLOBIN 7.6 gm/dL (14.0-18.0); MCHC 31.4 g/dL (28.0-37.0); MCV 92.2 fL (80.0-100.0); MPV 8.6 fl. (7.2-11.1); RBC 2.63 mil/uL (4.50-6.00); WBC 5.9 thou/uL (4.0-11.0)
[2019-11-19 07:44] LABS: INR 1.8; PROTIME 18.1 Seconds (9.20-11.50)
[2019-11-19 07:47] LABS: ALBUMIN 2.4 g/dL (3.4-5.0); CALCIUM 8.8 mg/dL (8.5-10.1); MAGNESIUM 1.9 mg/dL (1.8-2.4); POTASSIUM 4.4 mmol/L (3.5-5.1); TOTAL BILIRUBIN 0.4 mg/dL (<0.1-1.0); TOTAL PROTEIN 7.5 g/dL (6.4-8.2)
[2019-11-19 07:53] VITALS: BP 100/69
[2019-11-19 07:54] LABS: CREATININE 5.6 mg/dL (0.6-1.3)
--- NOTE | 2019-11-19 10:44 | EKG ---
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
--- NOTE | 2019-11-19 17:15 | NUR ---
Pt dc on hold for medical stability reasons. SW called pt and discussed dc on hold for now; pt said she spoke with pt who also had told his he would not actually dc today. SW received call from [facility] and SW told admissions that pt dc on hold and SNF is back up plan if needed. [facility] admissions will need the date of the pt original covid 19 test. SW to continue to follow to assist with safe dc planning.
[2019-11-19 19:15] VITALS: BP 130/59; BP 148/61
--- NOTE | 2019-11-19 20:28 | NUR ---
PATIENT C/O SOA AT BEGINNING OF SHIFT. BREATHING TX GIVEN. WITH SOME RELIEF. MEDICAL DR NOTIFIED OF SOA, ABNORMAL LABS AND CXR RESULTS. ORDER TO NOTIFY RENAL DR OF PATIENT'S CONDITION AND C/O SOA. RENAL DR NOTIFIED AND NEW ORDER TO DO DIALYSIS TODAY. DIALYSIS DONE TODAY. AND 2.5L FLUID PULLED OFF. PATIENT STATED FEELING BETTER THIS AFTERNOON. HAS DRY DRESSING OVER FISTULA SITE. RIGHT ARM STILL REMAINS SLIGHTLY SWOLLEN. IRON MEDICATION GIVEN IN DIALYSIS TODAY. REMAINS ON O2 AT 3L/NC. USES CALL LIGHT WHEN NEEDING ASSIST. FALL PRECAUTIONS IN PLACE.
[2019-11-20 05:50] LABS: INR 2.2; PROTIME 22.1 Seconds (9.20-11.50)
[2019-11-20 06:04] LABS: ALBUMIN 2.7 g/dL (3.4-5.0); CALCIUM 9.2 mg/dL (8.5-10.1); CREATININE 5.3 mg/dL (0.6-1.3); PHOSPHORUS* 2.8 mg/dL (2.5-4.9); POTASSIUM 4.5 mmol/L (3.5-5.1)
--- NOTE | 2019-11-20 07:34 | NUR ---
PATIENT HAS SLEPT OFF AND ON DURING THE NIGHT BUT RESTLESS AT TIMES. VSS ON 3L 02 VIA NASAL CANNULA. NO C/O PAIN. PATIENT HAD C/O SLIGHT SOA AND RESPIRATORY GAVE BREATHING TREATMENT WHICH PATIENT STATED DID HELP. MEDICATIONS GIVEN ORDERED AND CHARTED. ASSESSMENT CHARTED. PATIENT UP WITH ASSIST X 1 TO THE BSC. NEW IV INSERTED IN LEFT HAND-SL. RIGHT UPPER ARM FISTULA HAS GOOD THRILL/BRUIT. PATIENT HAS BEEN ANURIC D/T ESRD. FALL PRECAUTIONS IN PLACE AND HOURLY ROUNDS MADE. WILL CONTINUE WITH THERAPIES AND NURSING TO MONITOR.
[2019-11-20 08:00] VITALS: BP 140/79
--- NOTE | 2019-11-20 17:13 | NUR ---
ASSUMMED CARE OF PT AT 0730, PT ALERT AND ORIENTED, TIRED THIS SHIFT, TRANSFERS WITH ASSIST OF 1 GB WALKER BUT VERY WOBBLY WITH TRANSFRES THIS PM, DENIES PAIN, TAKING FOOD AND MAINTAINING FLUID RESTRICTION, IN DIALYSIS THIS PM, DIALYSIS SHUNT IN RIGHT UPPER ARM , GD BRUIT/THRILL, PARTICIPATED IN ALL THERAPY, HOURLY ROUNDING COMPLETED, ASSESSMENT COMPLETE, WILL CONTINUE TO MONITOR.
[2019-11-20 19:00] VITALS: BP 100/62
--- NOTE | 2019-11-20 22:48 | NUR ---
PATIENT C/O DIFFICULTY BREATHING. PT AT 100% ON 4LITERS NASAL CANNULA, RESPERATIONS AT 22. PT ENCOURAGED TO 'SMELL THE ROSES/BLOW OUT THE CANDLE' TECHNIQUE AND BREATHING BECAME MORE CONTROLLED. XANAX AND TWO TYLENOL GIVEN. STAYED WITH PATIENT APPROX 20 MINUTES AND HE SAID HE FELT MUCH BETTER. LUNG SOUNDS CLEAR, DIMINISHED WITH NO CHANGES FROM 1999 ASSESSMENT. PT SAID HE WAS ASLEEP IN POSITION WHEN HE WOKE UNABLE TO BREATHE. CALLED FOR ASSISTANCE TO MOVE PT TO HIGH FOWLERS POSITION. PT SAID HE FELT BETTER AND THOUGHT HE WOULD BE FINE. WILL CONTINUE TO MONITOR.
--- NOTE | 2019-11-21 04:53 | NUR ---
PATIENT AWAKE OFF AND ON DURING THIS SHIFT. PT WOULD WAKE STATING HE COULD NOT BREATHE. PT ON O2 @ 4 LITERS PER NASAL CANNULA. PT GIVEN REASSURANCE AND ASSISTED WITH CONTROLLED BREATHING. PT ALSO GIVEN XANAX AND TYLENOL. SATS AND VITALS WNL. PT ABLE TO RETURN TO SLEEP EASILY. PT ASSISTED WITH REPOSITIONING. FREQUENTLY USED ITEMS AND CALL LIGHT WITHIN REACH. SIDERAILS UPX2 AND BED ALARM ON. WILL CONTINUE TO MONITOR.
[2019-11-21 05:54] LABS: INR 2.7; PROTIME 26.4 Seconds (9.20-11.50)
[2019-11-21 08:32] VITALS: BP 99/56
--- NOTE | 2019-11-21 08:43 | NUR ---
LATE ENTRY FOR 11/20/19 1400-PER FRED/,RN, PT.'S DOES NOT WANT PT.TO BE DISCHARGED TO HOME, WHENEVER HE IS DISCHARGED. SHE DOES NOT FEEL SHE CAN TAKE CARE OF HIM AT THIS TIME AND IS AFRAID HE WILL FALL. REFERRAL WAS MADE TO [facility] ON 11/18. FAXED COVID RESULTS TO FREYA/BOB VELAZQUEZ, PER FREYA'S REQUEST, AND THAT HE MAY BE READY FOR DISCHARGE OR TUESDAY.
--- NOTE | 2019-11-21 16:06 | NUR ---
ASSUMMED CARE OF PT AT 0730, PT ALERT AND ORIENTED, PT TRANSFERS WITH MIN ASSIST GB WALKER, UP IN CHAIR MOST OF SHIFT, DENIES PAIN, MAINTAINING FLUID RESTRICTION, PT C/O SOA X 1, PT REASSURED, O2 SAT 95% ON 3 L, TO DIALYSIS THIS PM, NO BM X 4 DAYS, DISCUSSED WITH PT AND HE IS HESITANT TO TAKE ANY ADDITIONAL MEDICATION UNTIL DIALYSIS IS OVER, SALINE LOCK PATENT TO LEFT HAND, DIALYSIS SHUNT HAS GD BRUIT AND THRILL, PARTICIPATED IN ALL THERAPIES, HOURLY ROUNDING COMPLETED, ASSESSMENT COMPLETE, WILL CONTINUE TO MONITOR.
[2019-11-21 17:00] VITALS: BP 96/53
--- NOTE | 2019-11-21 17:28 | NUR ---
Team conference held today. Pt dc on hold and now recommendations are for pt to dc to SNF when medically stable. CORY followed up with [facility] who are willing to accept pt for SNF at pr. Pending pt dialysis schedule finalized. Possibly dc if pt does not need dialysis everyday. CORY spoke with pt nurse Dara about dialysis and pt had dialysis today. Uncertain of dialysis plan at the moment and Dara had conversation with pt ; SW to follow up with pt tomorrow when medical plan/nephro recommendations are known. SW to continue to follow to assist with finalizing safe dc plan of SNF placement for possible if pt ready to dc.
[2019-11-21 20:34] VITALS: BP 91/58
--- NOTE | 2019-11-22 05:27 | NUR ---
PATIENT SLEPT WELL DURING THIS SHIFT BUT WOKE AROUND 2230 REQUESTING CHOCOLATE PUDDING. PT THEN C/O DIFFICULTY BREATHING. PT IS ON O2 @ 3LITERS PER NASAL CANNULA. PT WITH SATS AT 99%. PT MOVED UP IN BED AND REPOSITIONED; REASSURANCE GIVEN. AMBIEN 5MG PO GIVEN AT THIS TIME. PT SLEPT WELL THEN WOKE REQUESTING TO GET IN RECLINER. PT ASSISTED TO RECLINER WITH G.BELT, WALKER AND ASSIST OF TWO. PT WATCHED TV AND PLAYED ON IPAD FOR A COUPLE OF HOURS THEN REQUESTED TO GET BACK TO BED. PT BACK TO BED AND HAS BEEN ALSEEP SINCE. WILL CONTINUE TO MONITOR.
[2019-11-22 08:00] VITALS: BP 95/62
[2019-11-22 10:35] LABS: INR 2.9; PROTIME 28.6 Seconds (9.20-11.50)
--- NOTE | 2019-11-22 15:47 | NUR ---
SW called pt to discuss pt dc planning and status. SW explained that since pt was still needing dialysis everyday, pt was not able to dc to a facility due to the OP clinics not being able to accommodate daily dialysis as well as the SNF not certain pt was medically stable. Pt requested a referral be sent to [facility] also so SW faxed referral to [facility] and their admissions currently reviewing the referral. [facility] dialysis clinic is next to [facility] so their clinic would be reviewing information as well to determine if they could accept pt. Pt was upset and crying about pt possibly in pain and that she thought he needed ENT but then said she realizes now that pt is not strong enough to be able to withstand surgery at this time. SW to continue to follow to assist with SNF placement at dc. [facility] or [facility] both considering pt referral. CORY also spoke with Lashay at [facility] to inform of pt not returning tomorrow as not yet ready to dc medically.
--- NOTE | 2019-11-22 17:59 | NUR ---
AM ASSESSMENT AND VITAL SIGNS COMPLETED DOCUMENTED. PT WORKED WITH ALL THERAPIES, CONTINUES TO BE WEAK AND UNSTEADY ON HIS FEET. PT'S AND DAUGHTER CALLED MULTIPLE TIMES AND THEY ARE CONCERNED ABOUT HIS THROAT. PT IS SUPPOSED TO FOLLOW UP WITH DR ORTIZ AFTER DISCHARGE FROM REHAB. PT'S SAID SHE WANTS HIM TO GO TO ANOTHER FACILITY BECAUSE SHE CAN'T TAKE CARE OF HIM. PT HAD DIALYSIS AGAIN TODAY TO REMOVE FLUID BUT ONLY TOLERATED THE REMOVAL OF 1 LITER. FALL PRECAUTIONS AND HOURLY ROUNDING CONTINUE.
[2019-11-22 19:48] VITALS: BP 88/53
[2019-11-22 20:00] VITALS: BP 121/67
--- NOTE | 2019-11-23 04:11 | NUR ---
ASSUMED CARE OF PT 11/22/19 AT APPROX 1930. PT A&OX4, ON OXYGEN 3L NC, VSS. FLUID RESTRICTION MAINTAINED. PT TURNED Q2H. ASSESSMENTS AND HOURLY ROUNDINGS COMPLETE. WILL CONTINUE TO MONITOR.
[2019-11-23 05:05] LABS: INR 2.9; PROTIME 28.9 Seconds (9.20-11.50)
[2019-11-23 08:08] VITALS: BP 116/56
--- NOTE | 2019-11-23 17:11 | NUR ---
SW continuing to follow for safe dc planning and SNF placement. SW followed up with [facility] and their admissions is considering accepting pt pending assurance of medical stability and dialysis needs, etc. SW spoke with pt who is hopeful for [facility] to be able to accept pt. Possibly Tuesday. SW to continue to follow to assist with finalizing safe dc plan.
--- NOTE | 2019-11-23 18:45 | NUR ---
AM ASSESSMENT AND VITAL SIGNS COMPLETED DOCUMENTED. PT HAD A BETTER DAY, NO DIALYSIS NEEDED TODAY. FALL PRECAUTIONS AND HOURLY ROUNDING CONTINUE.
[2019-11-23 20:00] VITALS: BP 100/59
--- NOTE | 2019-11-24 00:47 | NUR ---
ASSUMED CARE AT 1930. PATIENT RESTED IN RECLINER UNTIL HS. UP WITH MIN ASSIST, GAIT BELT, WALKER. DOES NOT VOID, ON HEMODIALYSIS. RT ARM FISTULA POSITIVE FOR BRUIT AND THRILL, ARM MUCH LESS SWOLLEN THAN THE LAST TIME I CARED FOR PATIENT. TAKES PILLS WHOLE WITH WATER. DECLINED NERVE MEDICINE AT HS. O2 3L/NC. BREATHES BETTER WHEN HE IS NOT SLOUCHED DOWN IN HIS RECLINER. NO C/O PAIN. HOURLY ROUNDS CONTINUE. BED AND CHAIR ALARMS IN USE. CALL LITE IN REACH.
[2019-11-24 05:06] LABS: INR 3.6
--- NOTE | 2019-11-24 05:45 | NUR ---
SLEPT OFF AND ON. AWOKE AROUND 0510 C/O SOA AND ANXIETY. SPO2 98-99 %. REINFORCED EXHALING COMPLETELY, AND PURSED LIP BREATHING. GIVEN XANAX PER REQUEST. AFTER 15 MINUTES, PATIENT STATES THAT HE IS FEELING BETTER. NO C/O PAIN. STATED THAT HE WOKE UP SUDDENLY SOA. SUGGESTED HE USE THE BIPAP IN THE FUTURE, BUT PATIENT STATED HE DIDN'T WANT TO. HOURLY ROUNDS CONTINUE. BED ALARM ON. CALL LITE IN REACH.
[2019-11-24 08:28] VITALS: BP 102/63
[2019-11-24 16:30] VITALS: BP 100/49
--- NOTE | 2019-11-24 16:40 | NUR ---
ASSUMMED CARE OF PT AT 0730, PT ALERT AND ORIENTED, PT TRANSFERS WITH ASSIST OF 1, GB WALKER, DENIES PAIN, TAKING FOOD AND FLUIDS WELL, SHUNT RIGHT UPPER ARM, GD BRUIT AND THRILL, NO VOID, PARTICIPATED IN ALL THERAPIES THIS AM, TO DIALYSIS THIS PM, PER DIALYSIS NURSE PTS BLOOD PRESSURE LOW, PRN MIDODRINE DOSE GIVEN X 1, PRESSURES CONTINUED TO BE LOW,PT SLEEPY, CONFUSED, DIALYSIS STOPPED EARLY PT RETURNED TO ROOM AT 1630, NOTIFIED OF PT CONDITION IN DIALYSIS, ON RETURN TO ROOM PT ALERT AND ORIENTED, TALKING, ASKING FOR REMOTE TO WATCH TV, VSS, HOURLY ROUNDING COMPLETED, ASSESSMENT COMPLETE, WILL CONTINUE TO MONITOR.
[2019-11-24 19:45] VITALS: BP 96/57
--- NOTE | 2019-11-24 23:05 | NUR ---
ASSUMED CARE AT 1930. RESTING IN BED AT BEGINNING OF SHIFT. PATIENT VERY SLEEPY, BUT AROUSABLE WHEN NAME CALLED. TAKES PILLS WHOLE WITH WATER. LANTUS HELD DUE TO POOR SUPPER CONSUMPTION, MISSED LUNCH DUE TO DIALYSIS AND BLOOD SUGAR OF 76. ATE TWO CHOCOLATE PUDDINGS HS SNACK. DSSG DRY TO RUE FISTULA. BRUIT AND THRILL POSITIVE. BLOOD PRESSURE 96/57 LT ARM CHECKED TWICE. O2 3L/NC. TURNS SELF. DECLINED ALPRAZOLAM AT HS, WILL TAKE IT IF HE GETS ANXIOUS AT NOC. RESTING WITH HOB ELEVATED FOR BREATHING. DENIES PAIN. HOURLY ROUNDS CONTINUE. BED ALARM ON. CALL LITE IN REACH.
[2019-11-25 04:48] LABS: INR 4.3; PROTIME 41.9 Seconds (9.20-11.50)
--- NOTE | 2019-11-25 06:18 | NUR ---
SLEPT OFF AND ON THROUGH THE NIGHT. TOOK XANAX AT 2351 WITH GOOD RESULTS. NO FURTHER ANXIETY OR C/O SOA WHILE RESTING. GOT UP ONCE TO USE BSC THINKING HE NEEDED BM, BUT NO RESULTS. UP WITH SBA, GAIT BELT, WALKER. NO C/O PAIN. HOURLY ROUNDS CONTINUE. CALL LITE IN REACH. BED ALARM ON.
[2019-11-25 08:00] VITALS: BP 105/60
--- NOTE | 2019-11-25 16:35 | NUR ---
ASSUMMED CARE OF PT AT 0730, PT TRANSFERS WITH ASSIST OF 1 GB WALKER, LARGE BM X 1 PER BSC, NO URINE OUTPUT THIS SHIFT, MAINTAINING FLUID RESTRICTION, 02 ON AT 3 L, NO COMPLAINTS OF SOA THIS SHIFT, UP IN CHAIR MUCH OF SHIFT, APETITE GD, SHUNT IN BELLA HAS GD BRUIT/THRILL, HOURLY ROUNDING COMPLETE, ASSESSMENT COMPLETE, WILL CONTINUE TO MONITOR.
[2019-11-25 20:00] VITALS: BP 98/57
--- NOTE | 2019-11-25 23:27 | NUR ---
ASSUMED CARE AT 1930. PATIENT RESTING IN BED. AWAKENED FOR HS MEDS AND ASSESSMENT. DENIES PAIN. TAKES PILLS WHOLE WITH WATER. BRUIT AND THRILL POSITIVE TO RUE. CHOCOLATE PUDDING FOR HS SNACK. O2 3L/NC. NO SOA NOTED. PULLS SELF UP IN BED. TURNS SELF. NO C/O PAIN. HOURLY ROUNDS CONTINUE. BED ALARM ON. CALL LITE IN REACH.
[2019-11-26 05:46] LABS: HEMATOCRIT 25.7 % (42.0-52.0); HEMOGLOBIN 8.1 gm/dL (14.0-18.0); MCH 28.8 pg (26.0-34.0); MCHC 31.4 g/dL (28.0-37.0); MCV 91.5 fL (80.0-100.0); NUCLEATED RBCS 0 /100WBC; PLATELET COUNT* 254 thou/uL (150-400); RBC 2.81 mil/uL (4.50-6.00); RDW-CV 18.5 % (10.5-14.5); WBC 4.6 thou/uL (4.0-11.0)
--- NOTE | 2019-11-26 05:48 | NUR ---
SLEPT MOST OF THE NIGHT. WOKE UP AT 0130, ASKING FOR TOAST, MUFFIN WITH BUTTER AND JELLY. WHEN TOLD THOSE ARE NOT AVAILABLE AT THAT TIME, PATIENT REQUESTED CHOCOLATE PUDDING. NO C/O PAIN. O2 3L/NC. TURNS SELF. MAINTAINED FLUID RESTRICTION. HOURLY ROUNDS CONTINUE. BED ALARM ON. CALL LITE IN REACH.
[2019-11-26 05:53] LABS: CREATININE 5.9 mg/dL (0.6-1.3); POTASSIUM 4.5 mmol/L (3.5-5.1); PROTIME 29.8 Seconds (9.20-11.50)
[2019-11-26 06:11] LABS: ABSOLUTE EOSINOPHILS 0.3 thou/uL (0.0-0.7); ABSOLUTE LYMPHOCYTES 1.2 thou/uL (0.8-5.3); ABSOLUTE MONOCYTES 0.3 thou/uL (0.0-1.2); ABSOLUTE NEUTROPHILS 2.9 thou/uL (1.6-8.1); PLATELET ESTIMATE ADEQUATE
[2019-11-26 06:14] LABS: ANISOCYTOSIS 1+; OVALOCYTES Occasional; POIKILOCYTOSIS 1+; TARGET CELLS Occasional
--- NOTE | 2019-11-26 16:32 | NUR ---
Pt was switched back to MWF dialysis schedule and deemed medically stable to be able to dc to SNF tomorrow. 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 SW called [facility] admissions who are able to accept pt for SNF tomorrow. SW spoke with pt and updated about SNF options. Pt/ in agreement with pt being able to go to [facility] SNF at mi. SW to fax updates and SW to assist with finalizing safe SNF placement at mi likely tomorrow.
--- NOTE | 2019-11-26 18:51 | NUR ---
PT A&OX4 VSS. MIN ASSIST W/ GAIT BELT/WALKER. NO URINE R/T DIALYSIS. IV TO L HAND PATENT. DRESSING C/D/I. DIALYSIS THIS AFTERNOON W/ PT RETURNING TO ROOM APPROX 1840. CONCERNS OVER DIALYSIS SCHEDULE DISCUSSED WITH MEDICAL TEAM, AND HAVE BEEN ADDRESSED. PT MOST LIKELY TO DC TOMORROW AND DIALYSIS SCHEDULE WILL CONTINUE W/O ISSUE. PT ON 3L O2 BY NC. PT REMAINS ON FLUID RESTRICTION OF 1000ML. PT ACCUCHECK, INSULIN ADMINISTERED INDICATED. PT UP TO RECLINER THIS SHIFT. PER DR ELISE, DR ESPINO WAS CONTACTED REGARDING THIS PT APPROPRIATENESS FOR REHAB UNIT. PT DEEMED APPROPRIATE FOR DC TO SNF BY NEPHROLOGY. DR ELISE AND KENZIE MADE AWARE. CASE MANAGEMENT ADDRESSED THIS AND PLACEMENT FOUND AT [facility]. PRN DOSE OF MIDIDRINE ADJUSTED TO ADDRESS CONCERNS OF HYPOTENSION R/T DIALYSIS. PT RESTS IN BED AT THIS TIME WITH DINNER TRAY AND CALL LIGHT IN REACH. WILL CONTINUE TO MONITOR
[2019-11-26 19:15] VITALS: BP 120/77
--- NOTE | 2019-11-26 20:45 | NUR ---
RESTING QUIETLY IN BE AND WATCHING TV AT AN EXTREMELY HIGH VOLUME. 02 NC AT 3 LITERS. TOOK MEDICATIONS WHOLE WITH WATER. CALL LIGHT WITHIN REACH. NO COMPLAINTS VOICED.
--- NOTE | 2019-11-27 04:36 | NUR ---
COMPLAINED OF SHORTNESS OF BREATH AT ABOUT 0110. 02 SAT 98% WITH 02 NC AT 3 LITERS. GAVE PRN XANAX. NO FURTHER COMPLAINT OF SHORTNESS OF BREATH SINCE THEN. POSSIBLE DISCHARGE TO [facility] TODAY. HOURLY ROUNDING IN PROGRESS.
[2019-11-27 07:58] LABS: INR 2.2; PROTIME 21.9 Seconds (9.20-11.50)
[2019-11-27 08:15] VITALS: BP 103/61
[2019-11-27] MEDS ORDERED: MIDODRINE HCL 55 M1 PO (10:35)
[2019-11-27 12:44] VITALS: BP 103/61
--- NOTE | 2019-11-27 12:57 | NUR ---
Pt to dc to [facility] today; CORY spoke with pt nurse and [facility] admissions and pt to be picked up at 2 pm to be transported by van to [facility]. CORY faxed dc orders to [facility] and chart is to be copied for continuation of care. CORY called pt who is aware and in agreement with dc plan. [facility] called [facility] and informed of pt dc today as he will return to clinic for HD MWF. CORY faxed needed info and flow sheets to [facility]. [facility] ph [phone]
--- NOTE | 2019-11-27 14:13 | NUR ---
ASSUMMED CARE OF PT AT 0730, PT ALERT AND ORIENTED, TRANSFERS WITH ASSIST OF 1 GB WALKER, SHUNT INTACT TO RIGHT UPPER ARM, GD BRUIT AND THRILL, O2 ON AT 3 L WITH GD BRUIT AND THRILL, DENIES PAIN, MAINTAINING FLUID RESTRICTION, NO BM THIS SHIFT, NO VOID THIS SHIFT, TAKING FOOD WELL, PARTICIPATED IN ALL THERAPIES, HOURLY ROUNDING COMPLETED, ORDERS OBTAINED FOR DISCHARGE, REPORT CALLED TO FACILITY, TALKED WITH , PT TRANSPORTED WITH BELONGINGS TO MAIN ENTRANCE WITH [facility].
== END 2019-11-27 14:37 | DRG 939 ==
LOC: M.REH 13:08
PROVIDERS: Internal Medicine; Internal Medicine Nephrology; ADMIT Physical Medicine & Rehabilitation
PROC: B51W1ZZ Fluoroscopy of Dialysis Shunt/Fistula using Low Osmolar Contrast (ICD-10-PCS; principal; 2019-11-14)
PROC: 057 Upper Veins, Dilation (ICD-10-PCS; principal; 2019-11-14)
PROC: B51V1ZZ Fluoroscopy of Other Veins using Low Osmolar Contrast (ICD-10-PCS; principal; 2019-11-14)
DX: R53.81 Other malaise (principal); N18.6 End stage renal disease; E43 Unspecified severe protein-calorie malnutrition; J18.1 Lobar pneumonia, unspecified organism; J10.1 Influenza due to other identified influenza virus with other respiratory manifestations; I50.22 Chronic systolic (congestive) heart failure; D68.59 Other primary thrombophilia; I42.9 Cardiomyopathy, unspecified; J96.11 Chronic respiratory failure with hypoxia; R65.10 Systemic inflammatory response syndrome (SIRS) of non-infectious origin without acute organ dysfunction; I13.2 Hypertensive heart and chronic kidney disease with heart failure and with stage 5 chronic kidney disease, or end stage renal disease; I87.1 Compression of vein; I25.10 Atherosclerotic heart disease of native coronary artery without angina pectoris; E78.00 Pure hypercholesterolemia, unspecified; E11.22 Type 2 diabetes mellitus with diabetic chronic kidney disease; I27.20 Pulmonary hypertension, unspecified; M06.9 Rheumatoid arthritis, unspecified; E78.5 Hyperlipidemia, unspecified; I48.91 Unspecified atrial fibrillation; I95.1 Orthostatic hypotension; D63.1 Anemia in chronic kidney disease; E87.5 Hyperkalemia; R91.1 Solitary pulmonary nodule; J43.9 Emphysema, unspecified; Z95.2 Presence of prosthetic heart valve; Z99.2 Dependence on renal dialysis; Z79.01 Long term (current) use of anticoagulants; Z95.5 Presence of coronary angioplasty implant and graft; Z88.0 Allergy status to penicillin; Z87.891 Personal history of nicotine dependence; Z68.24 Body mass index [BMI] 24.0-24.9, adult; Z82.49 Family history of ischemic heart disease and other diseases of the circulatory system; Z83.3 Family history of diabetes mellitus; R26.9 Unspecified abnormalities of gait and mobility

== ENCOUNTER → 2020-01-10 | Outpatient (CLI) | payer MEDICARE ==
[2020-01-10 10:30] LABS: ALBUMIN 2.6 g/dL (3.4-5.0); CREATININE 4.8 mg/dL (0.6-1.3); PHOSPHORUS* 4.3 mg/dL (2.5-4.9); POTASSIUM 4.3 mmol/L (3.5-5.1)
== END ==
LOC: M.CT 11-22 09:51 → M.LAB 09:59 → M.CT 11:00
PROVIDERS: ATTEND Surgery
DX: J43.9 Emphysema, unspecified (principal); I70.0 Atherosclerosis of aorta; I71.9 Aortic aneurysm of unspecified site, without rupture; R59.0 Localized enlarged lymph nodes; I51.7 Cardiomegaly; R91.8 Other nonspecific abnormal finding of lung field